=== PATIENT | male | born 1940 | race African-American/Black ===

== ENCOUNTER 2016-11-16 20:04 | Inpatient (IN) ==
[2016-11-16] MEDS ORDERED: SUCCINYLCHOLINE 200 MG/10 ML VIAL IV STA (20:09)
[2016-11-16] MEDS ORDERED: ETOMIDATE 20 MG/10 ML VIAL IV STA (20:09)
[2016-11-16] MEDS ORDERED: PROPOFOL 1,000 MG/100 ML BOTTLE IV ONE (20:12)
[2016-11-16] MEDS ORDERED: hydrALAZINE 20 MG/1 ML VIAL IV STA (20:15)
[2016-11-16] MEDS: PROPOFOL 1,000 MG/100 ML BOTTLE IV SCH (20:17)
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
[2016-11-16] MEDS ORDERED: LEVOFLOXACIN INJ 750 MG in PREMIX 1 EACH IV STA (20:22)
[2016-11-16] MEDS ORDERED: methylPREDNISolone SOD SUC 125 MG/2 ML VIAL IV STA (20:22)
[2016-11-16] MEDS ORDERED: SUCCINYLCHOLINE 200 MG/10 ML VIAL ONE (20:24)
[2016-11-16] MEDS ORDERED: ETOMIDATE 20 MG/10 ML VIAL IV ONE (20:24)
[2016-11-16] MEDS ORDERED: VECURONIUM 10 MG VIAL IV ONE (20:29)
[2016-11-16] MEDS ORDERED: VECURONIUM 10 MG VIAL IV STA (20:32)
[2016-11-16 20:43] LABS: ABG Base Excess -2.9 MMOL/L (-2.5-2.5); ABG HCO3 24.6 MMOL/L (20-26); ABG Oxygen Saturation 96.7 % (95-100); ABG PCO2 54.8 MM HG (35-48); ABG PO2 94.7 MM HG (80-95); ABG TCO2 26.3 MMOL/L (23-27); Allen Test Positive; Pt O2 Delivery Device Ventilator
--- NOTE | 2016-11-16 20:44 | XRay Report ---
Portable chest Date: 11/16/2016 Clinical history: Endotracheal tube placement Comparison: 07/24/2016 Technique: Portable AP supine chest Findings: The heart is minimally enlarged with uncoiling the aorta. Chronic scarring in the lungs with minimal atelectasis. Calcified granulomata/nodes. Degenerative changes are noted with stable mediastinum. Impression: Minimal cardiomegaly. Chronic scarring with evidence of old healed granulomatous disease and minimal atelectasis. Endotracheal tube is in satisfactory position. PROCEDURE INTERPRETED AT [facility] DEPARTMENT OF RADIOLOGY Final Report Signed by: Dr. Kathryn Felton
[2016-11-16 20:51] LABS: Basophils # 0.1 10*3/uL (0.0-0.2); Basophils % 0.6 % (0.0-0.8); Eosinophils # 0.6 10*3/uL (0.0-0.87); Eosinophils % 7.4 % (0.00-10.9); Hematocrit 40.5 VOL% (42.0-52.0); Hemoglobin 13.1 GM/DL (14.0-18.0); Immature Granulocytes % 0.4 %; Immature Granulocytes Absolute 0.03 #; Lymphocytes # 2.6 10*3/uL (1.4-4.0); Lymphocytes % 34.2 % (21.2-54.2); Mean Corpuscular HGB Conc 32.3 GM/DL (32-36); Mean Corpuscular Hemoglobin 28 PG (27-34); Mean Corpuscular Volume 85.8 FL (87-102); Mean Platelet Volume 10.5 FL (9.6-12.0); Monocytes # 1.1 10*3/uL (0.11-0.8); Monocytes % 13.9 % (1.7-12.7); Neutrophils # 3.4 10*3/uL (1.4-7.4); Neutrophils % 43.5 % (38.7-73.9); Platelet Count 291 T/CUMM (130-400); Red Blood Count 4.72 MC/CUMM (3.8-5.5); Red Cell Distribution Width 14.6 % (9.3-17.3); White Blood Count 7.7 T/CUMM (4-12)
[2016-11-16 20:54] LABS: Apearance,Urine CLOUDY (Clear); Bacteria,Urine Many /HPF (Few); Bilirubin,Urine Negative (Negative); Blood, Urine Large mg/dL (Negative); Glucose,Urine (UA) Negative (Negative); Ketones,Urine Negative (Negative); Mucus,Urine Few /LPF (Occasional); Nitrite,Urine Negative (Negative); Protein,Urine 100 MG/DL; RBC,Urine 77 /HPF (0-4); Urine Color Amber (Yellow); Urine Specific Gravity 1.011 (1.001-1.035); Urine Urobilinogen < 2.0 EU/DL (0.2-1.0); WBC,Urine 820 /HPF (0-6)
[2016-11-16] MEDS ORDERED: SODIUM CHLORIDE 0.9% 1,000 ML IV STA ×2 (20:57→21:44)
[2016-11-16 21:02] LABS: Barbiturates Screen,Urine Negative (Negative); Benzodiazepines Screen,Urine Negative (Negative); Cannabinoid Screen,Urine Negative (Negative); Opiate Screen,Urine Negative (Negative); Phencyclidine Screen,Urine Negative (Negative)
[2016-11-16 21:04] LABS: D-Dimer <= 0.5 MG/L FEU; INR 3.4; PT Patient Result 38.4 SECS; Partial Thromboplastin Time 55.6 SECS (0-40)
[2016-11-16 21:05] LABS: Alanine Aminotransferase 23 U/L (16-61); Albumin 3.3 G/DL (3.4-5.0); Alkaline Phosphatase 137 U/L (45-117); Aspartate Amino Transferase 23 U/L (0-37); Bilirubin,Total < 0.39 MG/DL (0.2-1.0); Blood Urea Nitrogen 31 MG/DL (7-18); Calcium 8.7 MG/DL (8.5-10.1); Glucose 150 MG/DL (74-106); Osmolality,Calculated 288.4 MOS/KG (273-304); Potassium 5.8 MMOL/L (3.5-5.1); Sodium 140 MMOL/L (136-145); Total Protein 7.9 G/DL (6.4-8.3); Troponin I Only < 0.015 NG/ML (0.00-0.045)
[2016-11-16] MEDS ORDERED: LEVOFLOXACIN INJ 150 ML IV ONE (21:15)
[2016-11-16] MEDS ORDERED: methylPREDNISolone SOD SUC 125 MG/2 ML VIAL ONE (21:15)
--- NOTE | 2016-11-16 21:22 | XRay Report ---
Portable chest Date: 11/16/2016 Clinical history: Nasogastric tube placement Comparison: 11/16/2016 Technique: Portable AP sitting chest Findings: The heart is minimally enlarged with uncoiling of the aorta. Chronic scarring lungs with minimal atelectasis. Endotracheal tube and nasogastric tube are in satisfactory position. Degenerative changes are noted with stable mediastinum. Impression: Endotracheal tube and nasogastric tube in satisfactory position. Chronic scarring with minimal atelectasis and cardiomegaly. PROCEDURE INTERPRETED AT [facility] DEPARTMENT OF RADIOLOGY Final Report Signed by: Dr. Kathryn Felton
--- NOTE | 2016-11-16 21:26 | CT Report ---
Referring physician: Ilir Boykin Exam: CT brain without contrast Date: 11/16/2016 Comparison: 09/25/2016 Reason: Alteration of consciousness Technique: Axial images of the head were obtained without the use of contrast. Total DLP was 997.90 mGy*cm. Findings: The right lateral ventricle remains larger in size than the left with no midline displacement.. There is no evidence of an acute infarction, recent intracranial hemorrhage or abnormal mass effect. Large right MCA distribution infarction including the right basal ganglia location. Extensive atrophy with associated prominence of the subarachnoid spaces. The osseous structures appear intact. The mastoid air cells are clear. Multiple scalp calcifications are noted. Progressive mucosal thickening/fluid in the visualized paranasal sinuses. Impression: No acute intracranial abnormality is identified. Large right MCA distribution infarction with prominent atrophy and associated chronic subdural hygromas. Progressive sinusitis. The CT exam was performed using one or more of the following dose reduction techniques: Automated exposure control and adjustment of the mA and/or kV according to patient size. PROCEDURE INTERPRETED AT [facility] DEPARTMENT OF RADIOLOGY Final Report Signed by: Dr. Kathryn Felton
[2016-11-16 21:52] LABS: ABG Base Excess -1.2 MMOL/L (-2.5-2.5); ABG HCO3 25.4 MMOL/L (20-26); ABG Oxygen Saturation 93.4 % (95-100); ABG PCO2 51.2 MM HG (35-48); ABG PH 7.314 (7.35-7.45); ABG PO2 69.8 MM HG (80-95); Allen Test Positive; Pt O2 Delivery Device Ventilator
[2016-11-16] MEDS ORDERED: ONDANSETRON 4 MG/2 ML VIAL IV PRN (21:56)
[2016-11-16] MEDS ORDERED: GLUCAGON 1 MG VIAL IM PRN (21:56)
[2016-11-16] MEDS ORDERED: hydrALAZINE 20 MG/1 ML VIAL IV PRN (21:56)
[2016-11-16] MEDS ORDERED: DEXTROSE 50% 25 GM/50 ML VIAL IV PRN (21:56)
[2016-11-16] MEDS ORDERED: ALBUTEROL/IPRATROPIUM 3 ML NEB RESP TX SCH (22:00)
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
[2016-11-16] MEDS: PHENYTOIN 100 MG/2 ML VIAL IV SCH (23:13)
[2016-11-16] MEDS: INSULIN REGULAR 100 UNIT/ML SUBCUT SCH (23:40)
[2016-11-16] MEDS: SODIUM CHLORIDE 0.45% 1,000 ML IV SCH (23:52)
[2016-11-17] MEDS: ALBUTEROL/IPRATROPIUM 3 ML NEB RESP TX SCH ×4 (00:12→19:11)
[2016-11-17 03:25] LABS: ABG Base Excess -2.4 MMOL/L (-2.5-2.5); ABG HCO3 23.9 MMOL/L (20-26); ABG Oxygen Saturation 97.5 % (95-100); ABG PCO2 47.2 MM HG (35-48); ABG PH 7.322 (7.35-7.45); ABG PO2 104.6 MM HG (80-95); ABG TCO2 25.3 MMOL/L (23-27); Allen Test Positive; Pt O2 Delivery Device Ventilator
[2016-11-17] MEDS ORDERED: NOREPINEPHRINE 4 MG/4 ML VIAL IV ONE (04:21)
[2016-11-17 04:23] LABS: Basophils % 0.2 % (0.0-0.8); Eosinophils % 0.2 % (0.00-10.9); Hematocrit 36.9 VOL% (42.0-52.0); Hemoglobin 11.6 GM/DL (14.0-18.0); Immature Granulocytes % 0.4 %; Immature Granulocytes Absolute 0.04 #; Lymphocytes % 9.7 % (21.2-54.2); Mean Corpuscular HGB Conc 31.4 GM/DL (32-36); Mean Corpuscular Hemoglobin 28 PG (27-34); Mean Corpuscular Volume 88.5 FL (87-102); Mean Platelet Volume 10.3 FL (9.6-12.0); Monocytes # 0.2 10*3/uL (0.11-0.8); Monocytes % 1.7 % (1.7-12.7); Neutrophils # 8.8 10*3/uL (1.4-7.4); Neutrophils % 87.8 % (38.7-73.9); Platelet Count 286 T/CUMM (130-400); Red Blood Count 4.17 MC/CUMM (3.8-5.5); Red Cell Distribution Width 14.6 % (9.3-17.3)
[2016-11-17] MEDS ORDERED: NOREPINEPHRINE 8 MG in SODIUM CHLORIDE 0.9% 242 ML IV SCH (04:30)
--- NOTE | 2016-11-17 04:34 | EKG Report ---
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
[2016-11-17 04:43] LABS: INR 3.9
[2016-11-17 04:44] LABS: PT Patient Result 44.8 SECS; Partial Thromboplastin Time 74.2 SECS (0-40)
[2016-11-17 05:00] LABS: Alanine Aminotransferase 20 U/L (16-61); Albumin 2.8 G/DL (3.4-5.0); Alkaline Phosphatase 125 U/L (45-117); Aspartate Amino Transferase 22 U/L (0-37); Blood Urea Nitrogen 31 MG/DL (7-18); Calcium 9.2 MG/DL (8.5-10.1); Glucose 100 MG/DL (74-106); Potassium 5.3 MMOL/L (3.5-5.1); Sodium 143 MMOL/L (136-145)
[2016-11-17] MEDS: PROPOFOL 1,000 MG/100 ML BOTTLE IV SCH ×5 (05:10→21:53)
[2016-11-17] MEDS: INSULIN REGULAR 100 UNIT/ML SUBCUT SCH ×3 (05:43→17:17)
--- NOTE | 2016-11-17 06:56 | XRay Report ---
Exam: XR chest 1V portable Date: 11/17/2016 4:00 AM Indication: Follow-up ventilator Comparison: 11/16/2016 Technical: AP portable Findings: Endotracheal tube is at the level aortic knob and mid clavicle. Nasogastric traverses esophagus into the stomach. External cardiac leads are present. Mild prominence cortex silhouette. Lateral marginal osteophytes of the thoracic spine with ASVD. No obvious pneumothorax or consolidations or significant effusions. Impression: 1. Stable appearance of life-support tubing 2. Cardiomegaly without overt decompensation PROCEDURE INTERPRETED AT [facility] DEPARTMENT OF RADIOLOGY Final Report Signed by: Dr. Koko Bustamante
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
[2016-11-17 08:35] LABS: ABG Base Excess -4.1 MMOL/L (-2.5-2.5); ABG HCO3 21.5 MMOL/L (20-26); ABG Oxygen Saturation 99.5 % (95-100); ABG PH 7.337 (7.35-7.45); ABG PO2 376.9 MM HG (80-95); ABG TCO2 22.7 MMOL/L (23-27)
[2016-11-17] MEDS: SODIUM CHLORIDE 0.45% 1,000 ML IV SCH ×4 (09:10→22:34)
--- NOTE | 2016-11-17 09:33 | Internal Med Progress Note ---
Assessment and Plan (1) Acute respiratory failure Status: Acute Assessment and plan: 75-year-old male admitted to intensive care unit * Acute respiratory failure. He does not have history of any respiratory problems recently. Dr. Solo is following the patient * Change in mental status. He has had history of seizures recently. His medications have been adjusted. Will check his Dilantin level. He might have been post ictal when he went into respiratory distress * Hypertension. Will hold his blood pressure medications. He was on pressors during the night * Diabetes. Will keep him on a sliding scale * Possible sepsis. He has suprapubic catheter. Will consult urology. We will keep him on antibiotic * A. fib. INR is high. Will hold Coumadin * History of CVA with left hemiplegia. Stable * Mild dementia. Patient was recently in [facility] with agitation * No family members present Current Visit: Yes (2) A-fib Status: Acute Current Visit: Yes (3) Altered mental status Status: Acute Current Visit: Yes (4) Coronary artery disease Status: Acute Current Visit: No (5) Diabetes mellitus Status: Acute Current Visit: No (6) Essential hypertension Status: Acute Current Visit: No (7) Major depressive disorder Status: Acute Current Visit: No (8) Obstructive sleep apnea Status: Acute Current Visit: No (9) Recurrent urinary tract infection Status: Acute Current Visit: No (10) Seizure disorder Status: Acute Current Visit: No (11) Status post CVA Status: Acute Current Visit: No Internal Medicine - PN: Subj Interval history: Patient is seen and examined. Events of yesterday noted. He is on ventilator and unable to provide any history. He became unresponsive while he was sitting in his wheelchair at snf. He was found to be in respiratory distress in the emergency room and was intubated Exam (Progress Note) - Constitutional Vitals: Period Temp Pulse Resp BP Sys/Gregorio Pulse Ox Last 24 Hr 96.8 F-98.5 F 65-106 7-34 71-187/44-125 88-100 Exam: Examination: GENERAL: Sedated on ventilator HEENT: PERRLA. EOMI. Mucous membranes are moist. NECK: Neck is supple. No JVD. CVS: Regular rate and rhythm. S1 and S2 are normal. RESPIRATORY: Lungs are clear. No rales or rhonchi. ABDOMEN: Soft and nontender. Bowel sounds are present. No hepatosplenomegaly. Obese. Suprapubic catheter is in place EXT: No edema. Peripheral pulses are present. MEMORIAL COUNSELOR: Patient is sedated on ventilator SKIN: Warm and dry. MSK: No obvious deformity. Results - Labs CBC & BMP: 11/17/16 03:15 11/17/16 03:15
[2016-11-17] MEDS: SKIN HEALING OINT (AQUAPHOR) 50 GM TUBE TOP PRN (10:24)
[2016-11-17] MEDS: PHENYTOIN 100 MG/2 ML VIAL IV SCH ×2 (10:24→21:54)
[2016-11-17] MEDS: HYDROCORTISONE 100 MG VIAL IV SCH ×2 (10:24→18:40)
--- NOTE | 2016-11-17 12:20 | Urology Consultation ---
History of Present Illness - Data of Consult Consult date: 11/17/16 - Consult Narrative History of present illness: Mr. Emily Hess is a 75 year old male Mr. Shore is a 75-year-old black male who is seen in consultation because of a suprapubic catheter. I have seen the patient in the past but it has been several years ago he had a history of urethral stricture and was referred to [facility] for possible surgery. He is in a assisted now and has a suprapubic catheter. The patient is on ventilator and there is no family so I cannot get any history. On physical exam the suprapubic site is well-healed and the catheter this and there looks like it has been in for a long time and does not look like it has been change recent rate recently so I am going recommend that we change the suprapubic catheter. Based on his condition and his past history I doubt I would have any recommendations other than continuing suprapubic catheter at this time. His urine shows hematuria and pyuria which we would expect with a chronic catheterization and he has a slight elevation of his creatinine. CC: Ludwin Tyson MD - Home Medications and Allergies Home Medications: Home Medications Medication Instructions Recorded Confirmed Type Allopurinol 450 mg PO DAILY 08/23/15 11/16/16 History Amlodipine Besylate 10 mg PO DAILY 08/23/15 11/16/16 History Furosemide Tab [Lasix Tab] 60 mg PO DAILY 08/23/15 11/16/16 History Lisinopril [Prinivil] 20 mg PO BID 08/23/15 11/16/16 History Omeprazole 1 tablet PO DAILY 08/23/15 11/16/16 History Sertraline HCl 100 mg PO DAILY 08/23/15 11/16/16 History Insulin Aspart Prot/Asp 70/30 74 unit SUBCUT TIDAC 05/27/16 11/16/16 History [NovoLOG Mix 70/30] HYDROcodone/ACETAMIN 7.5-325 7.5 mg PO Q6HR PRN 05/28/16 11/16/16 History [[place] 7.5-325] Lactulose 30 ml PO BID 05/28/16 11/16/16 History Melatonin/Pyridoxine HCl (B6) 9 mg PO BEDTIME 05/28/16 11/16/16 History [Melatonin 3 mg Tablet] Potassium Chloride [Klor-Con 10] 10 meq PO TID 05/28/16 11/16/16 History Aspirin Chew Tab 81 mg PO DAILY #100 tablet 05/31/16 11/16/16 Rx Atenolol 25 mg PO DAILY 06/08/16 11/16/16 History Phenytoin ER Cap [Dilantin Cap] 200 mg PO BID #120 capsule 06/19/16 11/16/16 Rx Warfarin [Coumadin] 5 mg PO DAILY 07/24/16 11/16/16 History Pregabalin [Lyrica] 150 mg PO BEDTIME #30 capsule 07/27/16 11/16/16 Rx OLANZapine [Olanzapine] 5 mg PO BID 10/21/16 11/16/16 History Polyethylene Glycol Powder 1 packet PO DAILY 10/21/16 11/16/16 History [Miralax] LORazepam INJ [Ativan Inj] 2 mg IM TID PRN 11/16/16 11/16/16 History Allergies/Adverse Reactions: Allergies Allergy/AdvReac Type Severity Reaction Status Date / Time Penicillins Allergy Intermediate ITCHING Verified 11/16/16 20:16 ampicillin Allergy Unknown Unknown/Unable Verified 11/16/16 20:16 to obtain Exam - Constitutional Vitals: Period Temp Pulse Resp BP Sys/Gregorio Pulse Ox Last 24 Hr 96.8 F-98.5 F 65-106 7-34 71-187/41-125 88-100 Results - Labs CBC & BMP: 11/17/16 03:15 11/17/16 03:15
[2016-11-17 14:11] LABS: Apearance,Urine CLOUDY (Clear); Bacteria,Urine Moderate /HPF (Few); Bilirubin,Urine Negative (Negative); Blood, Urine Negative (Negative); Glucose,Urine (UA) Negative (Negative); Ketones,Urine Negative (Negative); Mucus,Urine Occasional /LPF (Occasional); Nitrite,Urine Negative (Negative); Protein,Urine Negative; RBC,Urine 6 /HPF (0-4); Urine Color Yellow (Yellow); Urine Specific Gravity 1.013 (1.001-1.035); Urine Urobilinogen < 2.0 EU/DL (0.2-1.0); WBC,Urine 53 /HPF (0-6)
--- NOTE | 2016-11-17 15:10 | ECHO Report ---
Huang Diaz Exam Date: 11/17/2016 09:43 Referring Physician: Technologist: Reyna Garzon Age: 75 Ht (in): 72 Wt (lb): 223 Gender: M Exam Location: [facility] Echo Indications: acute resp failure, SAIGE, UTI, S/P CVA, lt.hemiplegia, CAD, seizure, altered mental status, SOB, Pt. on vent BP: 71 / 45 HR: 77 Rhythm: Sinus Technical Quality: Technically difficult study IMPRESSIONS Technically difficult study.EF 60 % . Grade I/IV diastolic dysfunction (abnormal relaxation filling pattern), normal to mildly elevated filling pressures. Normal right ventricular size and systolic function. The right atrium is mildly enlarged. The left atrium is mildly enlarged. Mitral valve sclerosis. No mitral valve regurgitation. Aortic valve sclerosis. No aortic valve regurgitation. Moderate tricuspid valve regurgitation. [id number]. Pulmonic valve not well visualized. No pericardial effusion. Normal size aortic root and proximal ascending aorta No LV or LA clot seen.. MEASUREMENTS (Male / Female) Normal Values 2D ECHO LV Diastolic Diameter PLAX 3.2 cm 4.2 - 5.9 / 3.9 - 5.3 cm LV Systolic Diameter PLAX 2.1 cm LV Fractional Shortening PLAX 36.2 % IVS Diastolic Thickness 1.7 cm 0.6 - 1.0 / 0.6 - 0.9 cm LVPW Diastolic Thickness 1.4 cm 0.6 - 1.0 / 0.6 - 0.9 cm RV Internal Dim ED PLAX 2.7 cm Aortic Root Diameter 3.1 cm LA Systolic Diameter LX 3.6 cm 3.0 - 4.0 / 2.7 - 3.8 cm DOPPLER TR Peak Velocity 266.0 cm/s TR Peak Gradient 28.3 mmHg FINDINGS Left Ventricle EF 60 % . Grade I/IV diastolic dysfunction (abnormal relaxation filling pattern), normal to mildly elevated filling pressures. Right Ventricle Normal right ventricular size and systolic function. Right Atrium The right atrium is mildly enlarged. Left Atrium The left atrium is mildly enlarged. Mitral Valve Mitral valve sclerosis. No mitral valve regurgitation. Aortic Valve Aortic valve sclerosis. No aortic valve regurgitation. Tricuspid Valve Morphologically normal tricuspid valve. Moderate tricuspid valve regurgitation. [id number]. Pulmonic Valve Pulmonic valve not well visualized. Pericardium No pericardial effusion. Aorta Normal size aortic root and proximal ascending aorta. Grady Plavac (Electronically Signed) Final Date: 17 November 2016 15:09
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
[2016-11-17] MEDS: LEVOFLOXACIN INJ 750 MG in PREMIX 1 EACH IV SCH (20:38)
[2016-11-18] MEDS: INSULIN REGULAR 100 UNIT/ML SUBCUT SCH ×4 (00:37→18:52)
[2016-11-18] MEDS: ALBUTEROL/IPRATROPIUM 3 ML NEB RESP TX SCH ×4 (01:20→19:16)
[2016-11-18] MEDS: PROPOFOL 1,000 MG/100 ML BOTTLE IV SCH ×4 (02:42→18:26)
[2016-11-18 04:04] LABS: ABG Base Excess -2.3 MMOL/L (-2.5-2.5); ABG HCO3 22.8 MMOL/L (20-26); ABG Oxygen Saturation 98.9 % (95-100); ABG PCO2 40.1 MM HG (35-48); ABG PH 7.372 (7.35-7.45); ABG PO2 156.8 MM HG (80-95); Allen Test Positive; Pt O2 Delivery Device Ventilator
[2016-11-18] MEDS: SODIUM CHLORIDE 0.45% 1,000 ML IV SCH ×5 (04:24→22:00)
[2016-11-18 04:55] LABS: Basophils % 0.1 % (0.0-0.8); Eosinophils % 0.1 % (0.00-10.9); Hematocrit 31.9 VOL% (42.0-52.0); Hemoglobin 10.3 GM/DL (14.0-18.0); Immature Granulocytes % 0.4 %; Immature Granulocytes Absolute 0.04 #; Lymphocytes # 1.8 10*3/uL (1.4-4.0); Lymphocytes % 19.7 % (21.2-54.2); Mean Corpuscular HGB Conc 32.3 GM/DL (32-36); Mean Corpuscular Hemoglobin 28 PG (27-34); Mean Corpuscular Volume 85.5 FL (87-102); Mean Platelet Volume 10.1 FL (9.6-12.0); Monocytes % 10.5 % (1.7-12.7); Neutrophils # 6.4 10*3/uL (1.4-7.4); Neutrophils % 69.2 % (38.7-73.9); Platelet Count 265 T/CUMM (130-400); Red Blood Count 3.73 MC/CUMM (3.8-5.5); Red Cell Distribution Width 14.6 % (9.3-17.3); White Blood Count 9.2 T/CUMM (4-12)
[2016-11-18 05:15] LABS: INR 3.7
[2016-11-18 05:24] LABS: Calcium 8.2 MG/DL (8.5-10.1); Osmolality,Calculated 287.5 MOS/KG (273-304); Potassium 4.5 MMOL/L (3.5-5.1)
--- NOTE | 2016-11-18 06:33 | Pulmonology Progress Note ---
Pulmonary - PN: Subj Interval history: 75-year-old white male who lives in a residential. He was brought in unresponsive. Has urinary tract infection. Previous stroke. Starting to wake up now. He does have a seizure disorder and his Dilantin level was 19. He is on the ventilator and his ABGs are improved. Chest x-ray is clear. Will progress with weaning today. Exam (Progress Note) - Constitutional Vitals: Period Temp Pulse Resp BP Sys/Gregorio Pulse Ox Last 24 Hr 97.5 F-97.9 F 68-95 7-26 79-177/42-89 98-100 Exam: Sedated. Vital signs normal. Pupils react to light. Arcus senilis. Orotracheal tube in place. Neck supple. Chest clear equal breath sounds. Heart normal rate rhythm no murmurs. Abdomen soft no masses. Bowel sounds present. Extremities no clubbing cyanosis trace of edema. Results - Labs CBC & BMP: 11/18/16 04:18 11/18/16 04:18 Lab Results: I have reviewed the past 24 hour labs - Diagnostic Findings Procedure: Chest x-ray: image reviewed by me (Lung bryant clear. ET tube good position.) Assessment and Plan (1) Acute respiratory failure Status: Acute Assessment and plan: We will adjust ventilator settings. Has a mild acidosis. There is no reported underlying chronic lung problems. He has been on the ventilator about 10 years ago however. Respiratory acidosis. 11/18/2016 improved. Will reduce PEEP and change to IMV. Begin weaning trials. Current Visit: Yes (2) Obstructive sleep apnea Status: Acute Assessment and plan: We will keep this in mind when we get to the point of extubation. Will need CPAP at that time and close watch of mental status. Current Visit: No (3) Recurrent urinary tract infection Status: Acute Assessment and plan: Urinalysis certainly consistent with urinary tract infection. May have sepsis due to this. However there is no fever and his white blood count is normal. He does have elevated lactic acid level decreased level of consciousness and hypotension. 11/18/2016 no report yet on urine culture. Continuing empiric antibiotics. Renal function looks good with creatinine 1.2. Current Visit: No (4) Status post CVA Status: Acute Assessment and plan: Previous right middle cerebral artery stroke with dense left hemiplegia. He also has some dementia. Current Visit: No (5) Left hemiplegia Status: Acute Assessment and plan: We will keep in mind when evaluating responsiveness. 11/18/2016 only moving right side when alert. Current Visit: No (6) Coronary artery disease Status: Acute Assessment and plan: Previous coronary stents and coronary bypass surgery. Cardiac enzymes are negative thus far. 11/18/2016 normal LV ejection fraction on echo. Has mild pulmonary hypertension. Current Visit: No (7) Seizure disorder Status: Acute Assessment and plan: Defer to neurology. 11/18/2016 has been seen by neurology. Dilantin level 19. No seizures. Current Visit: No (8) Altered mental status Status: Acute Assessment and plan: Unresponsive but presently is on propofol 11/18/2016 I am told by nurses that patient is responsive when propofol is held. He is currently sedated Current Visit: No
--- NOTE | 2016-11-18 07:34 | XRay Report ---
Exam: XR chest 1V portable Date: 11/18/2016 4:00 AM Indication: Follow-up ventilator respiratory failure Comparison: 11/17/2016 Technical: AP portable Findings: Endotracheal tube at the level aortic knob. Nasogastric traverses esophagus. Mild cardiac enlargement present. External cardiac leads are present. Mediastinum is otherwise intact. Lateral marginal osteophytes thoracic spine. No pneumothorax. Minimal interstitial thickening in the infrahilar regions bilaterally without obvious effusions Impression: 1. Stable appearance of life-support tubing 2. No significant interval changes. PROCEDURE INTERPRETED AT [facility] DEPARTMENT OF RADIOLOGY Final Report Signed by: Dr. Koko Bustamante
--- NOTE | 2016-11-18 07:52 | Urology Progress Note ---
Urology - PN: Subj Interval history: The patient's blood culture is positive. I have not been able to get any further history about why the patient has a suprapubic catheter but he will of course have a chronic urinary tract infection as long as he has this. Going recommend we do a renal ultrasound to evaluate any possible upper tract obstruction Exam - Constitutional Vitals: Period Temp Pulse Resp BP Sys/Gregorio Pulse Ox Last 24 Hr 97.6 F-97.9 F 69-95 12-21 85-177/49-89 98-100 Results - Labs CBC & BMP: 11/18/16 04:18 11/18/16 04:18
[2016-11-18 07:55] LABS: ABG Base Excess -2.3 MMOL/L (-2.5-2.5); ABG HCO3 22.5 MMOL/L (20-26); ABG Oxygen Saturation 99.3 % (95-100); ABG PCO2 39.3 MM HG (35-48); ABG TCO2 20.6 MMOL/L (23-27)
--- NOTE | 2016-11-18 08:23 | Internal Med Progress Note ---
Assessment and Plan (1) Acute respiratory failure Status: Acute Assessment and plan: 75-year-old male admitted to intensive care unit * Acute respiratory failure. He is waking up. Weaning will be started from ventilator * Change in mental status. Dilantin level is okay * Hypertension. Will hold his blood pressure medications. He was on pressors during the night * Diabetes. Will keep him on a sliding scale * Possible sepsis. Blood cultures are positive for gram-positive cocci. Will add vancomycin * A. fib. INR is high. Will hold Coumadin * History of CVA with left hemiplegia. Stable * No family members present Current Visit: Yes (2) A-fib Status: Acute Current Visit: Yes (3) Altered mental status Status: Acute Current Visit: Yes (4) Coronary artery disease Status: Acute Current Visit: No (5) Diabetes mellitus Status: Acute Current Visit: No (6) Essential hypertension Status: Acute Current Visit: No (7) Major depressive disorder Status: Acute Current Visit: No (8) Obstructive sleep apnea Status: Acute Current Visit: No (9) Recurrent urinary tract infection Status: Acute Current Visit: No (10) Seizure disorder Status: Acute Current Visit: No (11) Status post CVA Status: Acute Current Visit: No Internal Medicine - PN: Subj Interval history: Patient is seen and examined. He appears comfortable on the ventilator Exam (Progress Note) - Constitutional Vitals: Period Temp Pulse Resp BP Sys/Gregorio Pulse Ox Last 24 Hr 97.6 F-97.9 F 69-95 12-21 85-177/49-86 98-100 Exam: Examination: GENERAL: Sedated on ventilator HEENT: PERRLA. EOMI. NECK: Neck is supple. No JVD. CVS: Regular rate and rhythm. S1 and S2 are normal. RESPIRATORY: Lungs are clear. No rales or rhonchi. ABDOMEN: Soft and nontender. Obese. Suprapubic catheter is in place EXT: No edema. Peripheral pulses are present. CUFF SLITTER: Patient is sedated on ventilator SKIN: Warm and dry. MSK: No obvious deformity. Results - Labs CBC & BMP: 11/18/16 04:18 11/18/16 04:18
[2016-11-18] MEDS: HYDROCORTISONE 100 MG VIAL IV SCH ×2 (08:27→20:35)
--- NOTE | 2016-11-18 09:22 | Neurology Progress Note ---
Neurology - PN : Subjective Interval history: Patient seems to be doing better. He would wake up when he is off of sedation. Following commands in the right side. He has a spastic left hemiparesis. No seizures reported Exam (Progress Note) - Constitutional Vitals: Period Temp Pulse Resp BP Sys/Gregorio Pulse Ox Last 24 Hr 97.2 F-97.9 F 69-95 12-21 85-177/49-86 98-100 Exam: GENERAL: Patient is in no acute distress. NECK: Neck is supple. There is no JVD. No carotid bruits present. No thyroid masses. CVS: First and second heart sounds are normal. There is no S3 present. Regular rate and rhythm. RESPIRATORY: Lungs are clear to auscultation without any rales or rhonchi. ABDOMEN: Soft and non-tender. Bowel sounds are present. There is no hepatosplenomegaly. EXT: There is no palpable edema. Peripheral pulses are present. Skin: No rashes Central Nervous system: General: on Vent Speech:On vent Comprehension: He is sedated at this time however when diprivan is off he is following commands and moving appropriate Facial expressions: Normal Cranial Nerves: CN1/Olfactory: Normal CN II/ Optic: Normal, Visual Humphrey unreliable CN III, and : MAYA & EOMI CN V: Normal & intact CN VII: face is symmetric CNVIII: Normal CN XI/X/XI/XII: Intact and Normal Motor: Bulk and Tone is normal. Strength cannot be assessed however he has left sided spasticity Sensory: Cannot be assessed Reflexes: 1+ and symmetrical Cerebellar function: Cannot be assessed Toes: Equivocal Gait: Cannot be assessed Results - Labs CBC & BMP: 11/18/16 04:18 11/18/16 04:18 Assessment and Plan (1) History of seizure Status: Acute Assessment and plan: Continue Dilantin for now. No witnessed seizure reported. Current Visit: Yes (2) Altered level of consciousness Status: Acute Assessment and plan: Etiology is not clear. Could very well be due to UTI and urosepsis. No clear evidence of a stroke Continue current supportive management Patient is getting CPAP trials Hopefully will be extubated in next day or 2 Current Visit: No
[2016-11-18] MEDS: VANCOMYCIN INJ 1,000 MG in SODIUM CHLORIDE 0.9% 250 ML IV SCH ×2 (11:09→20:36)
[2016-11-18] MEDS: PHENYTOIN 100 MG/2 ML VIAL IV SCH ×2 (11:09→22:00)
--- NOTE | 2016-11-18 15:09 | Ultrasound Report ---
Exam: US renal Bilateral Date: 11/18/2016 7:52 AM Comparison: 06/10/2016 Indication: Sepsis, evaluate for obstruction Technique:[Multiple transabdominal real-time scans were obtained] of the kidneys. Color-flow scans obtained. Ultrasound images were captured and stored. Findings: Right kidney measures 90 x 52 x 41 mm. Left kidney measures 109 x 47 x 41 mm. 30 x 26 x 26 mm simple appearing cyst in the upper pole right kidney. 18 x 18 x 17 mm simple appearing cyst in the lower pole of the left kidney. No hydronephrosis. Color-flow documented in the kidneys. 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 No hydronephrosis. PROCEDURE INTERPRETED AT [facility] DEPARTMENT OF RADIOLOGY Final Report Signed by: Dr. Kathryn Felton
[2016-11-18] MEDS: LEVOFLOXACIN INJ 750 MG in PREMIX 1 EACH IV SCH (20:36)
[2016-11-19] MEDS: PROPOFOL 1,000 MG/100 ML BOTTLE IV SCH ×2 (00:07→04:19)
[2016-11-19] MEDS: INSULIN REGULAR 100 UNIT/ML SUBCUT SCH ×4 (00:27→18:27)
[2016-11-19] MEDS: ALBUTEROL/IPRATROPIUM 3 ML NEB RESP TX SCH ×4 (01:10→19:25)
[2016-11-19 03:05] LABS: Allen Test Positive; Pt O2 Delivery Device Ventilator
[2016-11-19 03:17] LABS: ABG Base Excess -1.7 MMOL/L (-2.5-2.5); ABG HCO3 23.2 MMOL/L (20-26); ABG PH 7.381 (7.35-7.45); ABG PO2 105.5 MM HG (80-95); ABG TCO2 24.4 MMOL/L (23-27)
[2016-11-19 04:47] LABS: Basophils % 0.4 % (0.0-0.8); Eosinophils % 0.2 % (0.00-10.9); Hematocrit 34.1 VOL% (42.0-52.0); Hemoglobin 10.9 GM/DL (14.0-18.0); Immature Granulocytes % 0.5 %; Immature Granulocytes Absolute 0.04 #; Lymphocytes # 1.7 10*3/uL (1.4-4.0); Lymphocytes % 20.2 % (21.2-54.2); Mean Corpuscular Hemoglobin 28 PG (27-34); Mean Corpuscular Volume 86.1 FL (87-102); Mean Platelet Volume 9.7 FL (9.6-12.0); Monocytes % 11.9 % (1.7-12.7); Neutrophils # 5.5 10*3/uL (1.4-7.4); Neutrophils % 66.8 % (38.7-73.9); Platelet Count 244 T/CUMM (130-400); Red Blood Count 3.96 MC/CUMM (3.8-5.5); Red Cell Distribution Width 14.7 % (9.3-17.3); White Blood Count 8.2 T/CUMM (4-12)
[2016-11-19 05:21] LABS: Calcium 8.4 MG/DL (8.5-10.1); Osmolality,Calculated 290.1 MOS/KG (273-304)
[2016-11-19 05:27] LABS: PT Patient Result 34.5 SECS
--- NOTE | 2016-11-19 06:21 | XRay Report ---
Exam: XR chest 1V portable Date: 11/19/2016 4:00 AM Indication: Follow-up ventilator respiratory failure Comparison: 11/18/2016 Technical: AP portable Findings: Endotracheal tube at the aortic knob. Nasogastric traverses esophagus into the stomach. Mild prominence cortex silhouette. Lateral marginal osteophytes are present. External cardiac leads are present. No pneumothorax. Mediastinum is intact Impression: 1. Stable appearance of life support tubing 2. No consolidating infiltrates or effusions PROCEDURE INTERPRETED AT [facility] DEPARTMENT OF RADIOLOGY Final Report Signed by: Dr. Koko Bustamante
--- NOTE | 2016-11-19 07:47 | Urology Progress Note ---
Urology - PN: Subj Interval history: I was never able to find out why the patient has a suprapubic catheter but considering his history of urethral stricture this is probably going to be a permanent situation. His upper tracts are normal on renal ultrasound. On the recommend that the suprapubic catheter be changed every month and as needed. I will see again if needed Exam - Constitutional Vitals: Period Temp Pulse Resp BP Sys/Gregorio Pulse Ox Last 24 Hr 97.2 F-99.7 F 92-122 12-29 76-209/50-95 10-100 Results - Labs CBC & BMP: 11/19/16 04:24 11/19/16 04:24
[2016-11-19] MEDS ORDERED: LORazepam 2 MG/1 ML VIAL IV PRN (08:18)
--- NOTE | 2016-11-19 08:18 | Internal Med Progress Note ---
Assessment and Plan (1) Acute respiratory failure Status: Acute Assessment and plan: 75-year-old male admitted to intensive care unit * Acute respiratory failure. Patient did well with CPAP trials yesterday * Change in mental status. Dilantin level is okay * Hypertension. His blood pressure is running high. Will start home medications * Diabetes. Will keep him on a sliding scale * Possible sepsis. Blood cultures are positive for gram-positive cocci. Urine culture shows gram-negative rods and yeast. Will add vancomycin. Will consult ID for advice * A. fib. INR is high. Will hold Coumadin * History of CVA with left hemiplegia. Stable * No family members present Current Visit: Yes (2) A-fib Status: Acute Current Visit: Yes (3) Altered mental status Status: Acute Current Visit: Yes (4) Coronary artery disease Status: Acute Current Visit: No (5) Diabetes mellitus Status: Acute Current Visit: No (6) Essential hypertension Status: Acute Current Visit: No (7) Major depressive disorder Status: Acute Current Visit: No (8) Obstructive sleep apnea Status: Acute Current Visit: No (9) Recurrent urinary tract infection Status: Acute Current Visit: No (10) Seizure disorder Status: Acute Current Visit: No (11) Status post CVA Status: Inactive Current Visit: No Internal Medicine - PN: Subj Interval history: Patient is seen and examined. He is comfortable on ventilator. He did well with CPAP trials yesterday. He is moving his right side but not purposefully Exam (Progress Note) - Constitutional Vitals: Period Temp Pulse Resp BP Sys/Gregorio Pulse Ox Last 24 Hr 97.8 F-99.7 F 92-122 12-29 76-209/50-95 10-100 Exam: Examination: GENERAL: Sedated on ventilator HEENT: PERRLA. NECK: Neck is supple. No JVD. CVS: Regular rate and rhythm. S1 and S2 are normal. RESPIRATORY: Lungs are clear. No rales or rhonchi. ABDOMEN: Soft and nontender. Suprapubic catheter is in place EXT: No edema. Peripheral pulses are present. DISPLAY DEPARTMENT MANAGER: Patient is sedated on ventilator SKIN: Warm and dry. MSK: No obvious deformity. Results - Labs CBC & BMP: 11/19/16 04:24 11/19/16 04:24 Lab Results: I have reviewed the past 24 hour labs
[2016-11-19] MEDS ORDERED: FLUCONAZOLE INJ 100 MG in IV BAG 1 EACH IV SCH (09:00)
[2016-11-19] MEDS: HYDROCORTISONE 100 MG VIAL IV SCH ×2 (09:23→19:07)
[2016-11-19] MEDS: VANCOMYCIN INJ 1,000 MG in SODIUM CHLORIDE 0.9% 250 ML IV SCH ×2 (09:23→21:56)
[2016-11-19] MEDS: amLODIPine 10 MG TABLET PO SCH (09:23)
[2016-11-19] MEDS: ATENOLOL 25 MG TABLET PO SCH (09:23)
[2016-11-19] MEDS: SERTRALINE 50 MG TABLET PO SCH (09:24)
--- NOTE | 2016-11-19 09:34 | Pulmonology Progress Note ---
Pulmonary - PN: Subj Interval history: 75-year-old black male who [facility] a [facility]. He was brought in unresponsive. Has urinary tract infection. Previous stroke. Starting to wake up now. He does have a seizure disorder and his Dilantin level was 19. He is on the ventilator and his ABGs are improved. Chest x-ray is clear. Will progress with weaning today. Patient did CPAP fairly well yesterday. This morning he is pretty drowsy. His propofol was turned off over 2 hours ago when he still drowsy. I will discontinue propofol. We will use as needed Ativan if he fights the ventilator at night. The main reason for his being on the ventilator is decreased level of consciousness. We need him to be much more alert in order to safely extubate. His lungs are clear on x-ray. ABGs look good. No reason not to extubate once his mental status improved Exam (Progress Note) - Constitutional Vitals: Period Temp Pulse Resp BP Sys/Gregorio Pulse Ox Last 24 Hr 97.8 F-99.7 F 92-122 11-29 76-209/50-95 10-100 Exam: Off sedation but not responsive. Vital signs normal. Pupils react to light. Arcus senilis. Orotracheal tube in place. Neck supple. Chest clear equal breath sounds. Heart normal rate rhythm no murmurs. Abdomen soft no masses. Bowel sounds present. Extremities no clubbing cyanosis trace of edema. Results - Labs CBC & BMP: 11/19/16 04:24 11/19/16 04:24 Lab Results: I have reviewed the past 24 hour labs - Diagnostic Findings Procedure: Chest x-ray: image reviewed by me (Chest x-ray is clear. ET tube good position) Assessment and Plan (1) Acute respiratory failure Status: Acute Assessment and plan: We will adjust ventilator settings. Has a mild acidosis. There is no reported underlying chronic lung problems. He has been on the ventilator about 10 years ago however. Respiratory acidosis. 11/18/2016 improved. Will reduce PEEP and change to IMV. Begin weaning trials. 11/19/2016 tolerating CPAP. ABGs have looked good. We can extubate when mental status improves where he can defend his airway. Stopping propofol. I think it is hanging around a while on him this morning Current Visit: Yes (2) Obstructive sleep apnea Status: Acute Assessment and plan: We will keep this in mind when we get to the point of extubation. Will need CPAP at that time and close watch of mental status. 11/19/2016 will need CPAP or BiPAP once he is extubated. Especially at bedtime Current Visit: No (3) Recurrent urinary tract infection Status: Acute Assessment and plan: Urinalysis certainly consistent with urinary tract infection. May have sepsis due to this. However there is no fever and his white blood count is normal. He does have elevated lactic acid level decreased level of consciousness and hypotension. 11/18/2016 no report yet on urine culture. Continuing empiric antibiotics. Renal function looks good with creatinine 1.2. 11/19/2016 has greater than 100,000 colonies of gram-negative rods on his urine. He is on empiric antibiotics. Check sensitivity when that is out. I think the urinary tract infection with sepsis is the main cause of his decreased level of consciousness. He has had a previous stroke with left quique-plegia. 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 He also has some dementia. Current Visit: No (5) Left hemiplegia Status: Inactive Assessment and plan: We will keep in mind when evaluating responsiveness. 11/18/2016 only moving right side when alert. Current Visit: No (6) Coronary artery disease Status: Acute Assessment and plan: Previous coronary stents and coronary bypass surgery. Cardiac enzymes are negative thus far. 11/18/2016 normal LV ejection fraction on echo. Has mild pulmonary hypertension. 11/19/2016 no signs of congestive heart failure or angina. Cardiac enzymes are normal Current Visit: No (7) Seizure disorder Status: Acute Assessment and plan: Defer to neurology. 11/18/2016 has been seen by neurology. Dilantin level 19. No seizures. 11/19/2016 he is home seizure medications need to keep the levels in the therapeutic range. Could be sedated by them Current Visit: No (8) Altered mental status Status: Acute Assessment and plan: Unresponsive but presently is on propofol 11/18/2016 I am told by nurses that patient is responsive when propofol is held. He is currently sedated. 11/19/2016 likely due to urinary tract infection with sepsis. Check blood levels of seizure medicines. Current Visit: No
[2016-11-19] MEDS: PHENYTOIN 100 MG/2 ML VIAL IV SCH ×2 (11:16→18:27)
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
[2016-11-19] MEDS: LORazepam 2 MG/1 ML VIAL IV PRN ×2 (12:50→22:35)
--- NOTE | 2016-11-19 13:20 | Physician Query Form ---
CLICK EDIT DOCUMENT TO SELECT QUERY ANSWER --> OK --> SIGN Denise Michael RN Clinical Metal Drawer W) [phone] (f) [phone] [email or web address] PROVIDERS: Make your selection(s) from the choices in EACH section by typing an "x" and enter comments in the comment section. Please use your independent medical judgment in providing your response. This request does not imply that any particular answer is desired or expected. CLINICAL INDICATORS: (Providers should not edit this section) Based on documentation of "UTI" and "the patient has a suprapubic catheter". Based on the above, could you clarify the appropriate diagnosis, if significant , that supports the above abnormalities and additional evaluation, monitoring, and/or treatment rendered: ( X) UTI due to suprapubic catheter ( ) UTI not due to suprapubic catheter ( ) Other, please specify: ( ) Clinically unable to determine COMMENTS: PLEASE ALSO DOCUMENT RESPONSE IN PROGRESS NOTES AND/OR DISCHARGE SUMMARY Use of terms such as suspected, likely, or probable (associated with a specific diagnosis that is being evaluated, monitored, or treated as if it exists) are acceptable and can be restated in the discharge summary if not ruled out. [facility]
--- NOTE | 2016-11-19 13:28 | Physician Query Form ---
CLICK EDIT DOCUMENT TO SELECT QUERY ANSWER --> OK --> SIGN Denise Michael RN Clinical Felt Tipping Machine Tender W) [phone] (f) [phone] [email or web address] PROVIDERS: Make your selection(s) from the choices in EACH section by typing an "x" and enter comments in the comment section. Please use your independent medical judgment in providing your response. This request does not imply that any particular answer is desired or expected. CLINICAL INDICATORS: (Providers should not edit this section) Based on documentation of "sepsis", HR of 100, Resp=34, Lactic acid=2.9. Pt. has altered mental status. Blood pressure- 76/44. Pt. treated with IV Levophed, Vancomycin, and IV fluids of 1/2 Normal Saline. Please clarify which, if any, of the following is the etiology of the above symptoms and treatment rendered: ( ) Sepsis due to a localized infection, please specify infection: ( ) Severe Sepsis (sepsis with acute organ failure) - Please specify type acute organ failure: ( ) Septic Shock (severe sepsis with hypotension) ( ) SIRS of noninfectious origin ( ) Sepsis due to a device, implant or graft, please specify: ( ) Localized infection only, without systemic illness, please specify infection : ( ) Bacteremia (abnormal lab finding only, does not indicate systemic illness) ( ) Other condition, please specify: ( ) Clinically unable to determine Criteria for Sepsis (SIRS due to an infection) should be based on 2 or more of the following being present: Temperature > 101F or < 96.8F WBC > 12,000 or < 4,000, or > 10% bands Tachycardia HR > 90 beats/minute Tachypnea RR > 20 breaths/minute or PaCO2 > 32mmHg Lactate level > 2.0 mmol/L (>4 is equivalent to severe sepsis) Altered Mental Status Mottling of skin or prolonged capillary refill Non-diabetic hyperglycemia (blood sugar >120 mg/dl) Other evidence of acute organ failure associated with sepsis ( severe sepsis) COMMENTS: PLEASE ALSO DOCUMENT RESPONSE IN PROGRESS NOTES AND/OR DISCHARGE SUMMARY Use of terms such as suspected, likely, or probable (associated with a specific diagnosis that is being evaluated, monitored, or treated as if it exists) are acceptable and can be restated in the discharge summary if not ruled out. [facility]D
[2016-11-19] MEDS: SODIUM CHLORIDE 0.45% 1,000 ML IV SCH (18:27)
[2016-11-19] MEDS: PREGABALIN 75 MG CAPSULE PO SCH (21:53)
[2016-11-20] MEDS: INSULIN REGULAR 100 UNIT/ML SUBCUT SCH ×4 (01:18→18:17)
[2016-11-20] MEDS: PHENYTOIN 100 MG/2 ML VIAL IV SCH ×3 (01:21→18:09)
[2016-11-20] MEDS: ALBUTEROL/IPRATROPIUM 3 ML NEB RESP TX SCH ×4 (01:32→19:40)
[2016-11-20 04:51] LABS: ABG Base Excess -2.2 MMOL/L (-2.5-2.5); ABG HCO3 22.6 MMOL/L (20-26); ABG Oxygen Saturation 99.6 % (95-100); ABG PCO2 41.6 MM HG (35-48); ABG PH 7.355 (7.35-7.45); ABG TCO2 21.2 MMOL/L (23-27); Allen Test Positive; Pt O2 Delivery Device Ventilator
[2016-11-20] MEDS: SODIUM CHLORIDE 0.45% 1,000 ML IV SCH ×2 (06:36→15:01)
[2016-11-20] MEDS: HYDROCORTISONE 100 MG VIAL IV SCH ×2 (06:37→19:12)
[2016-11-20 06:58] LABS: Basophils % 0.4 % (0.0-0.8); Eosinophils # 0.2 10*3/uL (0.0-0.87); Eosinophils % 1.8 % (0.00-10.9); Hematocrit 31.8 VOL% (42.0-52.0); Hemoglobin 10.3 GM/DL (14.0-18.0); Immature Granulocytes % 0.3 %; Immature Granulocytes Absolute 0.03 #; Lymphocytes # 2.2 10*3/uL (1.4-4.0); Lymphocytes % 22.6 % (21.2-54.2); Mean Corpuscular HGB Conc 32.4 GM/DL (32-36); Mean Corpuscular Hemoglobin 28 PG (27-34); Mean Corpuscular Volume 85.9 FL (87-102); Mean Platelet Volume 9.6 FL (9.6-12.0); Monocytes % 10.1 % (1.7-12.7); Neutrophils # 6.3 10*3/uL (1.4-7.4); Neutrophils % 64.8 % (38.7-73.9); Platelet Count 224 T/CUMM (130-400); Red Cell Distribution Width 14.6 % (9.3-17.3); White Blood Count 9.7 T/CUMM (4-12)
[2016-11-20 07:07] LABS: INR 2.4
[2016-11-20 07:12] LABS: PT Patient Result 26.8 SECS
[2016-11-20 07:22] LABS: Calcium 8.1 MG/DL (8.5-10.1); Osmolality,Calculated 288.1 MOS/KG (273-304); Potassium 3.8 MMOL/L (3.5-5.1)
[2016-11-20] MEDS ORDERED: MORPHINE 2 MG/1 ML SYRINGE IV PRN (07:48)
[2016-11-20] MEDS ORDERED: methylPREDNISolone SOD SUC 40 MG/1 ML VIAL IV ONE (08:00)
[2016-11-20] MEDS ORDERED: PANTOPRAZOLE 40 MG VIAL IV SCH (09:00)
--- NOTE | 2016-11-20 09:05 | XRay Report ---
History: Respiratory failure on ventilator Date: 11/20/2016 Study: Chest x-ray AP portable Comparison exam: 11/19/2016 The endotracheal and nasogastric tubes remain in stable position. There is stable borderline cardiomegaly. The mediastinal contour is unchanged. The pulmonary vasculature is not engorged. There is no new or worsening infiltrate. There is mild subsegmental atelectasis in the left lung base. There is no increasing pleural effusion. Osseous structures are unchanged. There is mild to moderate thoracic spondylosis. Impression: No gross change from the previous study PROCEDURE INTERPRETED AT [facility] DEPARTMENT OF RADIOLOGY Final Report Signed by: Dr. Calli Waggoner
--- NOTE | 2016-11-20 09:10 | Pulmonology Progress Note ---
Pulmonary - PN: Subj Interval history: This is a 75-year-old male patient whom I am seeing for . This man has a decreased level of consciousness at the long-term and he was intubated. His chest x-ray has been clear and his ABGs have look good thought that he had a urinary tract infection with sepsis. 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 He has some been doing CPAP trials and once he is a little stronger will advance to a T-tube. This man needs some central venous line or PICC. Chest x-ray. Overpenetrated. No masses infiltrates or pulmonary edema Microbiology. Urine is positive for E. coli and a unidentified gram-positive cocci and also positive for yeast. Blood cultures grew Staphylococcus epidermidis which was methicillin-resistant. There were 2 positive blood ABGs. FiO2 40%. PH 7.355, PCO2 41.6, PO2 162 and bicarb 22.6. Lab. White count is down 9700 with 65 segs and 23 lymphs H&H 10.3/31.8. Electrolytes are normal. Creatinine is 0.8 BUN 17 Physical exam. Vital signs. See below Neurologic. He is patient's arousable and can can can cooperate slightly Face. Symmetrical. No swelling of the lips or tongue Neck. Symmetrical no meningismus Chest. Clear Heart. No gallop Abdomen. Nondistended. Only rare bowel sounds were heard. Extremities. Nothing to suggest deep venous thrombophlebitis The remainder the physical exam is negative. Plan. 1. Weaning protocol 2. Physical therapy protocol 3. Hope to go to a T-tube soon. 4. Patient could benefit from a PICC line or central venous line. Exam (Progress Note) - Constitutional Vitals: Period Temp Pulse Resp BP Sys/Gregorio Pulse Ox Last 24 Hr 97.1 F-98.7 F 77-101 8-17 81-170/54-95 96-100 Results - Labs CBC & BMP: 11/20/16 06:47 11/20/16 06:47
[2016-11-20] MEDS: VANCOMYCIN INJ 1,000 MG in SODIUM CHLORIDE 0.9% 250 ML IV SCH ×2 (09:14→21:32)
[2016-11-20] MEDS: SERTRALINE 50 MG TABLET PO SCH (09:17)
--- NOTE | 2016-11-20 16:19 | Internal Med Progress Note ---
Assessment and Plan (1) Altered mental status Status: Acute Current Visit: Yes Qualifiers: Altered mental status type: somnolence Qualified Code(s): R40.0 - Somnolence (2) Gram-positive bacteremia Status: Acute Current Visit: Yes (3) History of seizure Status: Chronic Current Visit: Yes (4) Respiratory arrest Status: Acute Current Visit: Yes (5) UTI (urinary tract infection) Status: Acute Current Visit: Yes (6) Coronary artery disease Status: Chronic Current Visit: No Qualifiers: Coronary Disease-Associated Artery/Lesion type: [place] artery [place] vs. transplanted heart: [place] heart (7) Diabetes mellitus Status: Chronic Current Visit: Yes Qualifiers: Diabetes mellitus type: type 2 Diabetes mellitus complication detail: with chronic kidney disease Diabetes mellitus mcc insulin use: with exterminator termite use Chronic kidney disease stage: stage 3 (moderate) (8) Essential hypertension Status: Chronic Current Visit: Yes (9) Obstructive sleep apnea Status: Chronic Current Visit: Yes Internal Medicine - PN: Subj Interval history: This is a 75 year old male snf patient with history of HTN, SAIGE, seizure disorder, paroxysmal atrial fib, CAD, CABG, DM, dyslipidemia, gout, behavioral issues, stroke patient, who is in ICU on ventilator support for respiratory failure. He is improving and on CPAP trials today. ECHO shows normal LVEF and mild pulmonary hypertension, mild diastolic dysfunction. Exam (Progress Note) - Constitutional Vitals: Period Temp Pulse Resp BP Sys/Gregorio Pulse Ox Last 24 Hr 97.1 F-97.9 F 77-110 8-17 95-173/49-91 100-100 General appearance: no acute distress - Respiratory Respiratory exam: Present: clear to auscultation bilaterally - Cardiovascular Cardiovascular exam: Present: regular rate and rhythm - GI/Abdominal GI/Abdominal exam: Present: normal bowel sounds, soft - Extremities Exam Extremities exam: Present: other (left hand contracture). Absent: edema - Neurological Exam Neurological exam: Present: other (sedated on the vent) - Skin Skin exam: Present: warm, dry Results - Labs CBC & BMP: 11/20/16 06:47 11/20/16 06:47 - EKG EKG shows: sinus rhythm - Diagnostic Findings Procedure: Chest x-ray: report reviewed by me
[2016-11-20] MEDS: ATENOLOL 25 MG TABLET PO SCH (18:08)
[2016-11-20] MEDS: amLODIPine 10 MG TABLET PO SCH (18:08)
[2016-11-20] MEDS: LORazepam 2 MG/1 ML VIAL IV PRN (18:48)
[2016-11-20] MEDS: hydrALAZINE 25 MG TABLET PO SCH (21:30)
[2016-11-20] MEDS: PREGABALIN 75 MG CAPSULE PO SCH (21:31)
[2016-11-21] MEDS: INSULIN REGULAR 100 UNIT/ML SUBCUT SCH ×4 (01:05→18:04)
[2016-11-21] MEDS: ALBUTEROL/IPRATROPIUM 3 ML NEB RESP TX SCH ×4 (01:18→19:30)
[2016-11-21] MEDS: PHENYTOIN 100 MG/2 ML VIAL IV SCH ×3 (02:06→18:39)
[2016-11-21 03:13] LABS: Basophils # 0.1 10*3/uL (0.0-0.2); Basophils % 0.7 % (0.0-0.8); Eosinophils # 0.3 10*3/uL (0.0-0.87); Eosinophils % 3.4 % (0.00-10.9); Hematocrit 33.4 VOL% (42.0-52.0); Hemoglobin 10.5 GM/DL (14.0-18.0); Immature Granulocytes % 0.4 %; Immature Granulocytes Absolute 0.03 #; Lymphocytes # 1.7 10*3/uL (1.4-4.0); Mean Corpuscular HGB Conc 31.4 GM/DL (32-36); Mean Corpuscular Hemoglobin 27 PG (27-34); Mean Corpuscular Volume 85.9 FL (87-102); Mean Platelet Volume 10.1 FL (9.6-12.0); Monocytes # 0.7 10*3/uL (0.11-0.8); Monocytes % 8.5 % (1.7-12.7); Neutrophils # 5.7 10*3/uL (1.4-7.4); Platelet Count 229 T/CUMM (130-400); Red Blood Count 3.89 MC/CUMM (3.8-5.5); Red Cell Distribution Width 14.6 % (9.3-17.3); White Blood Count 8.5 T/CUMM (4-12)
[2016-11-21 03:30] LABS: INR 2.4
[2016-11-21 03:31] LABS: PT Patient Result 26.7 SECS
[2016-11-21 03:40] LABS: Calcium 8.5 MG/DL (8.5-10.1); Magnesium 1.9 MG/DL (1.8-2.4); Osmolality,Calculated 289.1 MOS/KG (273-304); Potassium 4.1 MMOL/L (3.5-5.1)
[2016-11-21 04:20] LABS: ABG Base Excess -1.4 MMOL/L (-2.5-2.5); ABG HCO3 23.3 MMOL/L (20-26); ABG Oxygen Saturation 99.2 % (95-100); ABG PCO2 41.5 MM HG (35-48); ABG PH 7.367 (7.35-7.45); ABG TCO2 21.8 MMOL/L (23-27); Allen Test Positive; Pt O2 Delivery Device Ventilator
[2016-11-21] MEDS: SODIUM CHLORIDE 0.45% 1,000 ML IV SCH ×2 (06:08→11:41)
[2016-11-21] MEDS: HYDROCORTISONE 100 MG VIAL IV SCH ×2 (07:08→18:41)
[2016-11-21] MEDS: VANCOMYCIN INJ 1,000 MG in SODIUM CHLORIDE 0.9% 250 ML IV SCH ×2 (09:23→22:44)
[2016-11-21] MEDS: amLODIPine 10 MG TABLET PO SCH (09:31)
[2016-11-21] MEDS: SERTRALINE 50 MG TABLET PO SCH (09:31)
[2016-11-21] MEDS: hydrALAZINE 25 MG TABLET PO SCH ×3 (09:36→21:41)
--- NOTE | 2016-11-21 09:49 | XRay Report ---
History: Shortness of breath Date: 11/21/2016 Study: Chest x-ray AP portable Comparison exam: 11/20/2016 The supporting tubes are unchanged. The cardiomediastinal silhouette is stable. The pulmonary vasculature is not engorged. The lungs are unchanged. There is some mild subsegmental atelectasis in the left lung base as before. There is no obvious new or worsening infiltrate. Osseous structures are similar. Impression: No gross change from the previous study PROCEDURE INTERPRETED AT [facility] DEPARTMENT OF RADIOLOGY Final Report Signed by: Dr. Calli Waggoner
[2016-11-21] MEDS: ATENOLOL 25 MG TABLET PO SCH (11:43)
--- NOTE | 2016-11-21 12:45 | Pulmonology Progress Note ---
Pulmonary - PN: Subj Interval history: This is a 75-year-old male patient whom I am seeing for . This man has a decreased level of consciousness at the [facility] and he was intubated. His chest x-ray has been clear and his ABGs have look good thought that he had a urinary tract infection with sepsis. 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 He has some been doing CPAP trials and once he is a little stronger will advance to a T-tube. This man needs some central venous line or PICC. Chest x-ray. Overpenetrated. No masses infiltrates or pulmonary edema Microbiology. Urine is positive for E. coli and a unidentified gram-positive cocci and also positive for yeast. Blood cultures grew Staphylococcus epidermidis which was methicillin-resistant. There were 2 positive blood ABGs. FiO2 40%. PH 7.355, PCO2 41.6, PO2 162 and bicarb 22.6. Lab. White count is down 9700 with 65 segs and 23 lymphs H&H 10.3/31.8. Electrolytes are normal. Creatinine is 0.8 BUN 17 11/21/2016. Today's chest x-ray is stable showing no infiltrates no heart failure no mass. Urine is growing E. coli and Enterococcus faecalis. I have reviewed the antibiotics and I have stopped ceftezole lung and started Fortaz 1 g IV piggyback every [address]. Patient is tolerated previous dose of cephalosporins without any problems but we will give a test dose since she has a history of being allergic to penicillin. Patient has been able to do 12 hours on CPAP ABGs on mechanical ventilation FiO2 40% shows a pH 7.37, PCO2 of 41.5, PO2 152 and a bicarb 23.3. Electrolytes are normal. Creatinine is 0.8 with a BUN is 16. CBC is stable. Labs been reviewed. Medicines been reviewed Physical exam. Vital signs. See below Neurologic. He is patient's arousable and can can can cooperate slightly Face. Symmetrical. No swelling of the lips or tongue Neck. Symmetrical no meningismus Chest. Clear Heart. No gallop Abdomen. Nondistended. Only rare bowel sounds were heard. Extremities. Nothing to suggest deep venous thrombophlebitis The remainder the physical exam is negative. Plan. 11/20/2069 1. Weaning protocol 2. Physical therapy protocol 3. Hope to go to a T-tube soon. 4. Patient could benefit from a PICC line or central venous line. 11/21/[address] of Cefzil when based on culture and sensitivities and best JUSTINO. Infectious disease to review. 2. Continue present regimen including weight weaning and physical therapy protocol Exam (Progress Note) - Constitutional Vitals: Period Temp Pulse Resp BP Sys/Gregorio Pulse Ox Last 24 Hr 97.2 F-97.9 F 74-110 9-26 83-173/47-87 97-100 Results - Labs CBC & BMP: 11/21/16 02:43 11/21/16 02:43
--- NOTE | 2016-11-21 12:55 | Internal Med Progress Note ---
Assessment and Plan (1) Altered mental status Status: Acute Current Visit: Yes Qualifiers: Altered mental status type: somnolence Qualified Code(s): R40.0 - Somnolence (2) Gram-positive bacteremia Status: Acute Current Visit: Yes (3) History of seizure Status: Chronic Current Visit: Yes (4) Respiratory arrest Status: Acute Current Visit: Yes (5) UTI (urinary tract infection) Status: Acute Current Visit: Yes (6) Coronary artery disease Status: Chronic Current Visit: No Qualifiers: Coronary Disease-Associated Artery/Lesion type: [place] artery [place] vs. transplanted heart: [place] heart (7) Diabetes mellitus Status: Chronic Current Visit: Yes Qualifiers: Diabetes mellitus type: type 2 Diabetes mellitus complication detail: with chronic kidney disease Diabetes mellitus halfway insulin use: with technician terminal and repeater use Chronic kidney disease stage: stage 3 (moderate) (8) Essential hypertension Status: Chronic Current Visit: Yes (9) Obstructive sleep apnea Status: Chronic Current Visit: Yes Internal Medicine - PN: Subj Interval history: This is a 75 year old male [facility] patient with history of HTN, SAIGE, seizure disorder, paroxysmal atrial fib, CAD, CABG, DM, dyslipidemia, gout, behavioral issues, stroke patient, who is in ICU on ventilator support for respiratory failure. He is improving and on CPAP trials today. ECHO shows normal LVEF and mild pulmonary hypertension, mild diastolic dysfunction. He has done well on CPAP trials today. Exam (Progress Note) - Constitutional Vitals: Period Temp Pulse Resp BP Sys/Gregorio Pulse Ox Last 24 Hr 97.2 F-97.9 F 74-110 9-26 83-173/47-87 97-100 Exam: General appearance: no acute distress - Respiratory Respiratory exam: Present: clear to auscultation bilaterally - Cardiovascular Cardiovascular exam: Present: regular rate and rhythm - GI/Abdominal GI/Abdominal exam: Present: normal bowel sounds, soft - Extremities Exam Extremities exam: Present: other (left hand contracture). Absent: edema - Neurological Exam Neurological exam: Present: other (on CPAP today) - Skin Skin exam: Present: warm, dry Results - Labs CBC & BMP: 11/21/16 02:43 11/21/16 02:43
[2016-11-21] MEDS: SKIN HEALING OINT (AQUAPHOR) 50 GM TUBE TOP PRN (13:24)
[2016-11-21] MEDS: PREGABALIN 75 MG CAPSULE PO SCH (21:40)
[2016-11-22] MEDS: ALBUTEROL/IPRATROPIUM 3 ML NEB RESP TX SCH ×4 (00:08→19:18)
[2016-11-22] MEDS: INSULIN REGULAR 100 UNIT/ML SUBCUT SCH ×4 (00:44→18:10)
[2016-11-22] MEDS: SODIUM CHLORIDE 0.45% 1,000 ML IV SCH ×3 (01:24→18:03)
[2016-11-22] MEDS: PHENYTOIN 100 MG/2 ML VIAL IV SCH ×3 (02:03→18:10)
[2016-11-22] MEDS: hydrALAZINE 20 MG/1 ML VIAL IV PRN ×2 (02:06→19:15)
[2016-11-22] MEDS: LORazepam 2 MG/1 ML VIAL IV PRN (02:34)
[2016-11-22 03:56] LABS: ABG Base Excess 0.7 MMOL/L (-2.5-2.5); ABG Oxygen Saturation 99.1 % (95-100); ABG PCO2 38.9 MM HG (35-48); ABG PH 7.417 (7.35-7.45); ABG TCO2 22.6 MMOL/L (23-27); Allen Test Positive; Pt O2 Delivery Device Ventilator
[2016-11-22 04:42] LABS: Basophils % 0.5 % (0.0-0.8); Eosinophils # 0.4 10*3/uL (0.0-0.87); Eosinophils % 5.2 % (0.00-10.9); Hematocrit 33.9 VOL% (42.0-52.0); Hemoglobin 11.2 GM/DL (14.0-18.0); Immature Granulocytes % 0.3 %; Immature Granulocytes Absolute 0.02 #; Lymphocytes # 1.5 10*3/uL (1.4-4.0); Lymphocytes % 20.3 % (21.2-54.2); Mean Corpuscular Hemoglobin 28 PG (27-34); Mean Corpuscular Volume 84.3 FL (87-102); Mean Platelet Volume 10.6 FL (9.6-12.0); Monocytes # 0.6 10*3/uL (0.11-0.8); Monocytes % 8.1 % (1.7-12.7); Neutrophils % 65.6 % (38.7-73.9); Platelet Count 251 T/CUMM (130-400); Red Blood Count 4.02 MC/CUMM (3.8-5.5); Red Cell Distribution Width 14.3 % (9.3-17.3); White Blood Count 7.5 T/CUMM (4-12)
[2016-11-22 04:51] LABS: INR 1.4
[2016-11-22 05:20] LABS: Calcium 8.1 MG/DL (8.5-10.1); Magnesium 1.9 MG/DL (1.8-2.4); Osmolality,Calculated 287.5 MOS/KG (273-304); Phosphorous 1.8 MG/DL (2.5-4.9); Prealbumin 20.2 MG/DL (20-40)
--- NOTE | 2016-11-22 07:24 | Pulmonology Progress Note ---
Pulmonary - PN: Subj Interval history: 75-year-old black male who lives in a fdc. He was brought in unresponsive. Has urinary tract infection. Previous stroke. Starting to wake up now. He does have a seizure disorder and his Dilantin level was 19. He is on the ventilator and his ABGs are improved. Chest x-ray is clear. Will progress with weaning today. 11/19/2016 patient did CPAP fairly well yesterday. This morning he is pretty drowsy. His propofol was turned off over 2 hours ago when he still drowsy. I will discontinue propofol. We will use as needed Ativan if he fights the ventilator at night. The main reason for his being on the ventilator is decreased level of consciousness. We need him to be much more alert in order to safely extubate. His lungs are clear on x-ray. ABGs look good. No reason not to extubate once his mental status improved. 11/22/2016 patient tolerating prolonged CPAP trials. Chest x-ray clear. ABGs look good. I am told that he is quite awake in the afternoons. He is sleepy in the mornings. I am going to stop his Lyrica. Recheck Dilantin level which was 16 on Tuesday. Will try him on a T-tube today and if he does okay get him extubated. Exam (Progress Note) - Constitutional Vitals: Period Temp Pulse Resp BP Sys/Gregorio Pulse Ox Last 24 Hr 97.4 F-98.4 F 79-111 8-26 103-197/54-92 100-100 Exam: Off sedation but poorly responsive. Vital signs normal. Pupils react to light. Arcus senilis. Orotracheal tube in place. Neck supple. Chest clear equal breath sounds. Heart normal rate rhythm no murmurs. Abdomen soft no masses. Bowel sounds present. Extremities no clubbing cyanosis trace of edema. Has left [id number] from previous stroke. Results - Labs CBC & BMP: 11/22/16 04:34 11/22/16 04:34 Lab Results: I have reviewed the past 24 hour labs - Diagnostic Findings Procedure: Chest x-ray: image reviewed by me (Chest x-ray is clear. ET tube good position.) Assessment and Plan (1) Acute respiratory failure Status: Acute Assessment and plan: We will adjust ventilator settings. Has a mild acidosis. There is no reported underlying chronic lung problems. He has been on the ventilator about 10 years ago however. Respiratory acidosis. 11/18/2016 improved. Will reduce PEEP and change to IMV. Begin weaning trials. 11/19/2016 tolerating CPAP. ABGs have looked good. We can extubate when mental status improves where he can defend his airway. Stopping propofol. I think it is hanging around a while on him this morning 11/22/2016 ABGs look good. Try him on T-tube. If mental status allows will extubate. Current Visit: Yes (2) Obstructive sleep apnea Status: Acute Assessment and plan: We will keep this in mind when we get to the point of extubation. Will need CPAP at that time and close watch of mental status. 11/19/2016 will need CPAP or BiPAP once he is extubated. Especially at bedtime 11/22/2016 will need BiPAP once extubated. Current Visit: No (3) Recurrent urinary tract infection Status: Acute Assessment and plan: Urinalysis certainly consistent with urinary tract infection. May have sepsis due to this. However there is no fever and his white blood count is normal. He does have elevated lactic acid level decreased level of consciousness and hypotension. 11/18/2016 no report yet on urine culture. Continuing empiric antibiotics. Renal function looks good with creatinine 1.2. 11/19/2016 has greater than 100,000 colonies of gram-negative rods on his urine. He is on empiric antibiotics. Check sensitivity when that is out. I think the urinary tract infection with sepsis is the main cause of his decreased level of consciousness. He has had a previous stroke with left quique-plegia. 11/22/2016 patient grew E. coli from urine. Antibiotics changed to Fortaz yesterday. 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 He also has some dementia. 11/22/2016 has left hemiplegia. Current Visit: No (5) Left hemiplegia Status: Inactive Assessment and plan: We will keep in mind when evaluating responsiveness. 11/18/2016 only moving right side when alert. 12/09/2016 again this is due to his previous stroke. Is able to move his right arm and try to pull his tube out when awake Current Visit: No (6) Coronary artery disease Status: Chronic Assessment and plan: Previous coronary stents and coronary bypass surgery. Cardiac enzymes are negative thus far. 11/18/2016 normal LV ejection fraction on echo. Has mild pulmonary hypertension. 11/19/2016 no signs of congestive heart failure or angina. Cardiac enzymes are normal Current Visit: No Qualifiers: Coronary Disease-Associated Artery/Lesion type: [place] artery [place] vs. transplanted heart: [place] heart (7) Seizure disorder Status: Acute Assessment and plan: Defer to neurology. 11/18/2016 has been seen by neurology. Dilantin level 19. No seizures. 11/19/2016 he is home seizure medications need to keep the levels in the therapeutic range. Could be sedated by them 11/22/2016 now on Dilantin 100 mg 3 times a day and his level was 16 day before yesterday. Recheck Dilantin level. Need to keep it covered for seizures but hopefully not drowsy from the Dilantin. Current Visit: No (8) Altered mental status Status: Acute Assessment and plan: Unresponsive but presently is on propofol 11/18/2016 I am told by nurses that patient is responsive when propofol is held. He is currently sedated. 11/19/2016 likely due to urinary tract infection with sepsis. Check blood levels of seizure medicines. 11/22/2016 UTI with sepsis should be controlled at this point. Hopefully he will be alert when no sedation given. He is getting intermittent Ativan. Current Visit: No
[2016-11-22] MEDS: HYDROCORTISONE 100 MG VIAL IV SCH ×2 (07:29→18:30)
--- NOTE | 2016-11-22 07:36 | XRay Report ---
XR chest 1V portable Indication: Shortness of breath Comparison: Chest x-ray 11/21/2016 Technique: Portable AP chest was performed. Findings: Multiple tubes and medical support devices appear stable. Lungs are clear for technique. Heart size is stable. Bones and soft tissues appear stable. Impression: 1. No adverse interval change in the chest. 11/22/2016 7:33 AM PROCEDURE INTERPRETED AT [facility] DEPARTMENT OF RADIOLOGY Final Report Signed by: Dr. Jesse Hawthorne
[2016-11-22 09:02] LABS: ABG Base Excess 0.4 MMOL/L (-2.5-2.5); ABG HCO3 24.8 MMOL/L (20-26); ABG Oxygen Saturation 98.8 % (95-100); ABG PCO2 43.4 MM HG (35-48); ABG PH 7.379 (7.35-7.45); ABG TCO2 23.5 MMOL/L (23-27); Allen Test Positive; Pt O2 Delivery Device Other
[2016-11-22] MEDS: SERTRALINE 50 MG TABLET PO SCH (09:28)
[2016-11-22] MEDS: ATENOLOL 25 MG TABLET PO SCH (09:28)
[2016-11-22] MEDS: amLODIPine 10 MG TABLET PO SCH (09:28)
[2016-11-22] MEDS: VANCOMYCIN INJ 1,000 MG in SODIUM CHLORIDE 0.9% 250 ML IV SCH (09:29)
[2016-11-22] MEDS: hydrALAZINE 25 MG TABLET PO SCH ×3 (09:29→20:20)
--- NOTE | 2016-11-22 10:21 | Infectious Disease Progress ---
Assessment and Plan (1) Gram-positive bacteremia Status: Acute Assessment and plan: MRSE in 2 of 2 sets of blood cultures. There is slight variation in the susceptibility profile of the 2 isolates however I am going to treat as true infection given overall clinical picture - comorbids and presentation. Recommendations: 1. Continue vancomycin; plan is for 2 weeks of therapy from date of negative blood cultures so until December 04 assuming cultures from November 20 remain negative 2. Monitor renal function closely and vancomycin, as well as vancomycin trough levels. Goal vancomycin trough levels 15-20. 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 coli was cultured. Yeast was also cultured last likely colonization especially since he has a suprapubic catheter. Few colonies of Enterococcus faecalis on the second urine culture but again this would be a colonizer and would not need to be treated. Recommendations: I had put patient on cefazolin but somehow is on ceftazidime for unclear reasons. No other organisms isolated apart from the E. coli somewhat but the patient back on cefazolin. Patient has not had an allergic reaction to the cephalosporin. Current Visit: Yes (7) Acute renal insufficiency Status: Acute Assessment and plan: This was present on admission but has now resolved. We will continue to monitor renal function closely and vancomycin. Current Visit: Yes Infectious Disease - PN: Subj Interval history: Patient had a relatively uneventful weekend. He has been doing okay with vent weaning, is on T-tube today with the view to being extubated later today hopefully. No fever at all over the weekend. He tends to be mostly drowsy and does not follow commands. Infectious Disease Exam (PN) - Constitutional Vitals: Temp Pulse Resp BP Pulse Ox 98.3 F 93 H 14 117/55 100 11/22/16 04:00 11/22/16 08:25 11/22/16 08:51 11/22/16 08:25 11/22/16 08:25 General appearance: no acute distress Exam: General appearance: Poorly responsive but comfortable on T-tube - Eye Eye exam: Present: EOMI. no icterus Pupils: Present: MAYA - ENT ENT exam: Drooling a lot - Respiratory Respiratory exam: vesicular BS, no crepitations or wheezes - Cardiovascular Cardiovascular exam: regular rate and rhythm, no murmurs - GI/Abdominal GI/Abdominal exam: normal bowel sounds, soft, non-tender - Extremities Exam Extremities exam: no edema - Skin Skin exam: no rash Results - Labs CBC & BMP: 11/22/16 04:34 11/22/16 04:34 Lab Results: I have reviewed the past 24 hour labs (Repeat blood cultures negative to date, MRSE and initial blood cultures)
[2016-11-22 11:40] LABS: Allen Test Positive
[2016-11-22 11:43] LABS: ABG HCO3 25.3 MMOL/L (20-26); ABG Oxygen Saturation 99.1 % (95-100); ABG PCO2 44.3 MM HG (35-48); ABG PH 7.382 (7.35-7.45); ABG TCO2 23.8 MMOL/L (23-27)
--- NOTE | 2016-11-22 16:30 | Physician Query Form ---
CLICK EDIT DOCUMENT TO SELECT QUERY ANSWER --> OK --> SIGN Denise Michael RN Clinical Hitcher W) [phone] (f) [phone] [email or web address] PROVIDERS: Make your selection(s) from the choices in EACH section by typing an "x" and enter comments in the comment section. Please use your independent medical judgment in providing your response. This request does not imply that any particular answer is desired or expected. CLINICAL INDICATORS: (Providers should not edit this section) Based on documentation of "acute renal insufficiency", creatinine on admission of 1.80 with a GFR of 56 and decreased to 1.00. Pt. treated with IV fluids of 1/ 2 Normal Saline. Clarify which of the following most accurately represents the patient's renal status: ( ) Acute kidney injury (non-traumatic) ( X) Acute renal failure ( ) Acute renal failure with underlying Chronic Kidney Disease (CKD) - please provide stage below ( ) CKD - please provide stage below ( ) Other, please specify: ( ) Clinically unable to determine Chronic Kidney Disease Stages Source: National Kidney Disease Foundation ( ) Stage I (eGFR > or = 90) ( ) Stage II (eGFR 60 - 89) ( ) Stage III (eGFR 30 - 59) ( ) Stage IV (eGFR 15 - 29) ( ) Stage V (eGFR < 15 or dialysis) COMMENTS: PLEASE ALSO DOCUMENT RESPONSE IN PROGRESS NOTES AND/OR DISCHARGE SUMMARY Use of terms such as suspected, likely, or probable (associated with a specific diagnosis that is being evaluated, monitored, or treated as if it exists) are acceptable and can be restated in the discharge summary if not ruled out. MTDD
[2016-11-22] MEDS: OXYMETAZOLINE 0.05% NASAL SPRAY 15 ML BOTTLE BOTH NARES PRN ×2 (16:45→18:13)
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
--- NOTE | 2016-11-22 19:43 | Internal Med Progress Note ---
Assessment and Plan (1) Altered mental status Status: Acute Current Visit: Yes Qualifiers: Altered mental status type: somnolence Qualified Code(s): R40.0 - Somnolence (2) Gram-positive bacteremia Status: Acute Current Visit: Yes (3) History of seizure Status: Chronic Current Visit: Yes (4) Respiratory arrest Status: Acute Current Visit: Yes (5) UTI (urinary tract infection) Status: Acute Current Visit: Yes (6) Coronary artery disease Status: Chronic Current Visit: No Qualifiers: Coronary Disease-Associated Artery/Lesion type: [place] artery [place] vs. 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 Mcdowell, with history of HTN, SAIGE, seizure disorder, paroxysmal atrial fib, CAD, CABG, DM, dyslipidemia, gout, behavioral issues, stroke patient , who is in ICU on ventilator support for respiratory failure. He is improving and on CPAP trials today. ECHO shows normal LVEF and mild pulmonary hypertension, mild diastolic dysfunction. He is a clinic patient of Dr. Tyson and on his service here in hospital. He has done well on CPAP trials. He is now extubated. He has NG tube placement. Along with his stroke and left sided weakness, he also has dementia. He has alternating episodes of somnolence that is not a new finding. Discussed with shelter Nurse. Also , he has history of behavioral disturbances. Exam (Progress Note) - Constitutional Vitals: Period Temp Pulse Resp BP Sys/Gregorio Pulse Ox Last 24 Hr 97.5 F-98.8 F 85-111 8-22 114-193/55-99 98-100 Exam: General appearance: no acute distress - Respiratory Respiratory exam: Present: clear to auscultation bilaterally - Cardiovascular Cardiovascular exam: Present: regular rate and rhythm - GI/Abdominal GI/Abdominal exam: Present: normal bowel sounds, soft - Extremities Exam Extremities exam: Present: other (left hand contracture). Absent: edema - Neurological Exam Neurological exam: Present: still somnolent - Skin Skin exam: Present: warm, dry Results - Labs CBC & BMP: 11/22/16 04:34 11/22/16 04:34
[2016-11-22] MEDS ORDERED: DEXTROSE 50% 25 GM/50 ML VIAL IV PRN (21:20)
[2016-11-22] MEDS ORDERED: GLUCAGON 1 MG VIAL IM PRN (21:20)
--- NOTE | 2016-11-22 21:25 | Event Note ---
Had been notified by Nurse late afternoon that patient pulled out NG tube, and developed nose bleed while a new NG tube was being attempted. Dr. Dixon was consulted to help with nosebleed. The patient spiked blood pressure during the event. He is doing better as of later this evening.
[2016-11-22] MEDS ORDERED: INSULIN GLARGINE 100 UNIT/ML SUBCUT SCH (21:30)
[2016-11-23] MEDS: INSULIN REGULAR 100 UNIT/ML SUBCUT SCH ×5 (00:01→23:30)
[2016-11-23] MEDS: ALBUTEROL/IPRATROPIUM 3 ML NEB RESP TX SCH ×4 (00:26→19:40)
[2016-11-23] MEDS: SODIUM CHLORIDE 0.45% 1,000 ML IV SCH ×3 (02:15→22:50)
[2016-11-23] MEDS: PHENYTOIN 100 MG/2 ML VIAL IV SCH ×3 (02:17→18:15)
[2016-11-23] MEDS: VANCOMYCIN INJ 1,000 MG in SODIUM CHLORIDE 0.9% 250 ML IV SCH ×2 (03:30→20:30)
[2016-11-23 06:44] LABS: Basophils # 0.1 10*3/uL (0.0-0.2); Basophils % 0.7 % (0.0-0.8); Eosinophils # 0.6 10*3/uL (0.0-0.87); Eosinophils % 6.3 % (0.00-10.9); Hematocrit 32.3 VOL% (42.0-52.0); Hemoglobin 10.6 GM/DL (14.0-18.0); Immature Granulocytes % 0.3 %; Immature Granulocytes Absolute 0.03 #; Lymphocytes # 1.7 10*3/uL (1.4-4.0); Lymphocytes % 18.8 % (21.2-54.2); Mean Corpuscular HGB Conc 32.8 GM/DL (32-36); Mean Corpuscular Hemoglobin 28 PG (27-34); Mean Corpuscular Volume 85.2 FL (87-102); Mean Platelet Volume 9.4 FL (9.6-12.0); Monocytes # 0.9 10*3/uL (0.11-0.8); Monocytes % 10.4 % (1.7-12.7); Neutrophils # 5.8 10*3/uL (1.4-7.4); Neutrophils % 63.5 % (38.7-73.9); Platelet Count 223 T/CUMM (130-400); Red Blood Count 3.79 MC/CUMM (3.8-5.5); Red Cell Distribution Width 14.4 % (9.3-17.3); White Blood Count 9.1 T/CUMM (4-12)
[2016-11-23 07:21] LABS: Calcium 8.1 MG/DL (8.5-10.1); Osmolality,Calculated 288.3 MOS/KG (273-304); Potassium 3.9 MMOL/L (3.5-5.1)
--- NOTE | 2016-11-23 07:29 | Pulmonology Progress Note ---
Pulmonary - PN: Subj Interval history: 75-year-old black male who lives in a intermediate. He was brought in unresponsive. Has urinary tract infection. Previous stroke. Starting to wake up now. He does have a seizure disorder and his Dilantin level was 19. He is on the ventilator and his ABGs are improved. Chest x-ray is clear. Will progress with weaning today. 11/19/2016 patient did CPAP fairly well yesterday. This morning he is pretty drowsy. His propofol was turned off over 2 hours ago when he still drowsy. I will discontinue propofol. We will use as needed Ativan if he fights the ventilator at night. The main reason for his being on the ventilator is decreased level of consciousness. We need him to be much more alert in order to safely extubate. His lungs are clear on x-ray. ABGs look good. No reason not to extubate once his mental status improved. 11/22/2016 patient tolerating prolonged CPAP trials. Chest x-ray clear. ABGs look good. I am told that he is quite awake in the afternoons. He is sleepy in the mornings. I am going to stop his Lyrica. Recheck Dilantin level which was 16 on Tuesday. Will try him on a T-tube today and if he does okay get him extubated. 11/23/2016 patient was extubated without difficulty. He is responsive. He is a little sleepy. We used CPAP on him overnight. He had a right nosebleed last night after difficulty getting an NG tube back down. Dr. Dixon has packed his right naris. At present his oxygen saturation is in the mid 90s on room air. Hopefully we can just keep him on room air. If he needs oxygen we can use a nasal cup which should not aggravate his nose. Exam (Progress Note) - Constitutional Vitals: Period Temp Pulse Resp BP Sys/Gregorio Pulse Ox Last 24 Hr 97.5 F-99.2 F 88-108 8-18 114-193/55-99 97-100 General appearance: no severe distress Exam: Patient is sleepy but he is responsive. Now on room air. Vital signs normal. Pupils react to light. Arcus senilis. Neck supple. Chest clear equal breath sounds. Heart normal rate rhythm no murmurs. Abdomen soft no masses. Bowel sounds present. Extremities no clubbing cyanosis trace of edema. Has left quique -para-cysts from previous stroke. Results - Labs CBC & BMP: 11/23/16 06:38 11/23/16 06:38 Lab Results: I have reviewed the past 24 hour labs Assessment and Plan (1) Acute respiratory failure Status: Acute Assessment and plan: We will adjust ventilator settings. Has a mild acidosis. There is no reported underlying chronic lung problems. He has been on the ventilator about 10 years ago however. Respiratory acidosis. 11/18/2016 improved. Will reduce PEEP and change to IMV. Begin weaning trials. 11/19/2016 tolerating CPAP. ABGs have looked good. We can extubate when mental status improves where he can defend his airway. Stopping propofol. I think it is hanging around a while on him this morning 11/22/2016 ABGs look good. Try him on T-tube. If mental status allows will extubate. 11/23/2016 patient over the acute respiratory failure. Had a clear chest x-ray yesterday. Did well with extubation. It appears that he does have obstructive sleep apnea. We will try to keep his O2 sats in the low 90s during the day and use BiPAP at night. Current Visit: Yes (2) Obstructive sleep apnea Status: Acute Assessment and plan: We will keep this in mind when we get to the point of extubation. Will need CPAP at that time and close watch of mental status. 11/19/2016 will need CPAP or BiPAP once he is extubated. Especially at bedtime 11/22/2016 will need BiPAP once extubated. 11/23/2016 using BiPAP overnight Current Visit: No (3) Recurrent urinary tract infection Status: Acute Assessment and plan: Urinalysis certainly consistent with urinary tract infection. May have sepsis due to this. However there is no fever and his white blood count is normal. He does have elevated lactic acid level decreased level of consciousness and hypotension. 11/18/2016 no report yet on urine culture. Continuing empiric antibiotics. Renal function looks good with creatinine 1.2. 11/19/2016 has greater than 100,000 colonies of gram-negative rods on his urine. He is on empiric antibiotics. Check sensitivity when that is out. I think the urinary tract infection with sepsis is the main cause of his decreased level of consciousness. He has had a previous stroke with left quique-plegia. 11/22/2016 patient grew E. coli from urine. Antibiotics changed to [place] yesterday. 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 He also has some dementia. 11/22/2016 has left hemiplegia. 11/23/2016 has left hemiplegia but is responsive and able to say a few words Current Visit: No (5) Left hemiplegia Status: Inactive Assessment and plan: We will keep in mind when evaluating responsiveness. 11/18/2016 only moving right side when alert. 12/09/2016 again this is due to his previous stroke. Is able to move his right arm and try to pull his tube out when awake Current Visit: No (6) Coronary artery disease Status: Chronic Assessment and plan: Previous coronary stents and coronary bypass surgery. Cardiac enzymes are negative thus far. 11/18/2016 normal LV ejection fraction on echo. Has mild pulmonary hypertension. 11/19/2016 no signs of congestive heart failure or angina. Cardiac enzymes are normal 11/23/2016 no chest pain Current Visit: No Qualifiers: Coronary Disease-Associated Artery/Lesion type: [place] artery [place] vs. transplanted heart: [place] heart (7) Seizure disorder Status: Acute Assessment and plan: Defer to neurology. 11/18/2016 has been seen by neurology. Dilantin level 19. No seizures. 11/19/2016 he is home seizure medications need to keep the levels in the therapeutic range. Could be sedated by them 11/22/2016 now on Dilantin 100 mg 3 times a day and his level was 16 day before yesterday. Recheck Dilantin level. Need to keep it covered for seizures but hopefully not drowsy from the Dilantin. 11/23/16 continuing seizure medications. Dilantin level was 14 yesterday this is good Current Visit: No (8) Altered mental status Status: Acute Assessment and plan: Unresponsive but presently is on propofol 11/18/2016 I am told by nurses that patient is responsive when propofol is held. He is currently sedated. 11/19/2016 likely due to urinary tract infection with sepsis. Check blood levels of seizure medicines. 11/22/2016 UTI with sepsis should be controlled at this point. Hopefully he will be alert when no sedation given. He is getting intermittent Ativan. 11/23/2016 he is more alert. Cannot give any sedation. Current Visit: No
[2016-11-23] MEDS: HYDROCORTISONE 100 MG VIAL IV SCH ×2 (08:34→18:38)
[2016-11-23] MEDS: INSULIN GLARGINE 100 UNIT/ML SUBCUT SCH (08:35)
[2016-11-23] MEDS: amLODIPine 10 MG TABLET PO SCH (08:40)
[2016-11-23] MEDS: ATENOLOL 25 MG TABLET PO SCH (08:44)
[2016-11-23] MEDS: SERTRALINE 50 MG TABLET PO SCH (08:47)
--- NOTE | 2016-11-23 10:14 | Internal Med Progress Note ---
Assessment and Plan (1) Acute respiratory failure Status: Acute Assessment and plan: Resolved, patient is extubated on oxygen doing well, on oxygen, pulse ox in 90s, follow childcare provider recommendations. We will continue care in ICU for today, swallow evaluation today, continue IV fluids. 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 Tyson, Patient is seen and examined in the ICU, patient is more awake than yesterday, Follows simple commands, speech is incomprehensible. Patient has pulled out the NG tube yesterday, had an episode of nasal bleed. Presently no NG tube in place, Exam (Progress Note) - Constitutional Vitals: Period Temp Pulse Resp BP Sys/Gregorio Pulse Ox Last 24 Hr 97.5 F-99.2 F 88-106 10-17 114-193/64-99 97-100 Exam: GENERAL APPEARANCE: Awake, follows simple commands when lying in the bed. HEENT: Dried nasal secretions at the external nares. EYES: extraocular movement intact (EOMI), HEART: regular rate and rhythm, no murmurs, rubs, gallops. LUNGS: clear to auscultation bilaterally, . ABDOMEN: soft, nontender, , bowel sounds present. EXTREMITIES: no edema. NEUROLOGIC: speech unclear, Results - Labs CBC & BMP: 11/23/16 06:38 11/23/16 06:38 Lab Results: I have reviewed the past 24 hour labs
[2016-11-24] MEDS: ALBUTEROL/IPRATROPIUM 3 ML NEB RESP TX SCH ×4 (00:48→19:01)
[2016-11-24] MEDS: PHENYTOIN 100 MG/2 ML VIAL IV SCH ×3 (01:25→17:43)
[2016-11-24] MEDS: hydrALAZINE 20 MG/1 ML VIAL IV PRN (01:44)
[2016-11-24] MEDS: INSULIN REGULAR 100 UNIT/ML SUBCUT SCH ×3 (06:33→18:07)
[2016-11-24] MEDS: HYDROCORTISONE 100 MG VIAL IV SCH ×2 (06:35→19:07)
--- NOTE | 2016-11-24 06:52 | Pulmonology Progress Note ---
Pulmonary - PN: Subj Interval history: 75-year-old black male who lives in a shelter. He was brought in unresponsive. Has urinary tract infection. Previous stroke. Starting to wake up now. He does have a seizure disorder and his Dilantin level was 19. He is on the ventilator and his ABGs are improved. Chest x-ray is clear. Will progress with weaning today. 11/19/2016 patient did CPAP fairly well yesterday. This morning he is pretty drowsy. His propofol was turned off over 2 hours ago when he still drowsy. I will discontinue propofol. We will use as needed Ativan if he fights the ventilator at night. The main reason for his being on the ventilator is decreased level of consciousness. We need him to be much more alert in order to safely extubate. His lungs are clear on x-ray. ABGs look good. No reason not to extubate once his mental status improved. 11/22/2016 patient tolerating prolonged CPAP trials. Chest x-ray clear. ABGs look good. I am told that he is quite awake in the afternoons. He is sleepy in the mornings. I am going to stop his Lyrica. Recheck Dilantin level which was 16 on Tuesday. Will try him on a T-tube today and if he does okay get him extubated. 11/23/2016 patient was extubated without difficulty. He is responsive. He is a little sleepy. We used CPAP on him overnight. He had a right nosebleed last night after difficulty getting an NG tube back down. Dr. Dixon has packed his right naris. At present his oxygen saturation is in the mid 90s on room air. Hopefully we can just keep him on room air. If he needs oxygen we can use a nasal cup which should not aggravate his nose. 11/24/2016 patient has done well overnight postextubation. He was on BiPAP for a couple of hours during the night but did not tolerate well. His room air oxygen saturation is now 98-99% so we will leave oxygen off. Will get speech therapy to evaluate swallowing. Patient was on a pured diet prior to coming into the hospital. Exam (Progress Note) - Constitutional Vitals: Period Temp Pulse Resp BP Sys/Gregorio Pulse Ox Last 24 Hr 97.7 F-98.8 F 85-99 10- 122-192/53-97 97-100 Exam: Patient is more alert and he is responsive. Now on room air. Vital signs normal. Pupils react to light. Arcus senilis. Neck supple. Chest clear equal breath sounds. Heart normal rate rhythm no murmurs. Abdomen soft no masses. Bowel sounds present. Extremities no clubbing cyanosis trace of edema. Has left [id number] from previous stroke. Results - Labs CBC & BMP: 11/23/16 06:38 11/23/16 06:38 Lab Results: I have reviewed the past 24 hour labs Assessment and Plan (1) Acute respiratory failure Status: Acute Assessment and plan: We will adjust ventilator settings. Has a mild acidosis. There is no reported underlying chronic lung problems. He has been on the ventilator about 10 years ago however. Respiratory acidosis. 11/18/2016 improved. Will reduce PEEP and change to IMV. Begin weaning trials. 11/19/2016 tolerating CPAP. ABGs have looked good. We can extubate when mental status improves where he can defend his airway. Stopping propofol. I think it is hanging around a while on him this morning 11/22/2016 ABGs look good. Try him on T-tube. If mental status allows will extubate. 11/23/2016 patient over the acute respiratory failure. Had a clear chest x-ray yesterday. Did well with extubation. It appears that he does have obstructive sleep apnea. We will try to keep his O2 sats in the low 90s during the day and use BiPAP at night. 11/24/2016 patient tolerating room air well. O2 sat high 90s. Did not tolerate BiPAP. We will leave that off tonight. Current Visit: Yes (2) Obstructive sleep apnea Status: Acute Assessment and plan: We will keep this in mind when we get to the point of extubation. Will need CPAP at that time and close watch of mental status. 11/19/2016 will need CPAP or BiPAP once he is extubated. Especially at bedtime 11/22/2016 will need BiPAP once extubated. 11/23/2016 using BiPAP overnight 11/24/2016 he did not tolerate the BiPAP very well. Will need sleep evaluation prior to getting out of hospital Current Visit: No (3) Recurrent urinary tract infection Status: Acute Assessment and plan: Urinalysis certainly consistent with urinary tract infection. May have sepsis due to this. However there is no fever and his white blood count is normal. He does have elevated lactic acid level decreased level of consciousness and hypotension. 11/18/2016 no report yet on urine culture. Continuing empiric antibiotics. Renal function looks good with creatinine 1.2. 11/19/2016 has greater than 100,000 colonies of gram-negative rods on his urine. He is on empiric antibiotics. Check sensitivity when that is out. I think the urinary tract infection with sepsis is the main cause of his decreased level of consciousness. He has had a previous stroke with left quique-plegia. 11/22/2016 patient grew E. coli from urine. Antibiotics changed to [place] yesterday. 11/24/2016 UTI with E. coli. Covered with appropriate antibiotics. Likely this was the cause of decreased mental status. 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 He also has some dementia. 11/22/2016 has left hemiplegia. 11/23/2016 has left hemiplegia but is responsive and able to say a few words 11/24/2016 has left hemiplegia. Able to talk but his speech is slow and scanning. Current Visit: No (5) Left hemiplegia Status: Inactive Assessment and plan: We will keep in mind when evaluating responsiveness. 11/18/2016 only moving right side when alert. 11/22/2016 again this is due to his previous stroke. Is able to move his right arm and try to pull his tube out when awake Current Visit: No (6) Coronary artery disease Status: Chronic Assessment and plan: Previous coronary stents and coronary bypass surgery. Cardiac enzymes are negative thus far. 11/18/2016 normal LV ejection fraction on echo. Has mild pulmonary hypertension. 11/19/2016 no signs of congestive heart failure or angina. Cardiac enzymes are normal 11/23/2016 no chest pain Current Visit: No Qualifiers: Coronary Disease-Associated Artery/Lesion type: [place] artery [place] vs. transplanted heart: [place] heart (7) Seizure disorder Status: Acute Assessment and plan: Defer to neurology. 11/18/2016 has been seen by neurology. Dilantin level 19. No seizures. 11/19/2016 he is home seizure medications need to keep the levels in the therapeutic range. Could be sedated by them 11/22/2016 now on Dilantin 100 mg 3 times a day and his level was 16 day before yesterday. Recheck Dilantin level. Need to keep it covered for seizures but hopefully not drowsy from the Dilantin. 11/23/16 continuing seizure medications. Dilantin level was 14 yesterday this is good 11/24/2016 no further seizures. We have Dilantin at a lower dose now. Can change to oral once we get him eating Current Visit: No (8) Altered mental status Status: Acute Assessment and plan: Unresponsive but presently is on propofol 11/18/2016 I am told by nurses that patient is responsive when propofol is held. He is currently sedated. 11/19/2016 likely due to urinary tract infection with sepsis. Check blood levels of seizure medicines. 11/22/2016 UTI with sepsis should be controlled at this point. Hopefully he will be alert when no sedation given. He is getting intermittent Ativan. 11/23/2016 he is more alert. Cannot give any sedation. 11/24/2016 on admission he had a markedly decreased level of consciousness. He is now able to interact and talk a little bit. Not sure how alert he was in his baseline status. Current Visit: No
[2016-11-24] MEDS: INSULIN GLARGINE 100 UNIT/ML SUBCUT SCH (08:33)
[2016-11-24] MEDS: ATENOLOL 25 MG TABLET PO SCH (08:34)
[2016-11-24] MEDS: SERTRALINE 50 MG TABLET PO SCH (08:34)
[2016-11-24] MEDS: amLODIPine 10 MG TABLET PO SCH (08:34)
--- NOTE | 2016-11-24 09:02 | Internal Med Progress Note ---
Assessment and Plan (1) Acute respiratory failure Status: Resolved Assessment and plan: Resolved, patient is extubated on oxygen doing well, on oxygen, pulse ox in 90s, follow wire mill rover recommendations. We will continue care in ICU for today, swallow evaluation today, continue IV fluids. * Altered mental status, mildly improved, * Gram-positive bacteremia, continue antibiotics * History of seizures: Stable, on antiepileptics * Diabetes mellitus, continue meds, sliding scale insulin, Lantus * hypertension: Continue antihypertensives Current Visit: Yes (2) Respiratory arrest Status: Acute Current Visit: Yes (3) UTI (urinary tract infection) Status: Acute Current Visit: Yes (4) Diabetes mellitus Status: Chronic Current Visit: Yes Qualifiers: Diabetes mellitus type: type 2 Diabetes mellitus complication detail: with chronic kidney disease Diabetes mellitus detention insulin use: with roasterman use Chronic kidney disease stage: stage 3 (moderate) (5) Essential hypertension Status: Chronic Current Visit: Yes (6) Obstructive sleep apnea Status: Chronic Current Visit: Yes (7) Altered mental status Status: Acute Current Visit: No Internal Medicine - PN: Subj Interval history: PCP Dr. Tyson, Patient is seen and examined in the ICU, patient is more awake than yesterday, Follows simple commands, speech is incomprehensible. able to swallow clears, as per swallow eval , advised more clears no overnight events reported by the nurse Exam (Progress Note) - Constitutional Vitals: Period Temp Pulse Resp BP Sys/Gregorio Pulse Ox Last 24 Hr 97.8 F-98.8 F 85-102 10-25 122-192/53-97 97-100 Exam: GENERAL APPEARANCE: Awake, follows simple commands when lying in the bed. HEENT: Dried nasal secretions at the external nares. EYES: extraocular movement intact (EOMI), HEART: regular rate and rhythm, no murmurs, rubs, gallops. LUNGS: clear to auscultation bilaterally, . ABDOMEN: soft, nontender, , bowel sounds present. EXTREMITIES: no edema. NEUROLOGIC: speech unclear, Results - Labs CBC & BMP: 11/23/16 06:38 11/23/16 06:38 Lab Results: I have reviewed the past 24 hour labs
--- NOTE | 2016-11-24 10:42 | Infectious Disease Progress ---
Assessment and Plan (1) Gram-positive bacteremia Status: Acute Assessment and plan: JOHN septicemia Recommendations: Continue vancomycin; trough was a bit high yesterday and dose had been decreased. Follow-up repeat trough level tomorrow. Plan is for 2 weeks of therapy from date of negative blood cultures so until December 04 assuming cultures from November 20 remain negative. Current Visit: Yes (2) Acute respiratory failure Status: Acute Current Visit: Yes (3) Altered mental status Status: Acute Current Visit: Yes Qualifiers: Altered mental status type: somnolence Qualified Code(s): R40.0 - Somnolence (4) Diabetes mellitus Status: Chronic Current Visit: Yes Qualifiers: Diabetes mellitus type: type 2 Diabetes mellitus complication detail: with chronic kidney disease Diabetes mellitus usp insulin use: with buttermaker helper use Chronic kidney disease stage: stage 3 (moderate) (5) Essential hypertension Status: Chronic Current Visit: Yes (6) UTI (urinary tract infection) Status: Acute Assessment and plan: Patient has E. coli UTI and has been on cefazolin without any suggestion of allergic reaction. Continue this antibiotic for little longer. Current Visit: Yes (7) Acute renal insufficiency Status: Acute Assessment and plan: Renal function remains normal on vancomycin. Continue to monitor. Current Visit: Yes Infectious Disease - PN: Subj Interval history: The patient remains off the vent and has been comfortable. He tells me he is doing okay today. He has not been febrile. Tolerating antibiotic without nausea vomiting or diarrhea. Infectious Disease Exam (PN) - Constitutional Vitals: Temp Pulse Resp BP Pulse Ox 98.8 F 103 H 16 149/78 100 11/24/16 04:00 11/24/16 07:15 11/24/16 07:15 11/24/16 07:00 11/24/16 07:15 General appearance: no severe distress Exam: General appearance: Alert and comfortable - Eye Eye exam: Present: EOMI. no icterus Pupils: Present: MAYA - ENT ENT exam: No oral exudates - Respiratory Respiratory exam: vesicular BS, no crepitations or wheezes - Cardiovascular Cardiovascular exam: regular rate and rhythm, no murmurs - GI/Abdominal GI/Abdominal exam: normal bowel sounds, soft, non-tender - Extremities Exam Extremities exam: no edema - Skin Skin exam: no rash Results - Labs CBC & BMP: 11/23/16 06:38 11/23/16 06:38 Lab Results: I have reviewed the past 24 hour labs (Repeat blood cultures negative at day 3)
[2016-11-24] MEDS: SODIUM CHLORIDE 0.45% 1,000 ML IV SCH (13:27)
--- NOTE | 2016-11-24 14:06 | Ultrasound Report ---
History: Right arm pain and swelling Date: 11/24/2016 Study: Right upper extremity color-flow venous Doppler study Comparison exam: No previous similar Color Doppler, wave form analysis, and compression analysis of the deep veins of the right upper extremity from the internal jugular and subclavian vein level to the wrist level was performed. There is thrombosis of the cephalic vein throughout its length. The deep veins, however, are patent without deep venous thrombosis. Preliminary verbal report was given to Emma RN at 1:52 PM. Waveform analysis is unremarkable. Ultrasound images were captured and archived Impression: Right cephalic vein thrombosis. The deep veins remain patent without DVT PROCEDURE INTERPRETED AT [facility] DEPARTMENT OF RADIOLOGY Final Report Signed by: Dr. Calli Waggoner
--- NOTE | 2016-11-24 16:13 | Operative Note ---
Date of procedure: 11/24/16 Pre-op diagnosis: No IV access, bacteremia Post-op diagnosis: same Procedure: Procedure performed: Placement of right internal jugular non-tunneled triple lumen catheter Procedure in detail: After informed consent was obtained, the patient was laid supine in the ICU bed and placed in slight Trendelenburg position. The right neck was prepped and draped in usual sterile fashion. Ultrasound brought after a sterile sleeve covering ultrasound the right neck revealed a patent compressible right internal jugular vein. After procedural pause local anesthetic infiltrated in the skin and subcutaneous tissue in the right internal jugular vein was then accessed using an 18-gauge Seldinger needle under ultrasound guidance on the first attempt. There was return of nonpulsatile dark red blood. Guidewire inserted without resistance. Guidewire was seen to be coursing in the visualized portion of the internal jugular vein on ultrasound. Next a small incision was made around the guidewire and the tract was dilated. A large bore triple-lumen catheter was then advanced over the guidewire using Seldinger technique. The guidewire was removed leaving the catheter in place. All ports withdrew and flushed easily and were locked with heparinized saline. The catheter was secured in place with 2-0 silk suture. Sterile dressings applied. Patient tolerated the procedure well. Anesthesia: local Surgeon / Physician: Lyndon Doran Estimated blood loss: other (Less than 10 cc) Specimens: none sent Condition: stable Disposition: PACU Results - Labs CBC & BMP: 11/23/16 06:38 11/23/16 06:38 Discharge Plan - Discharge Medications No Action Allopurinol 450 mg PO DAILY Omeprazole 1 tablet PO DAILY Furosemide Tab [Lasix Tab] 60 mg PO DAILY Sertraline HCl 100 mg PO DAILY Amlodipine Besylate 10 mg PO DAILY Lisinopril [Prinivil] 20 mg PO BID Insulin Aspart Prot/Asp 70/30 [NovoLOG Mix 70/30] 74 unit SUBCUT TIDAC HYDROcodone/ACETAMIN 7.5-325 [[place] 7.5-325] 7.5 mg PO Q6HR PRN PRN Reason: Pain Potassium Chloride [Klor-Con 10] 10 meq PO TID Lactulose 30 ml PO BID Aspirin Chew Tab 81 mg PO DAILY #100 tablet Warfarin [Coumadin] 5 mg PO DAILY Melatonin/Pyridoxine HCl (B6) [Melatonin 3 mg Tablet] 9 mg PO BEDTIME Atenolol 25 mg PO DAILY Phenytoin ER Cap [Dilantin Cap] 200 mg PO BID #120 capsule Pregabalin [Lyrica] 150 mg PO BEDTIME #30 capsule LORazepam INJ [Ativan Inj] 2 mg IM TID PRN PRN Reason: Agitation OLANZapine [Olanzapine] 5 mg PO BID Polyethylene Glycol Powder [Miralax] 1 packet PO DAILY - Follow Up or Referral - Forms/Instructions
--- NOTE | 2016-11-24 16:33 | XRay Report ---
History: Line placement Date: 11/24/2016 Study: Chest x-ray AP portable Comparison exam: November 22, 2016 The endotracheal and nasogastric tubes have been removed. The right IJ multilumen central venous line is well positioned with its tip at the atrial caval junction. There is no pneumothorax. There is mild cardiomegaly. The mediastinal contours are stable. The pulmonary vasculature is not engorged. The lungs and pleural spaces are clear. Osseous structures are unchanged. Impression: No evidence of a pneumothorax following central line placement PROCEDURE INTERPRETED AT [facility] DEPARTMENT OF RADIOLOGY Final Report Signed by: Dr. Calli Waggoner
--- NOTE | 2016-11-24 17:07 | Event Note ---
Got paged by the nurse around 3.00pm today. Pt has been hurting at rt UE, the IV line taken out, noticed swollen warm UE , is a hard stick, US UE ordered showed:Right cephalic vein thrombosis. The deep veins remain patent without DVT, PLAN: Will consult IR and Sx for IV access, start full dose LOVENOX, start coumadin to get targeted INR to 2-3 will get labs now/AM will holdoff transfer to floor today.
[2016-11-24] MEDS: VANCOMYCIN INJ 1,000 MG in SODIUM CHLORIDE 0.9% 250 ML IV SCH (17:43)
[2016-11-24] MEDS: WARFARIN 5 MG TABLET PO SCH (17:43)
[2016-11-24] MEDS: ENOXAPARIN 120 MG/0.8 ML SYRINGE SUBCUT SCH (21:43)
[2016-11-25] MEDS: INSULIN REGULAR 100 UNIT/ML SUBCUT SCH ×4 (00:32→18:35)
[2016-11-25] MEDS: ALBUTEROL/IPRATROPIUM 3 ML NEB RESP TX SCH ×4 (01:35→20:41)
[2016-11-25] MEDS: PHENYTOIN 100 MG/2 ML VIAL IV SCH ×3 (02:28→18:35)
[2016-11-25 04:38] LABS: Basophils # 0.1 10*3/uL (0.0-0.2); Basophils % 0.9 % (0.0-0.8); Eosinophils # 0.4 10*3/uL (0.0-0.87); Eosinophils % 4.5 % (0.00-10.9); Hematocrit 29.8 VOL% (42.0-52.0); Immature Granulocytes % 0.6 %; Immature Granulocytes Absolute 0.06 #; Lymphocytes # 1.7 10*3/uL (1.4-4.0); Mean Corpuscular HGB Conc 33.6 GM/DL (32-36); Mean Corpuscular Hemoglobin 28 PG (27-34); Mean Corpuscular Volume 83.9 FL (87-102); Mean Platelet Volume 10.7 FL (9.6-12.0); Monocytes # 1.1 10*3/uL (0.11-0.8); Monocytes % 11.8 % (1.7-12.7); Neutrophils % 64.2 % (38.7-73.9); Platelet Count 242 T/CUMM (130-400); Red Blood Count 3.55 MC/CUMM (3.8-5.5); Red Cell Distribution Width 14.4 % (9.3-17.3); White Blood Count 9.4 T/CUMM (4-12)
[2016-11-25 04:47] LABS: INR 2.1
[2016-11-25 04:53] LABS: PT Patient Result 23.4 SECS
[2016-11-25 05:07] LABS: Calcium 8.7 MG/DL (8.5-10.1); Potassium 3.5 MMOL/L (3.5-5.1)
[2016-11-25 05:22] LABS: Phosphorous 2.2 MG/DL (2.5-4.9); Prealbumin 18.6 MG/DL (20-40)
[2016-11-25] MEDS: hydrALAZINE 20 MG/1 ML VIAL IV PRN ×2 (05:56→13:31)
--- NOTE | 2016-11-25 06:27 | Pulmonology Progress Note ---
Pulmonary - PN: Subj Interval history: 75-year-old black male who [facility]. He was brought in unresponsive. Has urinary tract infection. Previous stroke. Starting to wake up now. He does have a seizure disorder and his Dilantin level was 19. He is on the ventilator and his ABGs are improved. Chest x-ray is clear. Will progress with weaning today. 11/19/2016 patient did CPAP fairly well yesterday. This morning he is pretty drowsy. His propofol was turned off over 2 hours ago when he still drowsy. I will discontinue propofol. We will use as needed Ativan if he fights the ventilator at night. The main reason for his being on the ventilator is decreased level of consciousness. We need him to be much more alert in order to safely extubate. His lungs are clear on x-ray. ABGs look good. No reason not to extubate once his mental status improved. 11/22/2016 patient tolerating prolonged CPAP trials. Chest x-ray clear. ABGs look good. I am told that he is quite awake in the afternoons. He is sleepy in the mornings. I am going to stop his Lyrica. Recheck Dilantin level which was 16 on Tuesday. Will try him on a T-tube today and if he does okay get him extubated. 11/23/2016 patient was extubated without difficulty. He is responsive. He is a little sleepy. We used CPAP on him overnight. He had a right nosebleed last night after difficulty getting an NG tube back down. Dr. Dixon has packed his right naris. At present his oxygen saturation is in the mid 90s on room air. Hopefully we can just keep him on room air. If he needs oxygen we can use a nasal cup which should not aggravate his nose. 11/24/2016 patient has done well overnight postextubation. He was on BiPAP for a couple of hours during the night but did not tolerate well. His room air oxygen saturation is now 98-99% so we will leave oxygen off. Will get speech therapy to evaluate swallowing. Patient was on a pured diet prior to coming into the hospital. 11/25/2016 patient doing well on room air. Not tolerating BiPAP. We will discontinue that for now. He did take some liquids by mouth yesterday. Apparently has developed right cephalic vein thrombosis. On anticoagulants. Exam (Progress Note) - Constitutional Vitals: Period Temp Pulse Resp BP Sys/Gregorio Pulse Ox Last 24 Hr 97.4 F-99.7 F 93-103 9- 119-188/63-98 95-100 Exam: Patient is more alert and he is responsive. Able to answer questions. Memory appears poor. Now on room air. Vital signs normal. Pupils react to light. Arcus senilis. Neck supple. Chest clear equal breath sounds. Heart normal rate rhythm no murmurs. Abdomen soft no masses. Bowel sounds present. Extremities no clubbing cyanosis trace of edema. Has left hemiparesis from previous stroke. Results - Labs CBC & BMP: 11/25/16 03:10 11/25/16 03:10 Lab Results: I have reviewed the past 24 hour labs Assessment and Plan (1) Acute respiratory failure Status: Resolved Assessment and plan: We will adjust ventilator settings. Has a mild acidosis. There is no reported underlying chronic lung problems. He has been on the ventilator about 10 years ago however. Respiratory acidosis. 11/18/2016 improved. Will reduce PEEP and change to IMV. Begin weaning trials. 11/19/2016 tolerating CPAP. ABGs have looked good. We can extubate when mental status improves where he can defend his airway. Stopping propofol. I think it is hanging around a while on him this morning 11/22/2016 ABGs look good. Try him on T-tube. If mental status allows will extubate. 11/23/2016 patient over the acute respiratory failure. Had a clear chest x-ray yesterday. Did well with extubation. It appears that he does have obstructive sleep apnea. We will try to keep his O2 sats in the low 90s during the day and use BiPAP at night. 11/24/2016 patient tolerating room air well. O2 sat high 90s. Did not tolerate BiPAP. We will leave that off tonight. 11/25/2016 O2 sats in high 90s on room air. Respiratory failure has resolved. Does not tolerate the facemask BiPAP. Did well on room air during the night after it was removed. Will discontinue BiPAP. Main cause of respiratory failure was decreased level of consciousness. This was likely brought on by his urinary tract infection Current Visit: Yes (2) Obstructive sleep apnea Status: Acute Assessment and plan: We will keep this in mind when we get to the point of extubation. Will need CPAP at that time and close watch of mental status. 11/19/2016 will need CPAP or BiPAP once he is extubated. Especially at bedtime 11/22/2016 will need BiPAP once extubated. 11/23/2016 using BiPAP overnight 11/24/2016 he did not tolerate the BiPAP very well. Will need sleep evaluation prior to getting out of hospital 11/25/2016 seems to tolerate sleep without BiPAP. May need sleep lab evaluation in time. Current Visit: No (3) Recurrent urinary tract infection Status: Acute Assessment and plan: Urinalysis certainly consistent with urinary tract infection. May have sepsis due to this. However there is no fever and his white blood count is normal. He does have elevated lactic acid level decreased level of consciousness and hypotension. 11/18/2016 no report yet on urine culture. Continuing empiric antibiotics. Renal function looks good with creatinine 1.2. 11/19/2016 has greater than 100,000 colonies of gram-negative rods on his urine. He is on empiric antibiotics. Check sensitivity when that is out. I think the urinary tract infection with sepsis is the main cause of his decreased level of consciousness. He has had a previous stroke with left quique-plegia. 11/22/2016 patient grew E. coli from urine. Antibiotics changed to Fortaz yesterday. 11/24/2016 UTI with E. coli. Covered with appropriate antibiotics. Likely this was the cause of decreased mental status. 11/25/2016 finish out 7 days of antibiotics. 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 He also has some dementia. 11/22/2016 has left hemiplegia. 11/23/2016 has left hemiplegia but is responsive and able to say a few words 11/24/2016 has left hemiplegia. Able to talk but his speech is slow and scanning. 11/25/2016 speech seems acceptable. Swallowing liquids okay. Progress diet as tolerated. Has a left hemiplegia actually Current Visit: No (5) Left hemiplegia Status: Inactive Assessment and plan: We will keep in mind when evaluating responsiveness. 11/18/2016 only moving right side when alert. 11/22/2016 again this is due to his previous stroke. Is able to move his right arm and try to pull his tube out when awake 11/25/2016 left hemiplegia. Using his right arm and leg appropriately. Current Visit: No (6) Coronary artery disease Status: Chronic Assessment and plan: Previous coronary stents and coronary bypass surgery. Cardiac enzymes are negative thus far. 11/18/2016 normal LV ejection fraction on echo. Has mild pulmonary hypertension. 11/19/2016 no signs of congestive heart failure or angina. Cardiac enzymes are normal 11/23/2016 no chest pain 11/25/2016 no complaints of chest pain. Current Visit: No Qualifiers: Coronary Disease-Associated Artery/Lesion type: [place] artery [place] vs. transplanted heart: [place] heart (7) Seizure disorder Status: Acute Assessment and plan: Defer to neurology. 11/18/2016 has been seen by neurology. Dilantin level 19. No seizures. 11/19/2016 he is home seizure medications need to keep the levels in the therapeutic range. Could be sedated by them 11/22/2016 now on Dilantin 100 mg 3 times a day and his level was 16 day before yesterday. Recheck Dilantin level. Need to keep it covered for seizures but hopefully not drowsy from the Dilantin. 11/23/16 continuing seizure medications. Dilantin level was 14 yesterday this is good 11/24/2016 no further seizures. We have Dilantin at a lower dose now. Can change to oral once we get him eating 11/25/2016 no seizures here. Current Visit: No (8) Altered mental status Status: Acute Assessment and plan: Unresponsive but presently is on propofol 11/18/2016 I am told by nurses that patient is responsive when propofol is held. He is currently sedated. 11/19/2016 likely due to urinary tract infection with sepsis. Check blood levels of seizure medicines. 11/22/2016 UTI with sepsis should be controlled at this point. Hopefully he will be alert when no sedation given. He is getting intermittent Ativan. 11/23/2016 he is more alert. Cannot give any sedation. 11/24/2016 on admission he had a markedly decreased level of consciousness. He is now able to interact and talk a little bit. Not sure how alert he was in his baseline status. 11/25/2016 it appears his mental status is about back to his baseline. Current Visit: No
[2016-11-25] MEDS: INSULIN GLARGINE 100 UNIT/ML SUBCUT SCH (08:23)
[2016-11-25] MEDS: VANCOMYCIN INJ 1,000 MG in SODIUM CHLORIDE 0.9% 250 ML IV SCH (08:24)
[2016-11-25] MEDS: ENOXAPARIN 120 MG/0.8 ML SYRINGE SUBCUT SCH ×2 (08:24→22:20)
--- NOTE | 2016-11-25 09:31 | Internal Med Progress Note ---
Assessment and Plan (1) Acute respiratory failure Status: Resolved Assessment and plan: Resolved, patient is extubated on oxygen doing well, , pulse ox in high 90s, follow spinneret person recommendations. We will continue care in ICU for today, we'll start TPN. It is not a candidate for PEG tube. * Consult case management worker, options of discharge plans in future. * DVT, of upper extremity, INR 2.1 on Coumadin 5 mg by mouth daily ,DC Lovenox today * Altered mental status, somnolent appearance today. * Gram-positive bacteremia, continue antibiotics * History of seizures: Stable, on antiepileptics * Diabetes mellitus, continue meds, sliding scale insulin, Lantus * hypertension: Continue antihypertensives Current Visit: Yes (2) Respiratory arrest Status: Resolved Current Visit: Yes (3) UTI (urinary tract infection) Status: Resolved Current Visit: Yes (4) Diabetes mellitus Status: Chronic Current Visit: Yes Qualifiers: Diabetes mellitus type: type 2 Diabetes mellitus complication detail: with chronic kidney disease Diabetes mellitus prison insulin use: with terminal clerk use Chronic kidney disease stage: stage 3 (moderate) (5) Essential hypertension Status: Chronic Current Visit: Yes (6) Obstructive sleep apnea Status: Chronic Current Visit: Yes (7) Altered mental status Status: Acute Current Visit: No (8) DVT of upper extremity (deep vein thrombosis) Status: Acute Current Visit: Yes Internal Medicine - PN: Subj Interval history: PCP Dr. Tyson, Patient is seen and examined in the ICU, patient is somnolent than yesterday, Unable to swallow clears as per the nurse. Right upper extremity swollen, has DVT of cephalic vein Consultants on case: Pulmonology, infectious disease. Exam (Progress Note) - Constitutional Vitals: Period Temp Pulse Resp BP Sys/Gregorio Pulse Ox Last 24 Hr 97.4 F-98.9 F 93-103 9-29 119-188/63-98 95-100 Exam: GENERAL APPEARANCE: Awake, follows simple commands when lying in the bed. HEENT: Dried nasal secretions at the external nares. EYES: extraocular movement intact (EOMI), HEART: regular rate and rhythm, no murmurs, rubs, gallops. LUNGS: clear to auscultation bilaterally, . ABDOMEN: soft, nontender, , bowel sounds present. EXTREMITIES: Right upper extremity swollen, tender to touch. Radial artery 2+ pulses NEUROLOGIC: Awake but somnolent. Results - Labs CBC & BMP: 11/25/16 03:10 11/25/16 03:10 Lab Results: I have reviewed the past 24 hour labs
[2016-11-25] MEDS: SODIUM CHLORIDE 0.45% 1,000 ML IV SCH (11:23)
[2016-11-25] MEDS ORDERED: POTASSIUM PHOSPHATE 30 MMOL in SODIUM CHLORIDE 0.9% 250 ML IV ONE (11:30)
[2016-11-25] MEDS: amLODIPine 10 MG TABLET PO SCH (13:21)
[2016-11-25] MEDS: ATENOLOL 25 MG TABLET PO SCH (13:21)
[2016-11-25] MEDS: SERTRALINE 50 MG TABLET PO SCH (13:22)
--- NOTE | 2016-11-25 15:19 | Infectious Disease Progress ---
Assessment and Plan (1) Gram-positive bacteremia Status: Acute Assessment and plan: JOHN septicemia Recommendations: Continue vancomycin; trough level better today. Plan is for 2 weeks of therapy from date of negative blood cultures so until December 04. Current Visit: Yes (2) Acute respiratory failure Status: Resolved Current Visit: Yes (3) Altered mental status Status: Acute Current Visit: Yes Qualifiers: Altered mental status type: somnolence Qualified Code(s): R40.0 - Somnolence (4) Diabetes mellitus Status: Chronic Current Visit: Yes Qualifiers: Diabetes mellitus type: type 2 Diabetes mellitus complication detail: with chronic kidney disease Diabetes mellitus intermediate frame tender insulin use: with alf use Chronic kidney disease stage: stage 3 (moderate) (5) Essential hypertension Status: Chronic Current Visit: Yes (6) UTI (urinary tract infection) Status: Acute Assessment and plan: Patient has E. coli UTI and has been on cefazolin without any suggestion of allergic reaction. Continue this antibiotic for a few more days. Current Visit: Yes (7) Acute renal insufficiency Status: Acute Assessment and plan: Renal function remains normal on vancomycin. Continue to monitor. Current Visit: Yes Infectious Disease - PN: Subj Interval history: Delayed entry - patient seen this morning. He was a bit more lethargic than yesterday. No said she could not get him to eat this morning compared to yesterday when he ate well. He has been afebrile. Infectious Disease Exam (PN) - Constitutional Vitals: Temp Pulse Resp BP Pulse Ox 98.9 F 101 H 14 137/68 100 11/25/16 15:00 11/25/16 15:00 11/25/16 15:00 11/25/16 15:00 11/25/16 15:00 General appearance: no severe distress Exam: General appearance: Drowsy but arousable, not as quickly responsive as yesterday - Eye Eye exam: Present: EOMI. no icterus Pupils: Present: MAYA - Respiratory Respiratory exam: vesicular BS, no crepitations or wheezes - Cardiovascular Cardiovascular exam: regular rate and rhythm, no murmurs - GI/Abdominal GI/Abdominal exam: normal bowel sounds, soft, non-tender - Extremities Exam Extremities exam: no edema - Skin Skin exam: no rash Results - Labs CBC & BMP: 11/25/16 03:10 11/25/16 03:10 Lab Results: I have reviewed the past 24 hour labs
[2016-11-25] MEDS ORDERED: DEXTROSE 10% 1,000 ML IV PRN (17:00)
[2016-11-25] MEDS ORDERED: TRACE ELEMENTS (5) 1 ML, MULTIVITAMIN INJ 10 ML, INSULIN REGULAR 10 UNIT in AMINO ACIDS... IV SCH (17:00)
[2016-11-25] MEDS: WARFARIN 5 MG TABLET PO SCH (18:00)
[2016-11-26] MEDS: INSULIN REGULAR 100 UNIT/ML SUBCUT SCH ×3 (00:22→13:58)
[2016-11-26] MEDS: ALBUTEROL/IPRATROPIUM 3 ML NEB RESP TX SCH ×3 (02:45→11:57)
[2016-11-26] MEDS: VANCOMYCIN INJ 1,000 MG in SODIUM CHLORIDE 0.9% 250 ML IV SCH (03:23)
[2016-11-26] MEDS: PHENYTOIN 100 MG/2 ML VIAL IV SCH ×2 (03:23→09:49)
[2016-11-26] MEDS: hydrALAZINE 20 MG/1 ML VIAL IV PRN (05:06)
[2016-11-26 05:23] LABS: Basophils # 0.1 10*3/uL (0.0-0.2); Basophils % 0.8 % (0.0-0.8); Eosinophils # 0.4 10*3/uL (0.0-0.87); Eosinophils % 4.9 % (0.00-10.9); Hematocrit 27.8 VOL% (42.0-52.0); Hemoglobin 9.2 GM/DL (14.0-18.0); Immature Granulocytes % 0.6 %; Immature Granulocytes Absolute 0.05 #; Lymphocytes # 1.3 10*3/uL (1.4-4.0); Lymphocytes % 14.9 % (21.2-54.2); Mean Corpuscular HGB Conc 33.1 GM/DL (32-36); Mean Corpuscular Hemoglobin 28 PG (27-34); Mean Corpuscular Volume 84.5 FL (87-102); Mean Platelet Volume 10.6 FL (9.6-12.0); Monocytes # 1.1 10*3/uL (0.11-0.8); Monocytes % 13.2 % (1.7-12.7); Neutrophils # 5.6 10*3/uL (1.4-7.4); Neutrophils % 65.6 % (38.7-73.9); Platelet Count 239 T/CUMM (130-400); Red Blood Count 3.29 MC/CUMM (3.8-5.5); Red Cell Distribution Width 14.5 % (9.3-17.3); White Blood Count 8.6 T/CUMM (4-12)
[2016-11-26] MEDS: SODIUM CHLORIDE 0.45% 1,000 ML IV SCH (05:30)
[2016-11-26 06:16] LABS: Calcium 7.9 MG/DL (8.5-10.1); Osmolality,Calculated 291.8 MOS/KG (273-304); Potassium 3.6 MMOL/L (3.5-5.1)
[2016-11-26 06:28] LABS: Phosphorous 2.9 MG/DL (2.5-4.9); Prealbumin 15.4 MG/DL (20-40)
--- NOTE | 2016-11-26 07:15 | Pulmonology Progress Note ---
Pulmonary - PN: Subj Interval history: 75-year-old black male who lives in a correction. He was brought in unresponsive. Has urinary tract infection. Previous stroke. Starting to wake up now. He does have a seizure disorder and his Dilantin level was 19. He is on the ventilator and his ABGs are improved. Chest x-ray is clear. Will progress with weaning today. 11/19/2016 patient did CPAP fairly well yesterday. This morning he is pretty drowsy. His propofol was turned off over 2 hours ago when he still drowsy. I will discontinue propofol. We will use as needed Ativan if he fights the ventilator at night. The main reason for his being on the ventilator is decreased level of consciousness. We need him to be much more alert in order to safely extubate. His lungs are clear on x-ray. ABGs look good. No reason not to extubate once his mental status improved. 11/22/2016 patient tolerating prolonged CPAP trials. Chest x-ray clear. ABGs look good. I am told that he is quite awake in the afternoons. He is sleepy in the mornings. I am going to stop his Lyrica. Recheck Dilantin level which was 16 on Tuesday. Will try him on a T-tube today and if he does okay get him extubated. 11/23/2016 patient was extubated without difficulty. He is responsive. He is a little sleepy. We used CPAP on him overnight. He had a right nosebleed last night after difficulty getting an NG tube back down. Dr. Dixon has packed his right naris. At present his oxygen saturation is in the mid 90s on room air. Hopefully we can just keep him on room air. If he needs oxygen we can use a nasal cup which should not aggravate his nose. 11/24/2016 patient has done well overnight postextubation. He was on BiPAP for a couple of hours during the night but did not tolerate well. His room air oxygen saturation is now 98-99% so we will leave oxygen off. Will get speech therapy to evaluate swallowing. Patient was on a pured diet prior to coming into the hospital. 11/25/2016 patient doing well on room air. Not tolerating BiPAP. We will discontinue that for now. He did take some liquids by mouth yesterday. Apparently has developed right cephalic vein thrombosis. On anticoagulants. 11/26/2016 patient's oxygen saturation is 100% on room air and his chest x-ray has been clear. He does not tolerate BiPAP at night. Does have some evidence of sleep apnea on physical exam of sleep. He is not taking much by mouth. Unable to get feeding tube down since she had the nosebleed earlier. Not a candidate for PEG at present apparently. Needs IV antibiotics another week for the staph epi bacteremia. He did have 2 of 2 positive culture so it must be assumed to be accurate. Also had E. coli UTI and is about to finish antibiotics for that. Has had previous stroke and does have dementia. He is able to talk and say a few words slowly. Exam (Progress Note) - Constitutional Vitals: Period Temp Pulse Resp BP Sys/Gregorio Pulse Ox Last 24 Hr 98.2 F-98.9 F 89-126 10-30 97-177/61-109 98-100 Exam: Patient is asleep but arousable. Able to answer questions with few words. Memory appears poor. Now on room air. Vital signs normal. Pupils react to light. Arcus senilis. Neck supple. Chest clear equal breath sounds. Heart normal rate rhythm no murmurs. Abdomen soft no masses. Bowel sounds present. Extremities no clubbing cyanosis trace of edema. Has left hemiparesis from previous stroke. Results - Labs CBC & BMP: 11/26/16 04:00 11/26/16 04:15 Lab Results: I have reviewed the past 24 hour labs Assessment and Plan (1) Acute respiratory failure Status: Resolved Assessment and plan: We will adjust ventilator settings. Has a mild acidosis. There is no reported underlying chronic lung problems. He has been on the ventilator about 10 years ago however. Respiratory acidosis. 11/18/2016 improved. Will reduce PEEP and change to IMV. Begin weaning trials. 11/19/2016 tolerating CPAP. ABGs have looked good. We can extubate when mental status improves where he can defend his airway. Stopping propofol. I think it is hanging around a while on him this morning 11/22/2016 ABGs look good. Try him on T-tube. If mental status allows will extubate. 11/23/2016 patient over the acute respiratory failure. Had a clear chest x-ray yesterday. Did well with extubation. It appears that he does have obstructive sleep apnea. We will try to keep his O2 sats in the low 90s during the day and use BiPAP at night. 11/24/2016 patient tolerating room air well. O2 sat high 90s. Did not tolerate BiPAP. We will leave that off tonight. 11/25/2016 O2 sats in high 90s on room air. Respiratory failure has resolved. Does not tolerate the facemask BiPAP. Did well on room air during the night after it was removed. Will discontinue BiPAP. Main cause of respiratory failure was decreased level of consciousness. This was likely brought on by his urinary tract infection 11/26/2016 oxygen saturation 99-100% on room air. Not in respiratory failure at present. Has a history of sleep apnea and certainly appears to have that a physical exam but is not dropping his saturations much at night. He does not tolerate the CPAP. For now we just leaving it off. He does have some dementia from previous stroke. Current Visit: Yes (2) Obstructive sleep apnea Status: Acute Assessment and plan: We will keep this in mind when we get to the point of extubation. Will need CPAP at that time and close watch of mental status. 11/19/2016 will need CPAP or BiPAP once he is extubated. Especially at bedtime 11/22/2016 will need BiPAP once extubated. 11/23/2016 using BiPAP overnight 11/24/2016 he did not tolerate the BiPAP very well. Will need sleep evaluation prior to getting out of hospital 11/25/2016 seems to tolerate sleep without BiPAP. May need sleep lab evaluation in time. Current Visit: No (3) Recurrent urinary tract infection Status: Acute Assessment and plan: Urinalysis certainly consistent with urinary tract infection. May have sepsis due to this. However there is no fever and his white blood count is normal. He does have elevated lactic acid level decreased level of consciousness and hypotension. 11/18/2016 no report yet on urine culture. Continuing empiric antibiotics. Renal function looks good with creatinine 1.2. 11/19/2016 has greater than 100,000 colonies of gram-negative rods on his urine. He is on empiric antibiotics. Check sensitivity when that is out. I think the urinary tract infection with sepsis is the main cause of his decreased level of consciousness. He has had a previous stroke with left quique-plegia. 11/22/2016 patient grew E. coli from urine. Antibiotics changed to Fortaz yesterday. 11/24/2016 UTI with E. coli. Covered with appropriate antibiotics. Likely this was the cause of decreased mental status. 11/25/2016 finish out 7 days of antibiotics. 11/26/2016 about ready to stop Ancef for the E. coli UTI. This may well have been what caused the acute decrease in his level of consciousness. 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 He also has some dementia. 11/22/2016 has left hemiplegia. 11/23/2016 has left hemiplegia but is responsive and able to say a few words 11/24/2016 has left hemiplegia. Able to talk but his speech is slow and scanning. 11/25/2016 speech seems acceptable. Swallowing liquids okay. Progress diet as tolerated. Has a left hemiplegia actually 11/26/2016 left hemiplegia. Speech is slow but he is able to talk. Taking some liquids by mouth. Will need to be able to advance his diet before we could consider his going to a correction. Current Visit: No (5) Left hemiplegia Status: Inactive Assessment and plan: We will keep in mind when evaluating responsiveness. 11/18/2016 only moving right side when alert. 11/22/2016 again this is due to his previous stroke. Is able to move his right arm and try to pull his tube out when awake 11/25/2016 left hemiplegia. Using his right arm and leg appropriately. Current Visit: No (6) Coronary artery disease Status: Chronic Assessment and plan: Previous coronary stents and coronary bypass surgery. Cardiac enzymes are negative thus far. 11/18/2016 normal LV ejection fraction on echo. Has mild pulmonary hypertension. 11/19/2016 no signs of congestive heart failure or angina. Cardiac enzymes are normal 11/23/2016 no chest pain 11/25/2016 no complaints of chest pain. 11/26/2016 no active angina Current Visit: No Qualifiers: Coronary Disease-Associated Artery/Lesion type: [place] artery [place] vs. transplanted heart: [place] heart (7) Seizure disorder Status: Acute Assessment and plan: Defer to neurology. 11/18/2016 has been seen by neurology. Dilantin level 19. No seizures. 11/19/2016 he is home seizure medications need to keep the levels in the therapeutic range. Could be sedated by them 11/22/2016 now on Dilantin 100 mg 3 times a day and his level was 16 day before yesterday. Recheck Dilantin level. Need to keep it covered for seizures but hopefully not drowsy from the Dilantin. 11/23/16 continuing seizure medications. Dilantin level was 14 yesterday this is good 11/24/2016 no further seizures. We have Dilantin at a lower dose now. Can change to oral once we get him eating 11/25/2016 no seizures here. Current Visit: No (8) Altered mental status Status: Acute Assessment and plan: Unresponsive but presently is on propofol 11/18/2016 I am told by nurses that patient is responsive when propofol is held. He is currently sedated. 11/19/2016 likely due to urinary tract infection with sepsis. Check blood levels of seizure medicines. 11/22/2016 UTI with sepsis should be controlled at this point. Hopefully he will be alert when no sedation given. He is getting intermittent Ativan. 11/23/2016 he is more alert. Cannot give any sedation. 11/24/2016 on admission he had a markedly decreased level of consciousness. He is now able to interact and talk a little bit. Not sure how alert he was in his baseline status. 11/25/2016 it appears his mental status is about back to his baseline. 11/26/16 Mental Status Probably Close to his midline presently Current Visit: No
--- NOTE | 2016-11-26 09:29 | Internal Med Progress Note ---
Assessment and Plan (1) Acute respiratory failure Status: Resolved Assessment and plan: Resolved, patient is extubated on oxygen doing well, , pulse ox in high 90s, follow brand designer recommendations. We will continue care in ICU for today, we'll start TPN. It is not a candidate for PEG tube. * Consult case management worker, options of discharge plans in future. * DVT, of upper extremity, INR 2.1 on Coumadin 5 mg by mouth daily ,DC Lovenox today * Altered mental status, somnolent appearance today. * Gram-positive bacteremia, continue antibiotics * History of seizures: Stable, on antiepileptics * Diabetes mellitus, continue meds, sliding scale insulin, Lantus * hypertension: Continue antihypertensives Current Visit: Yes (2) Respiratory arrest Status: Resolved Current Visit: Yes (3) UTI (urinary tract infection) Status: Resolved Current Visit: Yes (4) Diabetes mellitus Status: Chronic Current Visit: Yes Qualifiers: Diabetes mellitus type: type 2 Diabetes mellitus complication detail: with chronic kidney disease Diabetes mellitus half-way insulin use: with intermediate card tender use Chronic kidney disease stage: stage 3 (moderate) (5) Essential hypertension Status: Chronic Current Visit: Yes (6) Obstructive sleep apnea Status: Chronic Current Visit: Yes (7) Altered mental status Status: Acute Current Visit: No (8) DVT of upper extremity (deep vein thrombosis) Status: Acute Current Visit: Yes Exam (Progress Note) - Constitutional Vitals: Period Temp Pulse Resp BP Sys/Gregorio Pulse Ox Last 24 Hr 98.2 F-100.3 F 89-126 10-30 97-177/61-109 98-100 Results - Labs CBC & BMP: 11/26/16 04:00 11/26/16 04:15
--- NOTE | 2016-11-26 09:30 | Discharge Summary ---
Hospital Course - Hospital Course Hospital Course: pt was brought in ER from [facility] for respiratory distress, Admitted for Acute respiratory failure, in ICU, and had Altered Mental status,Pt with h/o CVA with left hemiplegia,(11/16/2016:CT scan of the brain in ER was performed which revealed no acute finding.) He was intubated, put on the ventilator. PULMONOLOGY was consulted, ID was consulted ,Patient at the time of admission, was hypotensive, was put on pressors and stopped as BP improved. Patient was found to have UTI with suspicion of sepsis, broad spectrum IV ABx started, later found out to be in Gram-positive bacteremia, serial blood Cx were followed ,and the Abx were done as per ID suggestion, He had suprapubic catheter,UROLOGY was consulted. pt was started weaning off the ventilator, on 11/18/16, serial ABGs/chest x ray followed, CPAP and Bipap trials were done during the hospital stay.pt was at room air ultimately ,and saturated well,at the time of discharge, DVT, of upper extremity,on 11/24/16 , anticoagulation started , lovenox full dose , followed by coumadin, pt has history of seizures: Stable, during hospital stay, on dilantin, Neurology was consulted Diabetes mellitus, continued sliding scale insulin, Lantus hypertension: Continued antihypertensives once BP got stable. was put on clears as per swallow evaluation and TPN started too, since pt was somnolent on and off during hospital stay, Pt was continued on cefazolin and Vancomycin ,as per ID,Plan for 2 weeks of therapy from date of negative blood cultures so until December 04. pt was discharged to [facility], Diagnosis - Discharge Diagnosis (1) Acute respiratory failure Status: Resolved (2) Respiratory arrest Status: Resolved (3) UTI (urinary tract infection) Status: Resolved (4) Diabetes mellitus Status: Chronic (5) Essential hypertension Status: Chronic (6) Obstructive sleep apnea Status: Chronic (7) Altered mental status Status: Acute (8) DVT of upper extremity (deep vein thrombosis) Status: Acute (9) Gram-positive bacteremia Status: Resolved Specialty Discharge - Follow Up or Referrals Follow up with: Ry Andrade [facility] [Outside] (is a pt of [facility], accepted at [facility], pt needs to be on IV VANC, ANCEF till DECEMBER 04, on TPN , tolerating clears on and off , cause of altered mental status, has suprapubic catheter in place. Has central line at rt, DVT rt UE on coumadin , ) Discharge Plan - Discharge Data Disposition: Disch/Xfer to [facility] Condition at Discharge: Stable Discharge Diet: other (On TPN, tolerating clears on and off,) Activity: other (Bed bound) - Discharge Medications New amLODIPine [Norvasc] 10 mg PO DAILY tablet ceFAZolin [Ancef] 1,000 mg IV Q12H vial hydrALAZINE INJ [Apresoline Inj] 20 mg IV Q4H PRN vial PRN Reason: Hypertension LORazepam INJ [Ativan Inj] 1 mg IV Q6H PRN vial PRN Reason: Agitation Oxymetazoline 0.05% Nasal Spr [Afrin Nasal Winside] 2 spray BOTH NARES BID PRN bottle PRN Reason: nose bleed traMADol TAB [Ultram] 50 mg PO Q6H PRN tablet PRN Reason: Pain Atenolol [Tenormin] 25 mg PO DAILY tablet ceFAZolin [Ancef] 1,000 mg IV Q12H vial Dextrose 50% [D50] 25 gm IV PRN PRN vial PRN Reason: Hypoglycemia with IV access Glucagon 1 mg IM PRN PRN vial PRN Reason: Hypoglycemia w/o IV access hydrALAZINE TAB [Apresoline Tab] 50 mg PO TID tablet Insulin Glargine [Lantus] 10 unit SUBCUT DAILY unit Insulin Regular [HumuLIN R] See Protocol SUBCUT Q6HR unit Insulin Regular [HumuLIN R] 10 unit IV .Q24H unit Insulin Regular [HumuLIN R] 20 unit IV .[id number] unit Multivitamin Inj 10 ml IV .Q24H vial Multivitamin Inj 10 ml IV .[id number] vial Ondansetron Inj [Zofran Inj] 4 mg IV Q4H PRN vial PRN Reason: Nausea/Vomiting Phenytoin Inj [Dilantin Inj] 100 mg IV Q8H vial Sertraline [Zoloft] 100 mg PO DAILY tablet Skin Healing Oint (Aquaphor) [Aquaphor] 1 applic TOP PRN PRN applic PRN Reason: Dry Skin Vancomycin Inj 1,000 mg IV Q18H vial Warfarin [Coumadin] 5 mg PO DAILY@1800 tablet Discontinued Allopurinol 450 mg PO DAILY Omeprazole 1 tablet PO DAILY Furosemide Tab [Lasix Tab] 60 mg PO DAILY Sertraline HCl 100 mg PO DAILY Amlodipine Besylate 10 mg PO DAILY Lisinopril [Prinivil] 20 mg PO BID Insulin Aspart Prot/Asp 70/30 [NovoLOG Mix 70/30] 74 unit SUBCUT TIDAC HYDROcodone/ACETAMIN 7.5-325 [[place] 7.5-325] 7.5 mg PO Q6HR PRN PRN Reason: Pain Potassium Chloride [Klor-Con 10] 10 meq PO TID Lactulose 30 ml PO BID Aspirin Chew Tab 81 mg PO DAILY #100 tablet Warfarin [Coumadin] 5 mg PO DAILY Melatonin/Pyridoxine HCl (B6) [Melatonin 3 mg Tablet] 9 mg PO BEDTIME Atenolol 25 mg PO DAILY Phenytoin ER Cap [Dilantin Cap] 200 mg PO BID #120 capsule Pregabalin [Lyrica] 150 mg PO BEDTIME #30 capsule LORazepam INJ [Ativan Inj] 2 mg IM TID PRN PRN Reason: Agitation OLANZapine [Olanzapine] 5 mg PO BID Polyethylene Glycol Powder [Miralax] 1 packet PO DAILY - Follow Up or Referral Follow Up: [facility] [Outside] (is a pt of [facility], accepted at [facility], pt needs to be on IV VANC, ANCEF till DECEMBER 04, on TPN , tolerating clears on and off , cause of altered mental status, has suprapubic catheter in place. Has central line at rt, DVT rt UE on coumadin , ) - Forms/Instructions Exam - Constitutional Vitals: Period Temp Pulse Resp BP Sys/Gregorio Pulse Ox Last 24 Hr 98.2 F-100.3 F 89-126 10-30 97-177/61-109 98-100 Exam: GENERAL APPEARANCE: Awake, in acute distress, HEENT: Dried nasal secretions at the external nares. HEART: regular rate and rhythm, no murmurs, rubs, gallops. LUNGS: clear to auscultation bilaterally, . ABDOMEN: soft, nontender, , bowel sounds present. EXTREMITIES: Right upper extremity swollen, tender to touch. Radial artery 2+ pulses NEUROLOGIC: Awake but somnolent. Discharge Results Procedures and tests throughout hospitalization: Pending Orders 11/26/16 09:15 PTINR [Prothrombin Time INR] Routine 11/27/16 04:00 Basic Metabolic Panel IN AM Comp Blood Count Auto Diff IN AM 11/28/16 04:00 Basic Metabolic Panel IN AM Comp Blood Count Auto Diff IN AM 11/29/16 04:00 Magnesium MOTH Phosphorous MOTH Prealbumin Routine Labs on day of discharge: Labs from last 24 hours 11/26/16 11/26/16 11/26/16 06:04 04:15 04:15 WBC RBC Hgb Hct MCV MCH MCHC RDW Plt Count MPV Neut % (Auto) Lymph % (Auto) [place] % (Auto) Eos % (Auto) Baso % (Auto) Neut # (Auto) Lymph # (Auto) [place] # (Auto) Eos # (Auto) Baso # (Auto) Immature Gran % Nucleated RBC % Immature Gran # Nucleated RBCs # Sodium 144 Potassium 3.6 Chloride 109 H Carbon Dioxide 27 Anion Gap 11.6 BUN 12 Creatinine 0.70 GFR Calculation 143 BUN/Creatinine Ratio 17.00 Glucose 212 H POC Glucose 265 H Calculated Osmolality 291.8 Calcium 7.9 L Phosphorus 2.9 Magnesium 2.0 Prealbumin 15.4 L Triglycerides 92 Total Phenytoin 11/26/16 11/26/16 11/25/16 04:00 00:21 17:49 WBC 8.6 RBC 3.29 L Hgb 9.2 L Hct 27.8 L MCV 84.5 L MCH 28 MCHC 33.1 RDW 14.5 Plt Count 239 MPV 10.6 Neut % (Auto) 65.6 Lymph % (Auto) 14.9 L [place] % (Auto) 13.2 H Eos % (Auto) 4.9 Baso % (Auto) 0.8 Neut # (Auto) 5.6 Lymph # (Auto) 1.3 L [place] # (Auto) 1.1 H Eos # (Auto) 0.4 Baso # (Auto) 0.1 Immature Gran % 0.6 Nucleated RBC % 0.0 Immature Gran # 0.05 Nucleated RBCs # 0.00 Sodium Potassium Chloride Carbon Dioxide Anion Gap BUN Creatinine GFR Calculation BUN/Creatinine Ratio Glucose POC Glucose 247 H 170 H Calculated Osmolality Calcium Phosphorus Magnesium Prealbumin Triglycerides Total Phenytoin 11/25/16 11/20/16 11:49 06:47 WBC RBC Hgb Hct MCV MCH MCHC RDW Plt Count MPV Neut % (Auto) Lymph % (Auto) [place] % (Auto) Eos % (Auto) Baso % (Auto) Neut # (Auto) Lymph # (Auto) [place] # (Auto) Eos # (Auto) Baso # (Auto) Immature Gran % Nucleated RBC % Immature Gran # Nucleated RBCs # Sodium Potassium Chloride Carbon Dioxide Anion Gap BUN Creatinine GFR Calculation BUN/Creatinine Ratio Glucose POC Glucose 213 H Calculated Osmolality Calcium Phosphorus Magnesium Prealbumin Triglycerides Total Phenytoin 17.6 DS: Provider Date of admission: 11/16/16 21:51 Primary care physician: . 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 Provider: Jaycob Solo Consult to Specialist Group: Pulmonology When should Consulting Provider be notified: In am Person Notified: left voicemail for kenrick @ clinic Date Notified: 11/17/16 Time Notified: 08:44 Consult Notification Comment: dr solo saw pt earlier on rounds 11/16/16 23:45 Consult to Dietitian [CONS] Routine Reason for Dietitian: Diet Recommendations 11/17/16 09:40 Consult to Physician [CONS] Routine Comment: Seizures causing change in mental status Consulting Provider: Med Gtz 11/17/16 09:41 Consult to Physician [CONS] Routine Comment: Possible urosepsis and suprapubic catheter Consulting Provider: Vadim Jordan Person Notified: homar Date Notified: 11/17/16 Time Notified: 11:12 Consult Notification Comment: ebenezer pt in the past per clinic staff 11/19/16 08:23 Consult to Physician [CONS] Routine Comment: sepsis Consulting Provider: Anca Singh 11/19/16 11:51 Consult to Pharmacy [CONS] Routine Reason for Pharmacy Consult: Dose/Manage Vancomycin 11/19/16 12:00 Consult to Dietitian [CONS] Routine Reason for Dietitian: TF-Initiate/Manage 11/22/16 16:15 Consult to Physician [CONS] Routine Comment: Consulting Provider: Herman Dixon Consult to Specialist Group: ENT Person Notified: Dr. Dixon Date Notified: 11/22/16 Time Notified: 16:50 11/25/16 08:55 Consult to Case Mgmt/Social Srvs [CONS] Routine Reason for Case Mgmt/Social Srvs: Discharge Planning Swingbed/SNF/Senior Living Consult Comment: Can Queen Leandra given IV ABX? Needs through December 04 11/25/16 12:12 Consult to Dietitian [CONS] Routine Reason for Dietitian: TPN/PPN-Initiate/Manage 11/26/16 09:25 Consult to Case Mgmt/Social Srvs [CONS] Routine Reason for Case Mgmt/Social Srvs: LTAC Consult Comment: IV ABX X2 TIL 12/04, TPN Discharging clinician: Remedios Richardson MD
[2016-11-26] MEDS: INSULIN GLARGINE 100 UNIT/ML SUBCUT SCH (09:45)
[2016-11-26] MEDS: amLODIPine 10 MG TABLET PO SCH (09:52)
[2016-11-26] MEDS: SERTRALINE 50 MG TABLET PO SCH (09:53)
[2016-11-26] MEDS: ATENOLOL 25 MG TABLET PO SCH (09:53)
[2016-11-26 09:57] LABS: INR 1.5; PT Patient Result 16.7 SECS
--- NOTE | 2016-11-26 10:36 | Infectious Disease Progress ---
Assessment and Plan (1) Gram-positive bacteremia Status: Acute Assessment and plan: JOHN septicemia Recommendations: Continue vancomycin with monitoring of levels and close monitoring of renal function. Plan is for 2 weeks of therapy from date of negative blood cultures so until December 04. Current Visit: Yes (2) Acute respiratory failure Status: Resolved Current Visit: Yes (3) Altered mental status Status: Acute Current Visit: Yes Qualifiers: Altered mental status type: somnolence Qualified Code(s): R40.0 - Somnolence (4) Diabetes mellitus Status: Chronic Current Visit: Yes Qualifiers: Diabetes mellitus type: type 2 Diabetes mellitus complication detail: with chronic kidney disease Diabetes mellitus skilled nursing insulin use: with mechanical engineering director use Chronic kidney disease stage: stage 3 (moderate) (5) Essential hypertension Status: Chronic Current Visit: Yes (6) UTI (urinary tract infection) Status: Resolved Assessment and plan: Patient has E. coli UTI and has completed 10 days of antibiotic therapy for this therefore I will stop the cefazolin. Current Visit: Yes (7) Acute renal insufficiency Status: Acute Assessment and plan: Renal function remains normal on vancomycin. Continue to monitor. Current Visit: Yes Infectious Disease - PN: Subj Interval history: Patient is doing a little better today, more alert and interactive. Still having difficulty with eating, no fever. Infectious Disease Exam (PN) - Constitutional Vitals: Temp Pulse Resp BP Pulse Ox 100.3 F H 105 H 20 153/74 100 11/26/16 08:00 11/26/16 08:00 11/26/16 08:00 11/26/16 08:00 11/26/16 08:00 General appearance: no severe distress Exam: General appearance: More easily arousable, comfortable - Eye Eye exam: Present: EOMI. no icterus Pupils: Present: MAYA - Respiratory Respiratory exam: vesicular BS, no crepitations or wheezes - Cardiovascular Cardiovascular exam: regular rate and rhythm, no murmurs - GI/Abdominal GI/Abdominal exam: normal bowel sounds, soft, non-tender - Extremities Exam Extremities exam: no edema - Skin Skin exam: no rash Results - Labs CBC & BMP: 11/26/16 04:00 11/26/16 04:15 Lab Results: I have reviewed the past 24 hour labs
[2016-11-26] MEDS ORDERED: WARFARIN 2 MG TABLET PO ONE (11:00)
[2016-11-26] MEDS ORDERED: traMADol 50 MG TABLET PO PRN (11:02)
[2016-11-26] MEDS ORDERED: FAT EMULSION 20% 250 ML IV SCH (14:00)
[2016-11-26 14:05] VITALS: BP 150/75
[2016-11-26] MEDS: ENOXAPARIN 120 MG/0.8 ML SYRINGE SUBCUT SCH (16:46)
[2016-11-26] MEDS ORDERED: TRACE ELEMENTS (5) 1 ML, MULTIVITAMIN INJ 10 ML, INSULIN REGULAR 50 UNIT in AMINO ACIDS... IV SCH (17:00)
[2016-11-26] MEDS ORDERED: TRACE ELEMENTS (5) 1 ML, MULTIVITAMIN INJ 10 ML, INSULIN REGULAR 20 UNIT in AMINO ACIDS... IV SCH (17:00)
== END 2016-11-26 14:30 | DRG 207 ==
LOC: N.ED 20:04 → N.EDINP 21:51 → N.CC 22:37 → N.ICU 11-17 17:49 → N.CC 11-24 14:48
PROVIDERS: ADMIT Internal Medicine; ATTEND Internal Medicine

== ENCOUNTER 2017-10-26 10:26 | Inpatient (IN) ==
[2017-10-26 11:13] LABS: Amorphous Crystals,Urine Occasional /HPF (Few); Apearance,Urine CLOUDY (Clear); Bilirubin,Urine Negative (Negative); Blood, Urine Negative (Negative); Glucose,Urine (UA) Negative (Negative); Ketones,Urine Negative (Negative); Mucus,Urine Occasional /LPF (Occasional); Nitrite,Urine Positive (Negative); Protein,Urine 100 MG/DL; Squamous Epithelial Cell,Urine Occasional /HPF (0-10); Triple Phosphate Crystal,Urine Occasional /HPF (Few); Urine Color Yellow (Yellow); Urine Urobilinogen < 2.0 EU/DL (0.2-1.0); WBC,Urine 6 /HPF (0-6)
[2017-10-26] MEDS ORDERED: NALOXONE 0.4 MG/ML VIAL IV STA (12:02)
[2017-10-26] MEDS ORDERED: NALOXONE 0.4 MG/ML VIAL ONE (12:04)
[2017-10-26 12:12] LABS: Basophils % 0.6 % (0.0-0.8); Eosinophils # 0.5 10*3/uL (0.0-0.87); Eosinophils % 6.6 % (0.00-10.9); Hematocrit 37.1 VOL% (42.0-52.0); Hemoglobin 11.8 GM/DL (14.0-18.0); Immature Granulocytes % 0.4 %; Immature Granulocytes Absolute 0.03 #; Lymphocytes # 1.7 10*3/uL (1.4-4.0); Lymphocytes % 24.2 % (21.2-54.2); Mean Corpuscular HGB Conc 31.8 GM/DL (32-36); Mean Corpuscular Hemoglobin 27 PG (27-34); Mean Corpuscular Volume 83.6 FL (87-102); Mean Platelet Volume 9.4 FL (9.6-12.0); Monocytes # 0.4 10*3/uL (0.11-0.8); Monocytes % 6.3 % (1.7-12.7); Neutrophils # 4.3 10*3/uL (1.4-7.4); Neutrophils % 61.9 % (38.7-73.9); Platelet Count 261 T/CUMM (130-400); Red Blood Count 4.44 MC/CUMM (3.8-5.5); Red Cell Distribution Width 13.6 % (9.3-17.3)
[2017-10-26 12:19] LABS: INR 1.6
[2017-10-26 12:35] LABS: Ammonia 15 UMOL/L (11-32)
[2017-10-26 12:42] LABS: Alanine Aminotransferase 23 U/L (16-61); Albumin 3.1 G/DL (3.4-5.0); Alkaline Phosphatase 103 U/L (45-117); Aspartate Amino Transferase 16 U/L (0-37); Bilirubin,Total < 0.39 MG/DL (0.2-1.0); Blood Urea Nitrogen 17 MG/DL (7-18); Calcium 8.8 MG/DL (8.5-10.1); Glucose 269 MG/DL (74-106); Osmolality,Calculated 287.5 MOS/KG (273-304); Potassium 3.6 MMOL/L (3.5-5.1); Sodium 139 MMOL/L (136-145); Total Protein 8.2 G/DL (6.4-8.3); Troponin I Only < 0.015 NG/ML (0.00-0.045)
[2017-10-26] MEDS ORDERED: ONDANSETRON 4 MG/2 ML VIAL IV PRN (13:34)
[2017-10-26] MEDS ORDERED: LEVOFLOXACIN INJ 500 MG in PREMIX 1 EACH IV STA (13:35)
[2017-10-26] MEDS ORDERED: SODIUM CHLORIDE 0.9% IV STA (14:22)
[2017-10-26] MEDS ORDERED: PHENYTOIN IV STA (14:22)
[2017-10-26] MEDS ORDERED: ALBUTEROL/IPRATROPIUM 3 ML NEB RESP TX PRN (15:22)
[2017-10-26] MEDS ORDERED: LEVOFLOXACIN INJ 500 MG in PREMIX 1 EACH IV SCH (15:30)
[2017-10-26] MEDS ORDERED: cloNIDine 0.2 MG/24 HR PATCH TRANSDERM SCH (15:30)
[2017-10-26] MEDS ORDERED: DEXTROSE 50% 25 GM/50 ML VIAL IV PRN (16:51)
[2017-10-26] MEDS ORDERED: GLUCAGON 1 MG VIAL IM PRN (16:51)
[2017-10-26] MEDS ORDERED: INSULIN REGULAR 100 UNIT/ML SUBCUT SCH (17:00)
[2017-10-26] MEDS: LACTULOSE 20 GM/30 ML UDCUP PEG SCH (17:16)
[2017-10-26] MEDS: WARFARIN 7.5 MG TABLET PEG SCH (18:19)
[2017-10-26] MEDS ORDERED: PHENYTOIN SODIUM PEG SCH (21:00)
[2017-10-26] MEDS: DOCUSATE SODIUM 100 MG/10 ML UDCUP PEG SCH (21:53)
[2017-10-26] MEDS: PHENYTOIN 100 MG/4 ML UDCUP PO SCH (21:55)
[2017-10-26] MEDS: NYSTATIN POWDER 15 GM BOTTLE TOP SCH (21:57)
[2017-10-26] MEDS: INSULIN LISPRO 100 UNIT/ML SUBCUT SCH (21:57)
[2017-10-26] MEDS: INSULIN GLARGINE 100 UNIT/ML SUBCUT SCH (21:58)
[2017-10-27 05:12] LABS: Basophils # 0.1 10*3/uL (0.0-0.2); Basophils % 0.6 % (0.0-0.8); Eosinophils # 0.4 10*3/uL (0.0-0.87); Eosinophils % 5.1 % (0.00-10.9); Hematocrit 33.5 VOL% (42.0-52.0); Hemoglobin 11.2 GM/DL (14.0-18.0); Immature Granulocytes % 0.5 %; Immature Granulocytes Absolute 0.04 #; Lymphocytes # 1.7 10*3/uL (1.4-4.0); Mean Corpuscular HGB Conc 33.4 GM/DL (32-36); Mean Corpuscular Hemoglobin 27 PG (27-34); Mean Corpuscular Volume 80.3 FL (87-102); Mean Platelet Volume 9.7 FL (9.6-12.0); Monocytes # 0.8 10*3/uL (0.11-0.8); Monocytes % 9.6 % (1.7-12.7); Neutrophils % 63.2 % (38.7-73.9); Platelet Count 271 T/CUMM (130-400); Red Blood Count 4.17 MC/CUMM (3.8-5.5); Red Cell Distribution Width 13.6 % (9.3-17.3); White Blood Count 7.9 T/CUMM (4-12)
[2017-10-27 05:24] LABS: INR 2.2; PT Patient Result 22.1 SECS
[2017-10-27 05:45] LABS: Osmolality,Calculated 285.3 MOS/KG (273-304); Potassium 3.5 MMOL/L (3.5-5.1)
[2017-10-27] MEDS: PANTOPRAZOLE 40 MG TABLET PO SCH (06:42)
[2017-10-27] MEDS: INSULIN LISPRO 100 UNIT/ML SUBCUT SCH ×4 (09:07→22:30)
[2017-10-27] MEDS: PHENYTOIN 100 MG/4 ML UDCUP PO SCH ×2 (09:55→22:29)
[2017-10-27] MEDS: LISINOPRIL 20 MG TABLET PEG SCH (09:56)
[2017-10-27] MEDS: SERTRALINE 25 MG TABLET PEG SCH (09:57)
[2017-10-27] MEDS: amLODIPine 10 MG TABLET PEG SCH (09:57)
[2017-10-27] MEDS: hydroCHLOROthiazide 25 MG TABLET PEG SCH (09:57)
[2017-10-27] MEDS: ATENOLOL 25 MG TABLET PEG SCH (09:57)
[2017-10-27] MEDS: SERTRALINE 50 MG TABLET PEG SCH (09:57)
[2017-10-27] MEDS: DOCUSATE SODIUM 100 MG/10 ML UDCUP PEG SCH ×2 (09:58→22:27)
[2017-10-27] MEDS: NYSTATIN POWDER 15 GM BOTTLE TOP SCH ×2 (09:58→22:31)
[2017-10-27] MEDS: LACTULOSE 20 GM/30 ML UDCUP PEG SCH (15:01)
[2017-10-27] MEDS: LEVOFLOXACIN INJ 500 MG in PREMIX 1 EACH IV SCH (16:37)
[2017-10-27] MEDS: WARFARIN 7.5 MG TABLET PEG SCH (17:12)
[2017-10-27] MEDS: INSULIN GLARGINE 100 UNIT/ML SUBCUT SCH (22:30)
[2017-10-28] MEDS: PANTOPRAZOLE 40 MG TABLET PO SCH (05:59)
[2017-10-28] MEDS: INSULIN LISPRO 100 UNIT/ML SUBCUT SCH ×4 (09:40→21:14)
[2017-10-28] MEDS: DOCUSATE SODIUM 100 MG/10 ML UDCUP PEG SCH ×2 (09:41→21:24)
[2017-10-28] MEDS: PHENYTOIN 100 MG/4 ML UDCUP PO SCH ×2 (09:41→21:24)
[2017-10-28] MEDS: SERTRALINE 50 MG TABLET PEG SCH (09:42)
[2017-10-28] MEDS: hydroCHLOROthiazide 25 MG TABLET PEG SCH (09:42)
[2017-10-28] MEDS: LISINOPRIL 20 MG TABLET PEG SCH (09:42)
[2017-10-28] MEDS: ATENOLOL 25 MG TABLET PEG SCH (09:44)
[2017-10-28] MEDS: SERTRALINE 25 MG TABLET PEG SCH (09:44)
[2017-10-28] MEDS: amLODIPine 10 MG TABLET PEG SCH (09:49)
[2017-10-28 10:06] LABS: Basophils % 0.5 % (0.0-0.8); Eosinophils # 0.3 10*3/uL (0.0-0.87); Eosinophils % 4.8 % (0.00-10.9); Hematocrit 31.6 VOL% (42.0-52.0); Hemoglobin 10.5 GM/DL (14.0-18.0); Immature Granulocytes % 0.5 %; Immature Granulocytes Absolute 0.03 #; Mean Corpuscular HGB Conc 33.2 GM/DL (32-36); Mean Corpuscular Hemoglobin 27 PG (27-34); Mean Corpuscular Volume 80.2 FL (87-102); Mean Platelet Volume 9.7 FL (9.6-12.0); Monocytes # 0.6 10*3/uL (0.11-0.8); Monocytes % 9.6 % (1.7-12.7); Neutrophils # 3.6 10*3/uL (1.4-7.4); Neutrophils % 54.6 % (38.7-73.9); Platelet Count 239 T/CUMM (130-400); Red Blood Count 3.94 MC/CUMM (3.8-5.5); Red Cell Distribution Width 13.6 % (9.3-17.3); White Blood Count 6.5 T/CUMM (4-12)
[2017-10-28 10:21] LABS: INR 3.2
[2017-10-28 10:28] LABS: Prealbumin 27.4 MG/DL (20-40)
[2017-10-28 10:29] LABS: PT Patient Result 32.6 SECS
[2017-10-28 10:31] LABS: Calcium 8.7 MG/DL (8.5-10.1); Osmolality,Calculated 286.8 MOS/KG (273-304); Potassium 3.9 MMOL/L (3.5-5.1)
[2017-10-28] MEDS: NYSTATIN POWDER 15 GM BOTTLE TOP SCH ×2 (11:23→21:24)
[2017-10-28] MEDS: LEVOFLOXACIN INJ 500 MG in PREMIX 1 EACH IV SCH (15:38)
[2017-10-28] MEDS: LACTULOSE 20 GM/30 ML UDCUP PEG SCH (17:13)
[2017-10-28] MEDS ORDERED: WARFARIN 7.5 MG TABLET PEG SCH (18:00)
[2017-10-28] MEDS: INSULIN GLARGINE 100 UNIT/ML SUBCUT SCH (21:15)
[2017-10-29] MEDS: PANTOPRAZOLE 40 MG TABLET PO SCH (06:15)
[2017-10-29 06:23] LABS: PT Patient Result 30.2 SECS
[2017-10-29] MEDS ORDERED: SKIN HEALING OINT (AQUAPHOR) 50 GM TUBE TOP PRN (09:40)
[2017-10-29] MEDS: hydroCHLOROthiazide 25 MG TABLET PEG SCH (10:05)
[2017-10-29] MEDS: ATENOLOL 25 MG TABLET PEG SCH (10:05)
[2017-10-29] MEDS: SERTRALINE 25 MG TABLET PEG SCH (10:05)
[2017-10-29] MEDS: DOCUSATE SODIUM 100 MG/10 ML UDCUP PEG SCH ×2 (10:06→21:03)
[2017-10-29] MEDS: INSULIN LISPRO 100 UNIT/ML SUBCUT SCH ×4 (10:06→21:28)
[2017-10-29] MEDS: LISINOPRIL 20 MG TABLET PEG SCH (10:06)
[2017-10-29] MEDS: amLODIPine 10 MG TABLET PEG SCH (10:06)
[2017-10-29] MEDS: PHENYTOIN 100 MG/4 ML UDCUP PO SCH ×2 (10:06→21:03)
[2017-10-29] MEDS: NYSTATIN POWDER 15 GM BOTTLE TOP SCH ×2 (10:33→21:22)
[2017-10-29] MEDS: SERTRALINE 50 MG TABLET PEG SCH (10:33)
[2017-10-29] MEDS: LEVOFLOXACIN INJ 500 MG in PREMIX 1 EACH IV SCH (13:36)
[2017-10-29] MEDS: LACTULOSE 20 GM/30 ML UDCUP PEG SCH (16:24)
[2017-10-29] MEDS: INSULIN GLARGINE 100 UNIT/ML SUBCUT SCH (21:04)
[2017-10-30] MEDS: PANTOPRAZOLE 40 MG TABLET PO SCH (07:10)
[2017-10-30] MEDS: PHENYTOIN 100 MG/4 ML UDCUP PO SCH (09:53)
[2017-10-30] MEDS: hydroCHLOROthiazide 25 MG TABLET PEG SCH (09:53)
[2017-10-30] MEDS: DOCUSATE SODIUM 100 MG/10 ML UDCUP PEG SCH (09:53)
[2017-10-30] MEDS: ATENOLOL 25 MG TABLET PEG SCH (09:53)
[2017-10-30] MEDS: SERTRALINE 50 MG TABLET PEG SCH (09:54)
[2017-10-30] MEDS: amLODIPine 10 MG TABLET PEG SCH (09:54)
[2017-10-30] MEDS: LISINOPRIL 20 MG TABLET PEG SCH (09:54)
[2017-10-30] MEDS: SERTRALINE 25 MG TABLET PEG SCH (09:54)
[2017-10-30] MEDS: INSULIN LISPRO 100 UNIT/ML SUBCUT SCH ×2 (10:03→11:54)
[2017-10-30] MEDS: NYSTATIN POWDER 15 GM BOTTLE TOP SCH (10:03)
[2017-10-30 10:52] LABS: Basophils # 0.1 10*3/uL (0.0-0.2); Basophils % 0.8 % (0.0-0.8); Eosinophils # 0.6 10*3/uL (0.0-0.87); Eosinophils % 7.3 % (0.00-10.9); Hematocrit 32.4 VOL% (42.0-52.0); Hemoglobin 10.8 GM/DL (14.0-18.0); Immature Granulocytes % 0.3 %; Immature Granulocytes Absolute 0.02 #; Lymphocytes # 2.3 10*3/uL (1.4-4.0); Lymphocytes % 30.1 % (21.2-54.2); Mean Corpuscular HGB Conc 33.3 GM/DL (32-36); Mean Corpuscular Hemoglobin 27 PG (27-34); Mean Corpuscular Volume 79.8 FL (87-102); Mean Platelet Volume 9.4 FL (9.6-12.0); Monocytes # 0.7 10*3/uL (0.11-0.8); Monocytes % 8.6 % (1.7-12.7); Neutrophils % 52.9 % (38.7-73.9); Platelet Count 247 T/CUMM (130-400); Red Blood Count 4.06 MC/CUMM (3.8-5.5); Red Cell Distribution Width 13.6 % (9.3-17.3); White Blood Count 7.5 T/CUMM (4-12)
[2017-10-30 11:05] LABS: INR 2.2
[2017-10-30 11:06] LABS: INR 2.2; PT Patient Result 22.7 SECS
[2017-10-30 11:06] LABS: PT Patient Result 22.7 SECS
[2017-10-30 11:24] LABS: Alanine Aminotransferase 25 U/L (16-61); Albumin 2.8 G/DL (3.4-5.0); Alkaline Phosphatase 79 U/L (45-117); Aspartate Amino Transferase 15 U/L (0-37); Bilirubin,Total < 0.39 MG/DL (0.2-1.0); Blood Urea Nitrogen 22 MG/DL (7-18); Calcium 8.8 MG/DL (8.5-10.1); Glucose 193 MG/DL (74-106); Osmolality,Calculated 280.8 MOS/KG (273-304); Potassium 3.5 MMOL/L (3.5-5.1); Sodium 137 MMOL/L (136-145); Total Protein 7.5 G/DL (6.4-8.3)
[2017-10-30] MEDS: LEVOFLOXACIN INJ 500 MG in PREMIX 1 EACH IV SCH (14:31)
[2017-10-30 16:29] VITALS: BP 158/79
[2017-10-30] MEDS: LACTULOSE 20 GM/30 ML UDCUP PEG SCH (16:45)
[2017-10-31] MEDS ORDERED: POTASSIUM CHLORIDE 10 MEQ TABLET PO SCH (09:00)
== END 2017-10-30 16:15 | DRG 690 ==
LOC: EDUNIT# → EDBD → N.ED 10:26 → N.EDINP 10:26 → N.2E 15:39
PROVIDERS: ADMIT Internal Medicine; ATTEND Internal Medicine

== ENCOUNTER 2018-03-02 08:40 | Inpatient (IN) ==
[2018-03-02] MEDS ORDERED: NALOXONE 0.4 MG/ML VIAL ONE (09:01)
[2018-03-02] MEDS ORDERED: NALOXONE 0.4 MG/ML VIAL IV STA (09:03)
[2018-03-02 09:44] LABS: Basophils % 0.2 % (0.0-0.8); Eosinophils % 0.1 % (0.00-10.9); Hematocrit 32.4 VOL% (42.0-52.0); Hemoglobin 10.2 GM/DL (14.0-18.0); Immature Granulocytes % 1.2 %; Immature Granulocytes Absolute 0.23 #; Lymphocytes # 1.3 10*3/uL (1.4-4.0); Lymphocytes % 6.6 % (21.2-54.2); Mean Corpuscular HGB Conc 31.5 GM/DL (32-36); Mean Corpuscular Hemoglobin 27 PG (27-34); Mean Corpuscular Volume 84.6 FL (87-102); Monocytes # 1.9 10*3/uL (0.11-0.8); Monocytes % 9.4 % (1.7-12.7); Neutrophils # 16.3 10*3/uL (1.4-7.4); Neutrophils % 82.5 % (38.7-73.9); Platelet Count 203 T/CUMM (130-400); Red Blood Count 3.83 MC/CUMM (3.8-5.5); Red Cell Distribution Width 13.2 % (9.3-17.3); White Blood Count 19.7 T/CUMM (4-12)
[2018-03-02 09:54] LABS: INR 1.7; PT Patient Result 17.4 SECS
[2018-03-02 10:09] LABS: Alanine Aminotransferase 15 U/L (16-61); Albumin 3.1 G/DL (3.4-5.0); Alkaline Phosphatase 93 U/L (45-117); Aspartate Amino Transferase 14 U/L (0-37); Bilirubin,Total < 0.39 MG/DL (0.2-1.0); Blood Urea Nitrogen 32 MG/DL (7-18); Calcium 8.5 MG/DL (8.5-10.1); Glucose 290 MG/DL (74-106); Osmolality,Calculated 290.8 MOS/KG (273-304); Potassium 4.2 MMOL/L (3.5-5.1); Sodium 137 MMOL/L (136-145); Total Protein 8.1 G/DL (6.4-8.3)
[2018-03-02] MEDS ORDERED: SODIUM CHLORIDE 0.9% 500 ML IV STA (10:15)
[2018-03-02 10:17] LABS: Apearance,Urine Clear (Clear); Bilirubin,Urine 2+ mg/dL (Negative); Blood, Urine Negative (Negative); Glucose,Urine (UA) Negative (Negative); Ketones,Urine Negative (Negative); Nitrite,Urine Negative (Negative); Protein,Urine >500 MG/DL; RBC,Urine 0-5 /HPF (0-4); Urine Color Yellow (Yellow); Urine Urobilinogen 0.2 EU/DL (0.2-1.0)
[2018-03-02 10:18] LABS: Amorphous Crystals,Urine Few /HPF (Few); Bacteria,Urine Few /HPF (Few); Triple Phosphate Crystal,Urine Moderate /HPF (Few)
[2018-03-02] MEDS ORDERED: ONDANSETRON 4 MG/2 ML VIAL IV PRN (11:01)
[2018-03-02] MEDS: SODIUM CHLORIDE 0.9% 1,000 ML IV SCH ×2 (12:30→20:36)
[2018-03-02] MEDS: LEVOFLOXACIN INJ 500 MG in PREMIX 1 EACH IV SCH (15:49)
[2018-03-02] MEDS ORDERED: GLUCAGON 1 MG VIAL IM PRN (16:37)
[2018-03-02] MEDS ORDERED: DEXTROSE 50% 25 GM/50 ML VIAL IV PRN (16:37)
[2018-03-02] MEDS ORDERED: ALBUTEROL/IPRATROPIUM 3 ML NEB RESP TX PRN (16:38)
[2018-03-02] MEDS: PHENYTOIN 100 MG/2 ML VIAL IV SCH (17:14)
[2018-03-02] MEDS: WARFARIN 5 MG TABLET PO SCH (18:19)
[2018-03-02] MEDS: INSULIN REGULAR 100 UNIT/ML SUBCUT SCH (20:33)
[2018-03-02] MEDS: DOCUSATE SODIUM 100 MG CAPSULE PO SCH (20:34)
[2018-03-02] MEDS ORDERED: PHENYTOIN ER 100 MG CAPSULE PO SCH (21:00)
[2018-03-02] MEDS ORDERED: SODIUM CHLORIDE 0.9% 500 ML IV ONE (22:51)
[2018-03-03] MEDS: PHENYTOIN 100 MG/2 ML VIAL IV SCH ×3 (01:56→16:27)
[2018-03-03] MEDS: SODIUM CHLORIDE 0.9% 1,000 ML IV SCH ×3 (04:31→16:59)
[2018-03-03 05:32] LABS: INR 1.6; PT Patient Result 16.6 SECS
[2018-03-03] MEDS ORDERED: SODIUM CHLORIDE 0.9% 500 ML IV ONE (05:33)
[2018-03-03 05:45] LABS: Basophils % 0.2 % (0.0-0.8); Eosinophils # 0.1 10*3/uL (0.0-0.87); Eosinophils % 0.6 % (0.00-10.9); Hematocrit 26.6 VOL% (42.0-52.0); Immature Granulocytes % 0.6 %; Lymphocytes % 12.6 % (21.2-54.2); Mean Corpuscular HGB Conc 31.2 GM/DL (32-36); Mean Corpuscular Hemoglobin 26 PG (27-34); Mean Corpuscular Volume 84.7 FL (87-102); Mean Platelet Volume 10.4 FL (9.6-12.0); Monocytes # 1.3 10*3/uL (0.11-0.8); Monocytes % 8.3 % (1.7-12.7); Neutrophils # 12.1 10*3/uL (1.4-7.4); Neutrophils % 77.7 % (38.7-73.9); Platelet Count 171 T/CUMM (130-400); Red Blood Count 3.14 MC/CUMM (3.8-5.5); Red Cell Distribution Width 13.1 % (9.3-17.3); White Blood Count 15.5 T/CUMM (4-12)
[2018-03-03 05:46] LABS: Hemoglobin 8.3 GM/DL (14.0-18.0)
[2018-03-03 06:09] LABS: Alanine Aminotransferase 13 U/L (16-61); Albumin 2.3 G/DL (3.4-5.0); Alkaline Phosphatase 71 U/L (45-117); Aspartate Amino Transferase 16 U/L (0-37); Bilirubin,Total < 0.39 MG/DL (0.2-1.0); Blood Urea Nitrogen 35 MG/DL (7-18); Calcium 7.6 MG/DL (8.5-10.1); Glucose 182 MG/DL (74-106); Osmolality,Calculated 293.3 MOS/KG (273-304); Potassium 3.9 MMOL/L (3.5-5.1); Sodium 141 MMOL/L (136-145); Total Protein 6.5 G/DL (6.4-8.3)
[2018-03-03] MEDS: INSULIN REGULAR 100 UNIT/ML SUBCUT SCH ×4 (07:30→21:00)
[2018-03-03] MEDS ORDERED: CYANOCOBALAMIN 1000 MCG/1 ML VIAL IM ONE (08:30)
[2018-03-03] MEDS ORDERED: INSULIN GLARGINE 100 UNIT/ML SUBCUT SCH (09:00)
[2018-03-03] MEDS ORDERED: DOCUSATE SODIUM 100 MG CAPSULE PO SCH (09:00)
[2018-03-03] MEDS: DOCUSATE SODIUM 100 MG CAPSULE PO SCH (09:19)
[2018-03-03] MEDS: ENOXAPARIN 40 MG/0.4 ML SYRINGE SUBCUT SCH (09:19)
[2018-03-03] MEDS: SERTRALINE 100 MG TABLET PO SCH (09:20)
[2018-03-03] MEDS: PANTOPRAZOLE 40 MG TABLET PO SCH (09:20)
[2018-03-03 11:08] LABS: Basophils % 0.2 % (0.0-0.8); Eosinophils # 0.1 10*3/uL (0.0-0.87); Eosinophils % 0.6 % (0.00-10.9); Hemoglobin 8.8 GM/DL (14.0-18.0); Immature Granulocytes % 0.6 %; Lymphocytes # 2.1 10*3/uL (1.4-4.0); Lymphocytes % 13.4 % (21.2-54.2); Mean Corpuscular HGB Conc 31.4 GM/DL (32-36); Mean Corpuscular Hemoglobin 27 PG (27-34); Mean Corpuscular Volume 84.3 FL (87-102); Mean Platelet Volume 10.2 FL (9.6-12.0); Monocytes # 1.1 10*3/uL (0.11-0.8); Monocytes % 6.9 % (1.7-12.7); Neutrophils # 12.3 10*3/uL (1.4-7.4); Neutrophils % 78.3 % (38.7-73.9); Red Blood Count 3.32 MC/CUMM (3.8-5.5); White Blood Count 15.7 T/CUMM (4-12)
[2018-03-03 11:09] LABS: Platelet Count 173 T/CUMM (130-400)
[2018-03-03] MEDS: LEVOFLOXACIN INJ 500 MG in PREMIX 1 EACH IV SCH (15:00)
[2018-03-03] MEDS ORDERED: INSULIN GLARGINE 100 UNIT/ML SUBCUT ONE (15:08)
[2018-03-03] MEDS ORDERED: DOCUSATE SODIUM 100 MG CAPSULE PO PRN (15:13)
[2018-03-03] MEDS: ATENOLOL 25 MG TABLET PO SCH (16:26)
[2018-03-03] MEDS: LISINOPRIL 20 MG TABLET PO SCH (16:27)
[2018-03-03] MEDS: WARFARIN 2.5 MG TABLET PO SCH (17:44)
[2018-03-03] MEDS: ACETAMINOPHEN 325 MG TABLET PO PRN (23:18)
[2018-03-04] MEDS: SODIUM CHLORIDE 0.9% 1,000 ML IV SCH ×2 (01:12→15:01)
[2018-03-04] MEDS: PHENYTOIN 100 MG/2 ML VIAL IV SCH ×3 (01:12→18:50)
[2018-03-04 06:42] LABS: INR 3.3
[2018-03-04 06:46] LABS: PT Patient Result 32.9 SECS
[2018-03-04 07:00] LABS: Calcium 8.1 MG/DL (8.5-10.1); Osmolality,Calculated 286.4 MOS/KG (273-304); Potassium 3.7 MMOL/L (3.5-5.1)
[2018-03-04 07:32] LABS: Basophils % 0.3 % (0.0-0.8); Eosinophils # 0.1 10*3/uL (0.0-0.87); Eosinophils % 0.8 % (0.00-10.9); Hematocrit 27.3 VOL% (42.0-52.0); Hemoglobin 8.5 GM/DL (14.0-18.0); Immature Granulocytes % 0.5 %; Immature Granulocytes Absolute 0.06 #; Lymphocytes # 1.6 10*3/uL (1.4-4.0); Lymphocytes % 14.4 % (21.2-54.2); Mean Corpuscular HGB Conc 31.1 GM/DL (32-36); Mean Corpuscular Hemoglobin 26 PG (27-34); Mean Corpuscular Volume 84.5 FL (87-102); Monocytes % 8.7 % (1.7-12.7); Neutrophils # 8.4 10*3/uL (1.4-7.4); Neutrophils % 75.3 % (38.7-73.9); Platelet Count 190 T/CUMM (130-400); Red Blood Count 3.23 MC/CUMM (3.8-5.5); Red Cell Distribution Width 12.9 % (9.3-17.3); White Blood Count 11.1 T/CUMM (4-12)
[2018-03-04] MEDS: SERTRALINE 100 MG TABLET PO SCH (09:00)
[2018-03-04] MEDS: INSULIN REGULAR 100 UNIT/ML SUBCUT SCH ×4 (09:34→22:02)
[2018-03-04] MEDS: INSULIN GLARGINE 100 UNIT/ML SUBCUT SCH (09:34)
[2018-03-04] MEDS: PANTOPRAZOLE 40 MG TABLET PO SCH (09:36)
[2018-03-04] MEDS: ENOXAPARIN 40 MG/0.4 ML SYRINGE SUBCUT SCH (09:36)
[2018-03-04] MEDS: LISINOPRIL 20 MG TABLET PO SCH (09:38)
[2018-03-04] MEDS: ATENOLOL 25 MG TABLET PO SCH (09:38)
[2018-03-04] MEDS: LEVOFLOXACIN INJ 500 MG in PREMIX 1 EACH IV SCH (15:01)
[2018-03-04] MEDS: WARFARIN 5 MG TABLET PO SCH (17:42)
[2018-03-05] MEDS: SODIUM CHLORIDE 0.9% 1,000 ML IV SCH (00:59)
[2018-03-05] MEDS: ACETAMINOPHEN 325 MG TABLET PO PRN (01:10)
[2018-03-05] MEDS: PHENYTOIN ER 100 MG CAPSULE PO SCH ×4 (01:10→21:19)
[2018-03-05 04:11] LABS: Basophils % 0.2 % (0.0-0.8); Eosinophils % 0.3 % (0.00-10.9); Hemoglobin 8.9 GM/DL (14.0-18.0); Immature Granulocytes Absolute 0.12 #; Lymphocytes # 1.3 10*3/uL (1.4-4.0); Lymphocytes % 10.6 % (21.2-54.2); Mean Corpuscular HGB Conc 31.8 GM/DL (32-36); Mean Corpuscular Hemoglobin 26 PG (27-34); Mean Corpuscular Volume 82.4 FL (87-102); Mean Platelet Volume 9.6 FL (9.6-12.0); Monocytes % 8.5 % (1.7-12.7); Neutrophils # 9.4 10*3/uL (1.4-7.4); Neutrophils % 79.4 % (38.7-73.9); Platelet Count 191 T/CUMM (130-400); Red Cell Distribution Width 12.6 % (9.3-17.3); White Blood Count 11.8 T/CUMM (4-12)
[2018-03-05 04:26] LABS: INR 1.7; PT Patient Result 17.8 SECS
[2018-03-05 04:37] LABS: Osmolality,Calculated 284.3 MOS/KG (273-304); Potassium 3.4 MMOL/L (3.5-5.1)
[2018-03-05] MEDS ORDERED: LEVOFLOXACIN 500 MG TABLET PO SCH (09:00)
[2018-03-05] MEDS: LISINOPRIL 20 MG TABLET PO SCH (09:04)
[2018-03-05] MEDS: PANTOPRAZOLE 40 MG TABLET PO SCH (09:04)
[2018-03-05] MEDS: ATENOLOL 25 MG TABLET PO SCH (09:05)
[2018-03-05] MEDS: SERTRALINE 100 MG TABLET PO SCH (09:05)
[2018-03-05] MEDS: ENOXAPARIN 40 MG/0.4 ML SYRINGE SUBCUT SCH (09:06)
[2018-03-05] MEDS: INSULIN REGULAR 100 UNIT/ML SUBCUT SCH ×4 (09:06→21:19)
[2018-03-05] MEDS: INSULIN GLARGINE 100 UNIT/ML SUBCUT SCH (09:06)
[2018-03-05] MEDS ORDERED: ONDANSETRON 4 MG TABLET PO PRN (10:40)
[2018-03-05] MEDS ORDERED: LABETALOL 100 MG TABLET PO ONE (10:45)
[2018-03-05] MEDS ORDERED: ASPIRIN CHEW 81 MG TABLET PO ONE (11:10)
[2018-03-05] MEDS ORDERED: NITROGLYCERIN SL 0.4 MG TABLET SL ONE ×2 (11:11→11:30)
[2018-03-05] MEDS ORDERED: POTASSIUM CHLORIDE 20 MEQ TABLET PO PRN (11:17)
[2018-03-05] MEDS ORDERED: POTASSIUM CHLORIDE 20 MEQ TABLET PO ONE (11:17)
[2018-03-05] MEDS ORDERED: ASPIRIN CHEW 81 MG TABLET PO STA (11:35)
[2018-03-05] MEDS: GENTAMICIN INJ 160 MG in SODIUM CHLORIDE 0.9% 100 ML IV SCH ×2 (13:33→21:24)
[2018-03-05] MEDS: WARFARIN 5 MG TABLET PO SCH (18:30)
[2018-03-06] MEDS: GENTAMICIN INJ 160 MG in SODIUM CHLORIDE 0.9% 100 ML IV SCH ×2 (04:12→13:03)
[2018-03-06 04:21] LABS: Basophils % 0.2 % (0.0-0.8); Eosinophils # 0.1 10*3/uL (0.0-0.87); Eosinophils % 0.4 % (0.00-10.9); Hematocrit 27.3 VOL% (42.0-52.0); Hemoglobin 8.6 GM/DL (14.0-18.0); Immature Granulocytes % 0.4 %; Immature Granulocytes Absolute 0.05 #; Lymphocytes # 1.5 10*3/uL (1.4-4.0); Lymphocytes % 12.2 % (21.2-54.2); Mean Corpuscular HGB Conc 31.5 GM/DL (32-36); Mean Corpuscular Hemoglobin 26 PG (27-34); Mean Corpuscular Volume 82.2 FL (87-102); Mean Platelet Volume 9.6 FL (9.6-12.0); Monocytes # 1.4 10*3/uL (0.11-0.8); Monocytes % 11.2 % (1.7-12.7); Neutrophils # 9.1 10*3/uL (1.4-7.4); Neutrophils % 75.6 % (38.7-73.9); Platelet Count 191 T/CUMM (130-400); Red Blood Count 3.32 MC/CUMM (3.8-5.5); Red Cell Distribution Width 12.5 % (9.3-17.3); White Blood Count 12.1 T/CUMM (4-12)
[2018-03-06 04:26] LABS: INR 1.9; PT Patient Result 19.5 SECS
[2018-03-06 04:37] LABS: Calcium 8.2 MG/DL (8.5-10.1); Osmolality,Calculated 285.4 MOS/KG (273-304); Potassium 4.1 MMOL/L (3.5-5.1)
[2018-03-06] MEDS: ATENOLOL 25 MG TABLET PO SCH (10:29)
[2018-03-06] MEDS: LISINOPRIL 20 MG TABLET PO SCH (10:29)
[2018-03-06] MEDS: INSULIN GLARGINE 100 UNIT/ML SUBCUT SCH (10:29)
[2018-03-06] MEDS: PHENYTOIN ER 100 MG CAPSULE PO SCH ×3 (10:29→20:28)
[2018-03-06] MEDS: PANTOPRAZOLE 40 MG TABLET PO SCH (10:29)
[2018-03-06] MEDS: ENOXAPARIN 40 MG/0.4 ML SYRINGE SUBCUT SCH (10:31)
[2018-03-06] MEDS: SERTRALINE 100 MG TABLET PO SCH (10:31)
[2018-03-06] MEDS: INSULIN REGULAR 100 UNIT/ML SUBCUT SCH ×4 (10:43→21:03)
[2018-03-06] MEDS: WARFARIN 2.5 MG TABLET PO SCH (18:10)
[2018-03-06] MEDS ORDERED: hydrALAZINE 20 MG/1 ML VIAL IV PRN (21:08)
[2018-03-06] MEDS: ACETAMINOPHEN 325 MG TABLET PO PRN (23:21)
[2018-03-07] MEDS: GENTAMICIN INJ 160 MG in SODIUM CHLORIDE 0.9% 100 ML IV SCH (03:48)
[2018-03-07] MEDS: INSULIN REGULAR 100 UNIT/ML SUBCUT SCH ×4 (08:45→21:17)
[2018-03-07] MEDS: INSULIN GLARGINE 100 UNIT/ML SUBCUT SCH (08:46)
[2018-03-07] MEDS: ENOXAPARIN 40 MG/0.4 ML SYRINGE SUBCUT SCH (08:46)
[2018-03-07] MEDS: ATENOLOL 25 MG TABLET PO SCH (08:46)
[2018-03-07] MEDS: LISINOPRIL 10 MG TABLET PO SCH (08:46)
[2018-03-07] MEDS: PHENYTOIN ER 100 MG CAPSULE PO SCH ×3 (08:47→21:15)
[2018-03-07] MEDS: SERTRALINE 100 MG TABLET PO SCH (08:47)
[2018-03-07] MEDS: hydrALAZINE 25 MG TABLET PO SCH ×4 (08:47→21:15)
[2018-03-07] MEDS: PANTOPRAZOLE 40 MG TABLET PO SCH (08:47)
[2018-03-07 10:07] LABS: INR 2.4
[2018-03-07 10:11] LABS: PT Patient Result 24.1 SECS
[2018-03-07 10:14] LABS: Albumin 2.7 G/DL (3.4-5.0); Bilirubin,Total 0.4 MG/DL (0.2-1.0); Calcium 8.5 MG/DL (8.5-10.1); Osmolality,Calculated 279.8 MOS/KG (273-304); Potassium 3.8 MMOL/L (3.5-5.1); Total Protein 7.4 G/DL (6.4-8.3)
[2018-03-07] MEDS: WARFARIN 5 MG TABLET PO SCH (17:25)
[2018-03-07] MEDS: CEFUROXIME 250 MG TABLET PO SCH (21:16)
[2018-03-08 00:20] LABS: Apearance,Urine CLOUDY (Clear); Bacteria,Urine Occasional /HPF (Few); Bilirubin,Urine Negative (Negative); Blood, Urine Small mg/dL (Negative); Glucose,Urine (UA) Negative (Negative); Ketones,Urine Negative (Negative); Mucus,Urine Occasional /LPF (Occasional); Nitrite,Urine Negative (Negative); Protein,Urine 100 MG/DL; RBC,Urine 28 /HPF (0-4); Squamous Epithelial Cell,Urine Occasional /HPF (0-10); Urine Color Yellow (Yellow); Urine Specific Gravity 1.011 (1.001-1.035); Urine Urobilinogen < 2.0 EU/DL (0.2-1.0); WBC,Urine 166 /HPF (0-6)
[2018-03-08] MEDS: GENTAMICIN INJ 160 MG in SODIUM CHLORIDE 0.9% 100 ML IV SCH (04:30)
[2018-03-08 05:48] LABS: INR 2.4
[2018-03-08 05:49] LABS: PT Patient Result 24.2 SECS
[2018-03-08 07:12] LABS: Basophils % 0.3 % (0.0-0.8); Eosinophils # 0.1 10*3/uL (0.0-0.87); Eosinophils % 0.7 % (0.00-10.9); Hematocrit 28.7 VOL% (42.0-52.0); Hemoglobin 9.4 GM/DL (14.0-18.0); Immature Granulocytes % 0.8 %; Immature Granulocytes Absolute 0.08 #; Lymphocytes # 2.1 10*3/uL (1.4-4.0); Lymphocytes % 20.8 % (21.2-54.2); Mean Corpuscular HGB Conc 32.8 GM/DL (32-36); Mean Corpuscular Hemoglobin 27 PG (27-34); Mean Corpuscular Volume 81.5 FL (87-102); Mean Platelet Volume 10.2 FL (9.6-12.0); Monocytes # 1.1 10*3/uL (0.11-0.8); Monocytes % 11.1 % (1.7-12.7); Neutrophils # 6.7 10*3/uL (1.4-7.4); Neutrophils % 66.3 % (38.7-73.9); Platelet Count 273 T/CUMM (130-400); Red Blood Count 3.52 MC/CUMM (3.8-5.5); Red Cell Distribution Width 12.5 % (9.3-17.3); White Blood Count 10.1 T/CUMM (4-12)
[2018-03-08 07:20] LABS: Calcium 8.4 MG/DL (8.5-10.1); Osmolality,Calculated 280.5 MOS/KG (273-304); Potassium 3.5 MMOL/L (3.5-5.1)
[2018-03-08] MEDS: INSULIN REGULAR 100 UNIT/ML SUBCUT SCH ×3 (07:46→17:40)
[2018-03-08] MEDS: PHENYTOIN ER 100 MG CAPSULE PO SCH ×2 (08:19→14:21)
[2018-03-08] MEDS: PANTOPRAZOLE 40 MG TABLET PO SCH (08:19)
[2018-03-08] MEDS: CEFUROXIME 250 MG TABLET PO SCH (08:19)
[2018-03-08] MEDS: LISINOPRIL 10 MG TABLET PO SCH (08:19)
[2018-03-08] MEDS: SERTRALINE 100 MG TABLET PO SCH (08:20)
[2018-03-08] MEDS: hydrALAZINE 25 MG TABLET PO SCH ×3 (08:20→17:40)
[2018-03-08] MEDS: ATENOLOL 25 MG TABLET PO SCH (08:20)
[2018-03-08] MEDS: INSULIN GLARGINE 100 UNIT/ML SUBCUT SCH (08:45)
[2018-03-08] MEDS: ENOXAPARIN 40 MG/0.4 ML SYRINGE SUBCUT SCH (08:45)
[2018-03-08] MEDS ORDERED: FLUCONAZOLE 100 MG TABLET PO SCH (09:00)
[2018-03-08] MEDS ORDERED: cefTRIAXone 2,000 MG in SYRINGE 1 EACH IV SCH (13:00)
[2018-03-08] MEDS ORDERED: LEVOFLOXACIN 750 MG TABLET PO SCH (13:00)
[2018-03-08 15:58] VITALS: BP 160/80
[2018-03-08] MEDS: WARFARIN 2.5 MG TABLET PO SCH (17:40)
== END 2018-03-08 18:46 | DRG 871 ==
LOC: EDUNIT# → EDBD → N.ED 08:40 → N.EDINP 10:58 → N.ICU 11:41 → N.2E 03-03 17:02
PROVIDERS: ADMIT Internal Medicine; ATTEND Internal Medicine

== ENCOUNTER 2018-07-14 17:48 | Inpatient (IN) ==
[2018-07-14] MEDS ORDERED: PANTOPRAZOLE INJ 80 MG in SODIUM CHLORIDE 0.9% 100 ML IV STA (18:28)
[2018-07-14 19:25] LABS: Basophils % 0.5 % (0.0-0.8); Eosinophils # 0.6 10*3/uL (0.0-0.87); Eosinophils % 7.6 % (0.00-10.9); Hematocrit 26.5 VOL% (42.0-52.0); Hemoglobin 8.2 GM/DL (14.0-18.0); Immature Granulocytes % 0.2 %; Immature Granulocytes Absolute 0.02 #; Lymphocytes # 2.4 10*3/uL (1.4-4.0); Lymphocytes % 28.1 % (21.2-54.2); Mean Corpuscular HGB Conc 30.9 GM/DL (32-36); Mean Corpuscular Hemoglobin 25 PG (27-34); Mean Corpuscular Volume 81.8 FL (87-102); Mean Platelet Volume 10.2 FL (9.6-12.0); Monocytes # 0.9 10*3/uL (0.11-0.8); Monocytes % 10.6 % (1.7-12.7); Neutrophils # 4.5 10*3/uL (1.4-7.4); Platelet Count 241 T/CUMM (130-400); Red Blood Count 3.24 MC/CUMM (3.8-5.5); Red Cell Distribution Width 14.8 % (9.3-17.3); White Blood Count 8.4 T/CUMM (4-12)
[2018-07-14 19:41] LABS: Alanine Aminotransferase 13 U/L (16-61); Albumin 2.8 G/DL (3.4-5.0); Alkaline Phosphatase 107 U/L (45-117); Aspartate Amino Transferase 15 U/L (0-37); Bilirubin,Total < 0.39 MG/DL (0.2-1.0); Blood Urea Nitrogen 30 MG/DL (7-18); Glucose 116 MG/DL (74-106); Potassium 4.5 MMOL/L (3.5-5.1); Sodium 136 MMOL/L (136-145); Total Protein 7.5 G/DL (6.4-8.3)
[2018-07-14 19:52] LABS: INR 2.3; Partial Thromboplastin Time 37.7 SECS (0-40)
[2018-07-14 19:53] LABS: PT Patient Result 24.8 SECS
[2018-07-14] MEDS ORDERED: PANTOPRAZOLE 40 MG VIAL IV ONE (20:01)
[2018-07-14] MEDS ORDERED: ACETAMINOPHEN 325 MG TABLET PO PRN (20:16)
[2018-07-14] MEDS ORDERED: ONDANSETRON 4 MG/2 ML VIAL IV PRN (20:16)
[2018-07-14] MEDS: PANTOPRAZOLE INJ 200 MG in SODIUM CHLORIDE 0.9% 250 ML IV SCH ×2 (22:20→23:30)
[2018-07-15 05:55] LABS: Basophils % 0.5 % (0.0-0.8); Eosinophils # 0.6 10*3/uL (0.0-0.87); Eosinophils % 7.3 % (0.00-10.9); Hemoglobin 7.3 GM/DL (14.0-18.0); Immature Granulocytes % 0.1 %; Immature Granulocytes Absolute 0.01 #; Lymphocytes # 2.8 10*3/uL (1.4-4.0); Lymphocytes % 34.5 % (21.2-54.2); Mean Corpuscular HGB Conc 30.4 GM/DL (32-36); Mean Corpuscular Hemoglobin 25 PG (27-34); Mean Corpuscular Volume 82.5 FL (87-102); Mean Platelet Volume 10.5 FL (9.6-12.0); Monocytes # 0.8 10*3/uL (0.11-0.8); Monocytes % 9.7 % (1.7-12.7); Neutrophils # 3.8 10*3/uL (1.4-7.4); Neutrophils % 47.9 % (38.7-73.9); Platelet Count 232 T/CUMM (130-400); Red Blood Count 2.91 MC/CUMM (3.8-5.5); Red Cell Distribution Width 14.6 % (9.3-17.3)
[2018-07-15 06:12] LABS: Albumin 2.6 G/DL (3.4-5.0); Bilirubin,Total 0.4 MG/DL (0.2-1.0); Calcium 7.9 MG/DL (8.5-10.1); Osmolality,Calculated 286.7 MOS/KG (273-304); Potassium 4.5 MMOL/L (3.5-5.1); Total Protein 6.6 G/DL (6.4-8.3)
[2018-07-15] MEDS ORDERED: PANTOPRAZOLE 40 MG VIAL IV SCH (09:00)
[2018-07-15] MEDS ORDERED: SODIUM CHLORIDE 0.9% 1,000 ML IV PRN (09:25)
[2018-07-15] MEDS ORDERED: ACETAMINOPHEN 325 MG TABLET PO PRN (10:25)
[2018-07-15] MEDS ORDERED: PHYTONADIONE INJ 2.5 MG in SODIUM CHLORIDE 0.9% 25 ML IV ONE (11:00)
[2018-07-15 11:01] LABS: Phenytoin (Dilantin) 12.4 UG/ML (10-20)
[2018-07-15] MEDS: INSULIN REGULAR 100 UNIT/ML SUBCUT SCH ×3 (13:03→21:51)
[2018-07-15] MEDS: DIVALPROEX 250 MG TABLET PO SCH ×2 (15:29→20:30)
[2018-07-15] MEDS: PHENYTOIN ER 100 MG CAPSULE PO SCH ×2 (15:29→22:33)
[2018-07-15] MEDS: ALBUTEROL/IPRATROPIUM 3 ML NEB RESP TX SCH (19:50)
[2018-07-15 20:16] LABS: Amorphous Crystals,Urine Occasional /HPF (Few); Apearance,Urine CLOUDY (Clear); Bilirubin,Urine Negative (Negative); Blood, Urine Negative (Negative); Glucose,Urine (UA) Negative (Negative); Ketones,Urine Negative (Negative); Mucus,Urine Occasional /LPF (Occasional); Nitrite,Urine Negative (Negative); Protein,Urine 100 MG/DL; Squamous Epithelial Cell,Urine Occasional /HPF (0-10); Triple Phosphate Crystal,Urine Occasional /HPF (Few); Urine Color Yellow (Yellow); Urine Specific Gravity 1.019 (1.001-1.035); Urine Urobilinogen < 2.0 EU/DL (0.2-1.0); WBC,Urine 1 /HPF (0-6)
[2018-07-15] MEDS: PHENYTOIN 100 MG/4 ML UDCUP PO SCH (20:31)
[2018-07-15] MEDS: CARBOXYMETHYLCELLULOSE 1% OPH SOLN LEFT EYE SCH (20:35)
[2018-07-15] MEDS: tiZANidine 4 MG TABLET PO SCH (20:35)
[2018-07-15] MEDS ORDERED: LACTULOSE 20 GM/30 ML UDCUP PO SCH (21:00)
[2018-07-16] MEDS: PHENYTOIN ER 100 MG CAPSULE PO SCH ×3 (06:20→22:51)
[2018-07-16 07:09] LABS: Basophils # 0.1 10*3/uL (0.0-0.2); Basophils % 0.6 % (0.0-0.8); Eosinophils # 0.6 10*3/uL (0.0-0.87); Eosinophils % 6.7 % (0.00-10.9); Hematocrit 31.4 VOL% (42.0-52.0); Immature Granulocytes % 0.2 %; Immature Granulocytes Absolute 0.02 #; Lymphocytes % 23.4 % (21.2-54.2); Mean Corpuscular HGB Conc 31.5 GM/DL (32-36); Mean Corpuscular Hemoglobin 26 PG (27-34); Mean Corpuscular Volume 83.7 FL (87-102); Monocytes # 0.8 10*3/uL (0.11-0.8); Monocytes % 9.4 % (1.7-12.7); Neutrophils % 59.7 % (38.7-73.9); Platelet Count 222 T/CUMM (130-400); Red Cell Distribution Width 14.4 % (9.3-17.3); White Blood Count 8.4 T/CUMM (4-12)
[2018-07-16 07:11] LABS: Hemoglobin 9.9 GM/DL (14.0-18.0); Red Blood Count 3.75 MC/CUMM (3.8-5.5)
[2018-07-16 07:16] LABS: INR 1.3; PT Patient Result 13.8 SECS
[2018-07-16] MEDS: ALBUTEROL/IPRATROPIUM 3 ML NEB RESP TX SCH ×2 (07:22→19:16)
[2018-07-16 07:30] LABS: Calcium 8.3 MG/DL (8.5-10.1); Ferritin 9.3 ng/ml (26-388); Osmolality,Calculated 287.5 MOS/KG (273-304); Potassium 4.2 MMOL/L (3.5-5.1); Thyroid Stimulating Hormone 8.46 uIU/ml (0.358-3.74)
[2018-07-16] MEDS: INSULIN REGULAR 100 UNIT/ML SUBCUT SCH ×4 (09:51→21:27)
[2018-07-16] MEDS: SERTRALINE 100 MG TABLET PO SCH (09:52)
[2018-07-16] MEDS: FUROSEMIDE 40 MG TABLET PO SCH (09:52)
[2018-07-16] MEDS: ATENOLOL 50 MG TABLET PO SCH (09:52)
[2018-07-16] MEDS: ALLOPURINOL 300 MG TABLET PO SCH (09:52)
[2018-07-16] MEDS: FOLIC ACID 1 MG TABLET PO SCH (09:52)
[2018-07-16] MEDS: POTASSIUM CHLORIDE 10 MEQ TABLET PO SCH (09:53)
[2018-07-16] MEDS: BISACODYL 5 MG TABLET PO SCH ×2 (09:53→16:43)
[2018-07-16] MEDS: amLODIPine 10 MG TABLET PO SCH (09:53)
[2018-07-16] MEDS: PANTOPRAZOLE 40 MG TABLET PO SCH ×2 (09:53→16:43)
[2018-07-16] MEDS: DIVALPROEX 250 MG TABLET PO SCH ×3 (09:53→21:26)
[2018-07-16] MEDS: LISINOPRIL 10 MG TABLET PO SCH (09:55)
[2018-07-16] MEDS: CARBOXYMETHYLCELLULOSE 1% OPH SOLN LEFT EYE SCH ×2 (09:55→21:27)
[2018-07-16] MEDS: tiZANidine 4 MG TABLET PO SCH ×2 (10:01→21:26)
[2018-07-16] MEDS ORDERED: POLYETHYLENE GLYCOL POWDER 255 GM BOTTLE PO ONE (18:00)
[2018-07-16] MEDS: PHENYTOIN 100 MG/4 ML UDCUP PO SCH (21:26)
[2018-07-17] MEDS: BISACODYL 5 MG TABLET PO SCH (01:15)
[2018-07-17] MEDS ORDERED: BISACODYL 5 MG TABLET PO SCH (01:30)
[2018-07-17 05:50] LABS: Basophils % 0.5 % (0.0-0.8); Eosinophils # 0.6 10*3/uL (0.0-0.87); Eosinophils % 7.4 % (0.00-10.9); Hematocrit 31.2 VOL% (42.0-52.0); Hemoglobin 9.8 GM/DL (14.0-18.0); Immature Granulocytes % 0.3 %; Immature Granulocytes Absolute 0.02 #; Lymphocytes % 25.2 % (21.2-54.2); Mean Corpuscular HGB Conc 31.4 GM/DL (32-36); Mean Corpuscular Hemoglobin 26 PG (27-34); Mean Corpuscular Volume 83.2 FL (87-102); Mean Platelet Volume 9.9 FL (9.6-12.0); Monocytes # 0.7 10*3/uL (0.11-0.8); Monocytes % 9.2 % (1.7-12.7); Neutrophils # 4.5 10*3/uL (1.4-7.4); Neutrophils % 57.4 % (38.7-73.9); Platelet Count 226 T/CUMM (130-400); Red Blood Count 3.75 MC/CUMM (3.8-5.5); Red Cell Distribution Width 14.6 % (9.3-17.3); White Blood Count 7.8 T/CUMM (4-12)
[2018-07-17 05:59] LABS: INR 1.1; PT Patient Result 12.3 SECS
[2018-07-17 06:09] LABS: Calcium 8.5 MG/DL (8.5-10.1)
[2018-07-17 06:10] LABS: Osmolality,Calculated 284.5 MOS/KG (273-304)
[2018-07-17 06:21] LABS: Free T4 (Free Thyroxine) 0.83 NG/DL (0.76-1.46); Thyroid Stimulating Hormone 7.7 uIU/ml (0.358-3.74)
[2018-07-17] MEDS: PHENYTOIN ER 100 MG CAPSULE PO SCH ×3 (07:54→21:52)
[2018-07-17] MEDS: ALBUTEROL/IPRATROPIUM 3 ML NEB RESP TX SCH ×2 (08:14→19:40)
[2018-07-17] MEDS ORDERED: LIDOCAINE 2% 5 ML VIAL ONE (09:00)
[2018-07-17] MEDS ORDERED: PROPOFOL 200 MG/20 ML VIAL IV ONE (09:00)
[2018-07-17] MEDS: INSULIN REGULAR 100 UNIT/ML SUBCUT SCH ×3 (11:28→23:40)
[2018-07-17] MEDS: LORATADINE 10 MG TABLET PO SCH (16:29)
[2018-07-17] MEDS: ATENOLOL 50 MG TABLET PO SCH (18:21)
[2018-07-17] MEDS: FUROSEMIDE 40 MG TABLET PO SCH (18:21)
[2018-07-17] MEDS: PANTOPRAZOLE 40 MG TABLET PO SCH ×2 (18:21→18:29)
[2018-07-17] MEDS: SERTRALINE 100 MG TABLET PO SCH (18:21)
[2018-07-17] MEDS: FOLIC ACID 1 MG TABLET PO SCH (18:21)
[2018-07-17] MEDS: POTASSIUM CHLORIDE 10 MEQ TABLET PO SCH (18:21)
[2018-07-17] MEDS: amLODIPine 10 MG TABLET PO SCH (18:21)
[2018-07-17] MEDS: ALLOPURINOL 300 MG TABLET PO SCH (18:21)
[2018-07-17] MEDS: CARBOXYMETHYLCELLULOSE 1% OPH SOLN LEFT EYE SCH ×2 (18:21→21:52)
[2018-07-17] MEDS: LISINOPRIL 10 MG TABLET PO SCH (18:21)
[2018-07-17] MEDS: DIVALPROEX 250 MG TABLET PO SCH ×3 (18:29→21:52)
[2018-07-17] MEDS: tiZANidine 4 MG TABLET PO SCH ×2 (18:31→21:52)
[2018-07-18] MEDS: PHENYTOIN 100 MG/4 ML UDCUP PO SCH ×2 (00:02→21:22)
[2018-07-18 06:05] LABS: Basophils % 0.5 % (0.0-0.8); Eosinophils # 0.6 10*3/uL (0.0-0.87); Eosinophils % 7.5 % (0.00-10.9); Hematocrit 31.4 VOL% (42.0-52.0); Hemoglobin 9.6 GM/DL (14.0-18.0); Immature Granulocytes % 0.2 %; Immature Granulocytes Absolute 0.02 #; Lymphocytes # 1.6 10*3/uL (1.4-4.0); Lymphocytes % 19.2 % (21.2-54.2); Mean Corpuscular HGB Conc 30.6 GM/DL (32-36); Mean Corpuscular Hemoglobin 26 PG (27-34); Mean Corpuscular Volume 83.7 FL (87-102); Mean Platelet Volume 10.5 FL (9.6-12.0); Monocytes % 11.7 % (1.7-12.7); Neutrophils % 60.9 % (38.7-73.9); Platelet Count 233 T/CUMM (130-400); Red Blood Count 3.75 MC/CUMM (3.8-5.5); Red Cell Distribution Width 14.6 % (9.3-17.3); White Blood Count 8.1 T/CUMM (4-12)
[2018-07-18 06:19] LABS: INR 1.2; PT Patient Result 12.6 SECS
[2018-07-18 06:29] LABS: Calcium 8.4 MG/DL (8.5-10.1); Osmolality,Calculated 289.5 MOS/KG (273-304); Potassium 3.9 MMOL/L (3.5-5.1)
[2018-07-18] MEDS: PHENYTOIN ER 100 MG CAPSULE PO SCH ×2 (07:33→14:41)
[2018-07-18] MEDS: ALBUTEROL/IPRATROPIUM 3 ML NEB RESP TX SCH ×2 (08:10→19:10)
[2018-07-18] MEDS: SERTRALINE 100 MG TABLET PO SCH (08:58)
[2018-07-18] MEDS: INSULIN REGULAR 100 UNIT/ML SUBCUT SCH ×4 (08:58→23:43)
[2018-07-18] MEDS: LORATADINE 10 MG TABLET PO SCH (08:59)
[2018-07-18] MEDS: CEFUROXIME 500 MG TABLET PO SCH ×2 (08:59→21:23)
[2018-07-18] MEDS: DIVALPROEX 250 MG TABLET PO SCH ×3 (08:59→21:23)
[2018-07-18] MEDS: LISINOPRIL 10 MG TABLET PO SCH (08:59)
[2018-07-18] MEDS: FOLIC ACID 1 MG TABLET PO SCH (09:00)
[2018-07-18] MEDS: ATENOLOL 50 MG TABLET PO SCH (09:00)
[2018-07-18] MEDS ORDERED: cloNIDine 0.1 MG/24 HR PATCH TRANSDERM SCH (09:00)
[2018-07-18] MEDS: amLODIPine 10 MG TABLET PO SCH (09:00)
[2018-07-18] MEDS: ALLOPURINOL 300 MG TABLET PO SCH (09:00)
[2018-07-18] MEDS: tiZANidine 4 MG TABLET PO SCH ×2 (09:00→21:23)
[2018-07-18] MEDS: PANTOPRAZOLE 40 MG TABLET PO SCH ×2 (09:00→17:47)
[2018-07-18] MEDS: FUROSEMIDE 40 MG TABLET PO SCH (09:00)
[2018-07-18] MEDS: POTASSIUM CHLORIDE 10 MEQ TABLET PO SCH (09:00)
[2018-07-18] MEDS: CARBOXYMETHYLCELLULOSE 1% OPH SOLN LEFT EYE SCH ×2 (09:07→21:24)
[2018-07-19] MEDS: PHENYTOIN ER 100 MG CAPSULE PO SCH ×3 (01:34→14:59)
[2018-07-19 06:43] LABS: Basophils % 0.5 % (0.0-0.8); Eosinophils # 0.7 10*3/uL (0.0-0.87); Eosinophils % 8.7 % (0.00-10.9); Hematocrit 30.3 VOL% (42.0-52.0); Hemoglobin 9.4 GM/DL (14.0-18.0); Immature Granulocytes % 0.4 %; Immature Granulocytes Absolute 0.03 #; Lymphocytes # 2.7 10*3/uL (1.4-4.0); Lymphocytes % 34.9 % (21.2-54.2); Mean Corpuscular Hemoglobin 26 PG (27-34); Mean Corpuscular Volume 83.7 FL (87-102); Mean Platelet Volume 10.2 FL (9.6-12.0); Monocytes % 13.2 % (1.7-12.7); Neutrophils # 3.3 10*3/uL (1.4-7.4); Neutrophils % 42.3 % (38.7-73.9); Platelet Count 230 T/CUMM (130-400); Red Blood Count 3.62 MC/CUMM (3.8-5.5); Red Cell Distribution Width 14.9 % (9.3-17.3); White Blood Count 7.8 T/CUMM (4-12)
[2018-07-19 06:47] LABS: INR 1.1
[2018-07-19 07:03] LABS: Calcium 8.3 MG/DL (8.5-10.1); Osmolality,Calculated 282.4 MOS/KG (273-304)
[2018-07-19] MEDS: ALBUTEROL/IPRATROPIUM 3 ML NEB RESP TX SCH ×2 (07:27→18:48)
[2018-07-19] MEDS ORDERED: LIDOCAINE 2% 5 ML VIAL ONE (09:00)
[2018-07-19] MEDS ORDERED: PROPOFOL 200 MG/20 ML VIAL IV ONE (09:00)
[2018-07-19] MEDS: LORATADINE 10 MG TABLET PO SCH (14:58)
[2018-07-19] MEDS: DIVALPROEX 250 MG TABLET PO SCH ×3 (14:58→21:51)
[2018-07-19] MEDS: FOLIC ACID 1 MG TABLET PO SCH (14:58)
[2018-07-19] MEDS: SERTRALINE 100 MG TABLET PO SCH (14:59)
[2018-07-19] MEDS: POTASSIUM CHLORIDE 10 MEQ TABLET PO SCH (14:59)
[2018-07-19] MEDS: FUROSEMIDE 40 MG TABLET PO SCH (14:59)
[2018-07-19] MEDS: ALLOPURINOL 300 MG TABLET PO SCH (14:59)
[2018-07-19] MEDS: CEFUROXIME 500 MG TABLET PO SCH ×2 (14:59→21:51)
[2018-07-19] MEDS: PANTOPRAZOLE 40 MG TABLET PO SCH ×2 (14:59→16:45)
[2018-07-19] MEDS: tiZANidine 4 MG TABLET PO SCH (15:00)
[2018-07-19] MEDS: CARBOXYMETHYLCELLULOSE 1% OPH SOLN LEFT EYE SCH ×2 (15:01→21:55)
[2018-07-19] MEDS: INSULIN REGULAR 100 UNIT/ML SUBCUT SCH ×2 (16:43→16:44)
[2018-07-19] MEDS: LISINOPRIL 10 MG TABLET PO SCH (16:44)
[2018-07-19] MEDS: ATENOLOL 50 MG TABLET PO SCH (16:44)
[2018-07-19] MEDS: amLODIPine 10 MG TABLET PO SCH (16:44)
[2018-07-19] MEDS: SODIUM CHLORIDE 0.9% 1,000 ML IV SCH (17:00)
[2018-07-19] MEDS: PHENYTOIN 100 MG/4 ML UDCUP PO SCH (21:51)
[2018-07-20] MEDS: INSULIN REGULAR 100 UNIT/ML SUBCUT SCH ×5 (00:14→20:32)
[2018-07-20] MEDS: PHENYTOIN ER 100 MG CAPSULE PO SCH ×5 (00:31→22:32)
[2018-07-20] MEDS: tiZANidine 4 MG TABLET PO SCH ×3 (00:31→20:30)
[2018-07-20] MEDS: SODIUM CHLORIDE 0.9% 1,000 ML IV SCH ×2 (02:55)
[2018-07-20 06:35] LABS: Basophils % 0.6 % (0.0-0.8); Eosinophils # 0.5 10*3/uL (0.0-0.87); Eosinophils % 7.2 % (0.00-10.9); Hematocrit 28.5 VOL% (42.0-52.0); Hemoglobin 8.8 GM/DL (14.0-18.0); Immature Granulocytes % 0.1 %; Immature Granulocytes Absolute 0.01 #; Lymphocytes # 2.2 10*3/uL (1.4-4.0); Lymphocytes % 30.2 % (21.2-54.2); Mean Corpuscular HGB Conc 30.9 GM/DL (32-36); Mean Corpuscular Hemoglobin 26 PG (27-34); Mean Corpuscular Volume 84.3 FL (87-102); Mean Platelet Volume 10.1 FL (9.6-12.0); Monocytes # 0.7 10*3/uL (0.11-0.8); Neutrophils # 3.8 10*3/uL (1.4-7.4); Neutrophils % 51.9 % (38.7-73.9); Platelet Count 226 T/CUMM (130-400); Red Blood Count 3.38 MC/CUMM (3.8-5.5); Red Cell Distribution Width 14.8 % (9.3-17.3); White Blood Count 7.2 T/CUMM (4-12)
[2018-07-20 06:39] LABS: PT Patient Result 11.2 SECS
[2018-07-20 06:58] LABS: Calcium 7.9 MG/DL (8.5-10.1); Osmolality,Calculated 292.3 MOS/KG (273-304); Potassium 4.1 MMOL/L (3.5-5.1)
[2018-07-20] MEDS: ALBUTEROL/IPRATROPIUM 3 ML NEB RESP TX SCH ×2 (07:54→20:41)
[2018-07-20] MEDS: PANTOPRAZOLE 40 MG TABLET PO SCH ×2 (08:57→17:07)
[2018-07-20] MEDS: LISINOPRIL 10 MG TABLET PO SCH (08:57)
[2018-07-20] MEDS: amLODIPine 10 MG TABLET PO SCH (08:57)
[2018-07-20] MEDS: CEFUROXIME 500 MG TABLET PO SCH ×2 (08:57→20:30)
[2018-07-20] MEDS: ATENOLOL 50 MG TABLET PO SCH (08:57)
[2018-07-20] MEDS: FLUCONAZOLE 100 MG TABLET PO SCH (08:57)
[2018-07-20] MEDS: FUROSEMIDE 40 MG TABLET PO SCH (08:57)
[2018-07-20] MEDS: DIVALPROEX 250 MG TABLET PO SCH ×3 (08:57→20:30)
[2018-07-20] MEDS: LORATADINE 10 MG TABLET PO SCH (08:57)
[2018-07-20] MEDS: ALLOPURINOL 300 MG TABLET PO SCH (08:57)
[2018-07-20] MEDS: FOLIC ACID 1 MG TABLET PO SCH (08:57)
[2018-07-20] MEDS: POTASSIUM CHLORIDE 10 MEQ TABLET PO SCH (08:57)
[2018-07-20] MEDS: SERTRALINE 100 MG TABLET PO SCH (08:58)
[2018-07-20] MEDS: FERROUS SULFATE 325 MG TABLET PO SCH ×2 (08:58→20:30)
[2018-07-20] MEDS: CARBOXYMETHYLCELLULOSE 1% OPH SOLN LEFT EYE SCH ×2 (08:59→20:31)
[2018-07-20] MEDS: PHENYTOIN 100 MG/4 ML UDCUP PO SCH (20:31)
[2018-07-21] MEDS: SODIUM CHLORIDE 0.9% 1,000 ML IV SCH (00:07)
[2018-07-21] MEDS: PHENYTOIN ER 100 MG CAPSULE PO SCH (05:58)
[2018-07-21 07:50] VITALS: BP 148/69
[2018-07-21] MEDS: ALBUTEROL/IPRATROPIUM 3 ML NEB RESP TX SCH (08:37)
[2018-07-21] MEDS: LORATADINE 10 MG TABLET PO SCH (08:42)
[2018-07-21] MEDS: LISINOPRIL 10 MG TABLET PO SCH (08:42)
[2018-07-21] MEDS: FOLIC ACID 1 MG TABLET PO SCH (08:43)
[2018-07-21] MEDS: CEFUROXIME 500 MG TABLET PO SCH (08:43)
[2018-07-21] MEDS: ATENOLOL 50 MG TABLET PO SCH (08:43)
[2018-07-21] MEDS: PANTOPRAZOLE 40 MG TABLET PO SCH (08:43)
[2018-07-21] MEDS: DIVALPROEX 250 MG TABLET PO SCH (08:43)
[2018-07-21] MEDS: FERROUS SULFATE 325 MG TABLET PO SCH (08:43)
[2018-07-21] MEDS: tiZANidine 4 MG TABLET PO SCH (08:43)
[2018-07-21] MEDS: FLUCONAZOLE 100 MG TABLET PO SCH (08:43)
[2018-07-21] MEDS: ALLOPURINOL 300 MG TABLET PO SCH (08:43)
[2018-07-21] MEDS: SERTRALINE 100 MG TABLET PO SCH (08:44)
[2018-07-21] MEDS: POTASSIUM CHLORIDE 10 MEQ TABLET PO SCH (08:44)
[2018-07-21] MEDS: INSULIN REGULAR 100 UNIT/ML SUBCUT SCH ×2 (08:44→11:59)
[2018-07-21] MEDS: FUROSEMIDE 40 MG TABLET PO SCH (08:44)
[2018-07-21] MEDS: amLODIPine 10 MG TABLET PO SCH (08:44)
[2018-07-21] MEDS: CARBOXYMETHYLCELLULOSE 1% OPH SOLN LEFT EYE SCH (08:46)
== END 2018-07-21 11:59 | DRG 378 ==
LOC: EDUNIT# → EDBD → N.ED 17:48 → N.EDINP 20:13 → N.5E 23:05
PROVIDERS: ADMIT Internal Medicine; ATTEND Internal Medicine

== ENCOUNTER 2018-09-19 17:26 | Inpatient (IN) ==
[2018-09-19] MEDS ORDERED: SODIUM CHLORIDE 0.9% 1,000 ML IV STA (17:48)
[2018-09-19 18:41] LABS: Basophils % 0.2 % (0.0-0.8); Hematocrit 31.6 VOL% (42.0-52.0); Hemoglobin 9.9 GM/DL (14.0-18.0); Immature Granulocytes % 1.6 %; Immature Granulocytes Absolute 0.31 #; Lymphocytes # 1.5 10*3/uL (1.4-4.0); Lymphocytes % 7.5 % (21.2-54.2); Mean Corpuscular HGB Conc 31.3 GM/DL (32-36); Mean Corpuscular Volume 87.1 FL (87-102); Mean Platelet Volume 10.3 FL (9.6-12.0); Monocytes % 9.1 % (1.7-12.7); Neutrophils % 81.6 % (38.7-73.9); Platelet Count 216 T/CUMM (130-400); Red Blood Count 3.63 MC/CUMM (3.8-5.5); Red Cell Distribution Width 15.9 % (9.3-17.3); White Blood Count 19.6 T/CUMM (4-12)
[2018-09-19 18:55] LABS: INR 1.1; PT Patient Result 11.4 SECS; Partial Thromboplastin Time 31.7 SECS (0-40)
[2018-09-19 19:08] LABS: Albumin 2.7 G/DL (3.4-5.0); Bilirubin,Total 0.4 MG/DL (0.2-1.0); Calcium 8.3 MG/DL (8.5-10.1); Osmolality,Calculated 292.5 MOS/KG (273-304); Total Protein 7.4 G/DL (6.4-8.3)
[2018-09-19 19:12] LABS: Troponin I 21.9 NG/ML (0.00-0.045)
[2018-09-19] MEDS ORDERED: ASPIRIN 325 MG TABLET PO STA (19:27)
[2018-09-19] MEDS ORDERED: ENOXAPARIN 120 MG/0.8 ML SYRINGE SUBCUT STA (19:27)
[2018-09-19 19:34] LABS: Apearance,Urine CLOUDY (Clear); Bacteria,Urine Many /HPF (Few); Bilirubin,Urine Negative (Negative); Blood, Urine Moderate mg/dL (Negative); Glucose,Urine (UA) Negative (Negative); Hyaline Casts,Urine 10 /LPF (0-3); Ketones,Urine Negative (Negative); Nitrite,Urine Negative (Negative); Protein,Urine Negative; RBC,Urine 42 /HPF (0-4); Squamous Epithelial Cell,Urine Occasional /HPF (0-10); Urine Color Red (Yellow); Urine Specific Gravity 1.006 (1.001-1.035); Urine Urobilinogen < 2.0 EU/DL (0.2-1.0); WBC,Urine 260 /HPF (0-6)
[2018-09-19] MEDS ORDERED: LEVOFLOXACIN INJ 750 MG in PREMIX 1 EACH IV STA (19:39)
[2018-09-19] MEDS ORDERED: ONDANSETRON 4 MG/2 ML VIAL IV PRN (20:01)
[2018-09-19] MEDS ORDERED: GLUCAGON 1 MG VIAL IM PRN (20:01)
[2018-09-19] MEDS ORDERED: ACETAMINOPHEN 500 MG TABLET PO PRN (20:01)
[2018-09-19] MEDS ORDERED: DEXTROSE 50% 25 GM/50 ML SYRINGE IV PRN (20:01)
[2018-09-20] MEDS: INSULIN REGULAR 100 UNIT/ML SUBCUT SCH ×5 (01:05→22:35)
[2018-09-20] MEDS: PHENYTOIN ER 100 MG CAPSULE PO SCH ×3 (01:10→15:43)
[2018-09-20] MEDS: tiZANidine 4 MG TABLET PO SCH ×3 (01:10→21:29)
[2018-09-20] MEDS: DIVALPROEX 250 MG TABLET PO SCH ×4 (01:10→21:30)
[2018-09-20] MEDS: SODIUM CHLORIDE 0.9% 1,000 ML IV SCH ×4 (01:10→22:58)
[2018-09-20] MEDS: ALBUTEROL/IPRATROPIUM 3 ML NEB RESP TX SCH ×4 (01:50→20:23)
[2018-09-20 05:45] LABS: CKMB % 1.3 %; Calcium 7.9 MG/DL (8.5-10.1); Osmolality,Calculated 293.2 MOS/KG (273-304)
[2018-09-20 05:50] LABS: Troponin I 17.7 NG/ML (0.00-0.045)
[2018-09-20] MEDS ORDERED: MAGNESIUM SULF RIDER 2 GM in PREMIX 1 EACH IV PRN (07:38)
[2018-09-20] MEDS ORDERED: POTASSIUM CHLORIDE RIDER 10 MEQ in PREMIX 1 EACH IV PRN (07:38)
[2018-09-20] MEDS ORDERED: HEPARIN/NACL 0.9% 2 UNITS/ML 1,000 ML IV ONE (07:41)
[2018-09-20] MEDS ORDERED: LIDOCAINE 1% 20 ML VIAL ONE ×2 (07:41→09:08)
[2018-09-20] MEDS ORDERED: TIROFIBAN 5,000 MCG/100 ML PREMIX IV ONE (07:55)
[2018-09-20] MEDS ORDERED: BIVALIRUDIN 250 MG VIAL IV ONE (07:57)
[2018-09-20] MEDS: TIROFIBAN 5,000 MCG/100 ML PREMIX IV SCH (08:01)
[2018-09-20] MEDS ORDERED: PHENYLEPH/MINERAL OIL/PETROLAT 57 GM TUBE TOP PRN (08:56)
[2018-09-20] MEDS ORDERED: INSULIN GLARGINE 100 UNIT/ML SUBCUT SCH (09:00)
[2018-09-20] MEDS ORDERED: ENOXAPARIN 120 MG/0.8 ML SYRINGE SUBCUT SCH (09:00)
[2018-09-20] MEDS ORDERED: ASPIRIN 325 MG TABLET PO SCH (09:00)
[2018-09-20] MEDS ORDERED: ZALEPLON 5 MG CAPSULE PO PRN (09:56)
[2018-09-20 11:38] LABS: Basophils % 0.2 % (0.0-0.8); Hematocrit 26.9 VOL% (42.0-52.0); Hemoglobin 8.3 GM/DL (14.0-18.0); Immature Granulocytes % 1.7 %; Immature Granulocytes Absolute 0.32 #; Lymphocytes # 1.4 10*3/uL (1.4-4.0); Lymphocytes % 7.5 % (21.2-54.2); Mean Corpuscular HGB Conc 30.9 GM/DL (32-36); Mean Corpuscular Volume 89.1 FL (87-102); Mean Platelet Volume 11.2 FL (9.6-12.0); Monocytes % 8.8 % (1.7-12.7); Neutrophils % 81.8 % (38.7-73.9); Platelet Count 206 T/CUMM (130-400); Red Blood Count 3.02 MC/CUMM (3.8-5.5); Red Cell Distribution Width 16.2 % (9.3-17.3); White Blood Count 19.1 T/CUMM (4-12)
[2018-09-20] MEDS ORDERED: TICAGRELOR 90 MG TABLET PO ONE (11:53)
[2018-09-20 12:15] LABS: CKMB % 1.4 %
[2018-09-20 12:20] LABS: Troponin I 28.3 NG/ML (0.00-0.045)
[2018-09-20] MEDS: SERTRALINE 50 MG TABLET PO SCH (13:20)
[2018-09-20] MEDS: FOLIC ACID 1 MG TABLET PO SCH (13:21)
[2018-09-20] MEDS: DONEPEZIL 10 MG TABLET PO SCH (13:21)
[2018-09-20] MEDS: PANTOPRAZOLE 40 MG TABLET PO SCH (13:21)
[2018-09-20] MEDS: FERROUS SULFATE 325 MG TABLET PO SCH ×2 (13:21→21:29)
[2018-09-20] MEDS: INSULIN LISPRO 100 UNIT/ML SUBCUT SCH ×5 (13:39→22:07)
[2018-09-20] MEDS ORDERED: SODIUM CHLORIDE 0.9% 250 ML IV ONE (15:41)
[2018-09-20 15:52] LABS: Hematocrit 21.2 VOL% (42.0-52.0); Hemoglobin 6.5 GM/DL (14.0-18.0)
[2018-09-20] MEDS ORDERED: PHENYTOIN 100 MG/2 ML VIAL IV ONE (16:04)
[2018-09-20] MEDS ORDERED: SODIUM CHLORIDE 0.9% 1,000 ML IV PRN ×2 (16:08→16:09)
[2018-09-20 16:14] LABS: ABG HCO3 11.5 MMOL/L (20-26); ABG Oxygen Saturation 99.1 % (95-100); ABG PCO2 23.7 MM HG (35-48); ABG PH 7.218 (7.35-7.45); ABG TCO2 9.1 MMOL/L (23-27)
[2018-09-20] MEDS ORDERED: LORazepam 2 MG/1 ML VIAL ONE ×2 (16:19→19:19)
[2018-09-20] MEDS ORDERED: MIDAZOLAM 2 MG/2 ML VIAL ONE (17:23)
[2018-09-20] MEDS ORDERED: MIDAZOLAM 2 MG/2 ML VIAL IV ONE (17:24)
[2018-09-20] MEDS ORDERED: MIDAZOLAM 10 MG/2 ML VIAL ONE (17:24)
[2018-09-20] MEDS ORDERED: PROPOFOL 1,000 MG/100 ML BOTTLE IV ONE (17:37)
[2018-09-20 18:33] LABS: CKMB % 1.4 %
[2018-09-20 18:39] LABS: Troponin I 28.2 NG/ML (0.00-0.045)
[2018-09-20] MEDS ORDERED: LORazepam 2 MG/1 ML VIAL IV ONE (19:17)
[2018-09-20 20:40] LABS: ABG Base Excess -13.8 MMOL/L (-2.5-2.5); ABG HCO3 13.8 MMOL/L (20-26); ABG Oxygen Saturation 99.9 % (95-100); ABG PCO2 23.9 MM HG (35-48); ABG PH 7.292 (7.35-7.45); ABG TCO2 10.6 MMOL/L (23-27); Allen Test Positive; Pt O2 Delivery Device Ventilator
[2018-09-20] MEDS: PHENYLEPHRINE DRIP 40 MG/250 ML PREMIX IV PRN (20:47)
[2018-09-20] MEDS ORDERED: INSULIN DETEMIR 100 UNIT/ML SUBCUT SCH (21:00)
[2018-09-20] MEDS: MEMANTINE 10 MG TABLET PO SCH (21:29)
[2018-09-20] MEDS: QUEtiapine 25 MG TABLET PO SCH (21:29)
[2018-09-20] MEDS: ROSUVASTATIN 20 MG TABLET PO SCH (21:29)
[2018-09-20] MEDS: TICAGRELOR 90 MG TABLET PO SCH (21:30)
[2018-09-20] MEDS: PHENYTOIN 100 MG/4 ML UDCUP PO SCH (21:41)
[2018-09-20 22:00] LABS: Hemoglobin 11.4 GM/DL (14.0-18.0)
[2018-09-21] MEDS: ALBUTEROL/IPRATROPIUM 3 ML NEB RESP TX SCH ×4 (00:26→18:54)
[2018-09-21] MEDS: INSULIN LISPRO 100 UNIT/ML SUBCUT SCH ×12 (00:36→19:08)
[2018-09-21 03:37] LABS: Basophils % 0.1 % (0.0-0.8); Hematocrit 30.1 VOL% (42.0-52.0); Hemoglobin 9.6 GM/DL (14.0-18.0); Immature Granulocytes % 1.3 %; Immature Granulocytes Absolute 0.26 #; Lymphocytes # 1.4 10*3/uL (1.4-4.0); Lymphocytes % 6.6 % (21.2-54.2); Mean Corpuscular HGB Conc 31.9 GM/DL (32-36); Mean Corpuscular Volume 87.5 FL (87-102); Mean Platelet Volume 11.8 FL (9.6-12.0); Monocytes % 6.6 % (1.7-12.7); NRBC # 0.03 10*3/uL; Neutrophils % 85.4 % (38.7-73.9); Platelet Count 215 T/CUMM (130-400); Red Blood Count 3.44 MC/CUMM (3.8-5.5); Red Cell Distribution Width 15.4 % (9.3-17.3); White Blood Count 20.6 T/CUMM (4-12)
[2018-09-21 03:42] LABS: Albumin 2.1 G/DL (3.4-5.0); Bilirubin,Direct 0.2 MG/DL (0.0-0.20); Bilirubin,Indirect 0.2 MG/DL (0.0-1.0); Bilirubin,Total 0.4 MG/DL (0.2-1.0); CKMB % 1.5 %; Total Protein 6.4 G/DL (6.4-8.3)
[2018-09-21 03:45] LABS: Troponin I 26.7 NG/ML (0.00-0.045)
[2018-09-21] MEDS: TIROFIBAN 5,000 MCG/100 ML PREMIX IV SCH (03:51)
[2018-09-21 03:56] LABS: Band Neutrophils 3 % (0-10); Lymphocytes 6 % (20-55); Segmented Neutrophils 87 % (50-85); Total Cells Counted 100
[2018-09-21 03:58] LABS: Calcium 7.3 MG/DL (8.5-10.1)
[2018-09-21 04:00] LABS: Anisocytosis 1+; Platelet Estimate Adequate
[2018-09-21 04:42] LABS: ABG Base Excess -11.2 MMOL/L (-2.5-2.5); ABG HCO3 15.6 MMOL/L (20-26); ABG Oxygen Saturation 99.9 % (95-100); ABG PCO2 29.5 MM HG (35-48); ABG PH 7.294 (7.35-7.45); ABG TCO2 13.2 MMOL/L (23-27); Allen Test Positive; Pt O2 Delivery Device Ventilator
[2018-09-21] MEDS: PROPOFOL 1,000 MG/100 ML BOTTLE IV SCH ×3 (06:19→23:47)
[2018-09-21] MEDS: FOLIC ACID 1 MG TABLET PO SCH (09:39)
[2018-09-21] MEDS: SERTRALINE 50 MG TABLET PO SCH (09:39)
[2018-09-21] MEDS: PHENYTOIN 100 MG/4 ML UDCUP PO SCH ×3 (09:39→21:47)
[2018-09-21] MEDS: ASPIRIN EC 81 MG TABLET PO SCH (09:39)
[2018-09-21] MEDS: PANTOPRAZOLE 40 MG TABLET PO SCH (09:40)
[2018-09-21] MEDS: DIVALPROEX 250 MG TABLET PO SCH ×3 (09:40→21:41)
[2018-09-21] MEDS: tiZANidine 4 MG TABLET PO SCH ×2 (09:40→21:40)
[2018-09-21] MEDS: TICAGRELOR 90 MG TABLET PO SCH ×2 (09:40→21:41)
[2018-09-21] MEDS: FERROUS SULFATE 325 MG TABLET PO SCH ×2 (09:40→21:40)
[2018-09-21] MEDS: DONEPEZIL 10 MG TABLET PO SCH (09:40)
[2018-09-21 10:41] LABS: Hematocrit 29.4 VOL% (42.0-52.0); Hemoglobin 9.1 GM/DL (14.0-18.0)
[2018-09-21] MEDS: PHENYLEPHRINE DRIP 40 MG/250 ML PREMIX IV PRN ×2 (12:28→22:05)
[2018-09-21] MEDS: SODIUM BICARB INJ 50 MEQ in SODIUM CHLORIDE 0.45% 1,000 ML IV SCH (14:51)
[2018-09-21] MEDS: SODIUM CHLORIDE 0.9% 1,000 ML IV SCH (15:21)
[2018-09-21 18:51] LABS: Hematocrit 26.1 VOL% (42.0-52.0); Hemoglobin 8.4 GM/DL (14.0-18.0)
[2018-09-21] MEDS ORDERED: LORazepam 2 MG/1 ML VIAL IV ONE (20:45)
[2018-09-21] MEDS ORDERED: LORazepam 2 MG/1 ML VIAL ONE (20:48)
[2018-09-21] MEDS ORDERED: LORazepam 2 MG/1 ML VIAL IV PRN (20:52)
[2018-09-21] MEDS: ROSUVASTATIN 20 MG TABLET PO SCH (21:41)
[2018-09-21] MEDS: MEMANTINE 10 MG TABLET PO SCH (21:41)
[2018-09-21] MEDS: QUEtiapine 25 MG TABLET PO SCH (21:47)
[2018-09-21] MEDS: LEVOFLOXACIN INJ 750 MG in PREMIX 1 EACH IV SCH (21:53)
[2018-09-22] MEDS: INSULIN LISPRO 100 UNIT/ML SUBCUT SCH ×4 (00:04→18:48)
[2018-09-22] MEDS: SODIUM BICARB INJ 50 MEQ in SODIUM CHLORIDE 0.45% 1,000 ML IV SCH ×2 (01:05→09:08)
[2018-09-22] MEDS: PHENYLEPHRINE DRIP 40 MG/250 ML PREMIX IV PRN ×3 (01:57→09:39)
[2018-09-22] MEDS: ALBUTEROL/IPRATROPIUM 3 ML NEB RESP TX SCH ×4 (02:19→19:00)
[2018-09-22] MEDS: PHENYTOIN 100 MG/4 ML UDCUP PO SCH ×4 (04:31→20:52)
[2018-09-22] MEDS ORDERED: SODIUM CHLORIDE 0.9% 1,000 ML IV PRN (04:37)
[2018-09-22] MEDS ORDERED: NOREPINEPHRINE 4 MG/4 ML VIAL IV ONE ×2 (05:10→05:16)
[2018-09-22] MEDS ORDERED: EPINEPHrine 1 MG/10 ML SYRINGE IV ONE (05:13)
[2018-09-22] MEDS: NOREPINEPHRINE 8 MG in SODIUM CHLORIDE 0.9% 242 ML IV PRN ×3 (05:16→12:27)
[2018-09-22] MEDS ORDERED: SODIUM BICARBONATE 50 MEQ/50 ML SYRINGE IV ONE (05:17)
[2018-09-22] MEDS ORDERED: DOPamine 800 MG/250 ML PREMIX IV ONE (05:19)
[2018-09-22] MEDS: DOPamine 800 MG/250 ML PREMIX IV PRN ×6 (05:19→21:07)
[2018-09-22 05:20] LABS: Basophils % 0.2 % (0.0-0.8); Hemoglobin 8.9 GM/DL (14.0-18.0); Immature Granulocytes % 2.4 %; Immature Granulocytes Absolute 0.49 #; Lymphocytes # 2.7 10*3/uL (1.4-4.0); Lymphocytes % 13.6 % (21.2-54.2); Mean Corpuscular HGB Conc 29.7 GM/DL (32-36); Mean Corpuscular Volume 95.5 FL (87-102); Mean Platelet Volume 11.5 FL (9.6-12.0); Monocytes % 4.6 % (1.7-12.7); NRBC # 0.21 10*3/uL; Neutrophils % 79.2 % (38.7-73.9); Platelet Count 270 T/CUMM (130-400); Red Blood Count 3.14 MC/CUMM (3.8-5.5); Red Cell Distribution Width 16.7 % (9.3-17.3); White Blood Count 20.1 T/CUMM (4-12)
[2018-09-22 05:22] LABS: Hematocrit 29.8 VOL% (42.0-52.0); Hemoglobin 8.9 GM/DL (14.0-18.0)
[2018-09-22 05:37] LABS: Allen Test Positive; Pt O2 Delivery Device Ventilator
[2018-09-22 05:38] LABS: ABG Base Excess -27.6 MMOL/L (-2.5-2.5); ABG HCO3 5.5 MMOL/L (20-26); ABG Oxygen Saturation 97.4 % (95-100); ABG PCO2 28.8 MM HG (35-48); ABG TCO2 5.2 MMOL/L (23-27)
[2018-09-22 05:40] LABS: ABG PH 6.842 (7.35-7.45)
[2018-09-22 05:54] LABS: Bilirubin,Direct 0.22 MG/DL (0.0-0.20); Bilirubin,Indirect 0.3 MG/DL (0.0-1.0); Bilirubin,Total 0.5 MG/DL (0.2-1.0); Total Protein 5.6 G/DL (6.4-8.3)
[2018-09-22 05:55] LABS: Albumin 1.9 G/DL (3.4-5.0); Bilirubin,Total 0.6 MG/DL (0.2-1.0); Osmolality,Calculated 294.1 MOS/KG (273-304); Total Protein 6.3 G/DL (6.4-8.3)
[2018-09-22 05:59] LABS: CKMB % 1.3 %
[2018-09-22 06:01] LABS: Troponin I 28.3 NG/ML (0.00-0.045)
[2018-09-22] MEDS ORDERED: SODIUM BICARBONATE 50 MEQ/50 ML VIAL IV ONE ×2 (06:05→06:19)
[2018-09-22 06:07] LABS: Prealbumin 8.2 MG/DL (20-40)
[2018-09-22] MEDS ORDERED: SODIUM POLYSTYRENE SULFATE 15 GM/60 ML BOTTLE PO ONE (06:07)
[2018-09-22 06:19] LABS: Hypochromasia 1+; Lymphocytes 13 % (20-55); Metamyelocytes 1 %; Microcytosis 1+; Platelet Estimate Normal; Segmented Neutrophils 84 % (50-85); Total Cells Counted 100
[2018-09-22 06:20] LABS: Calcium 7.6 MG/DL (8.5-10.1); Polychromasia Few
[2018-09-22] MEDS ORDERED: INSULIN REGULAR 100 UNIT/ML IV ONE (06:20)
[2018-09-22] MEDS ORDERED: DEXTROSE 50% 25 GM/50 ML SYRINGE IV ONE (06:20)
[2018-09-22] MEDS ORDERED: ENOXAPARIN 100 MG/ML SYRINGE SUBCUT ONE (06:20)
[2018-09-22 07:33] LABS: Pt O2 Delivery Device Ventilator
[2018-09-22 07:34] LABS: ABG Base Excess -24.1 MMOL/L (-2.5-2.5); ABG HCO3 5.2 MMOL/L (20-26); ABG Oxygen Saturation 99.1 % (95-100); ABG PO2 283.4 MM HG (80-95); ABG TCO2 5.8 MMOL/L (23-27)
[2018-09-22 07:35] LABS: ABG PH 7.022 (7.35-7.45)
[2018-09-22 07:36] LABS: ABG PCO2 20.4 MM HG (35-48)
[2018-09-22 08:11] LABS: Apearance,Urine CLOUDY (Clear); Bacteria,Urine Moderate /HPF (Few); Bilirubin,Urine Negative (Negative); Blood, Urine Moderate mg/dL (Negative); Glucose,Urine (UA) Negative (Negative); Ketones,Urine Negative (Negative); Mucus,Urine Few /LPF (Occasional); Nitrite,Urine Negative (Negative); Protein,Urine 100 MG/DL; RBC,Urine 22 /HPF (0-4); Urine Color Amber (Yellow); Urine Specific Gravity 1.038 (1.001-1.035); WBC,Urine 9 /HPF (0-6)
[2018-09-22] MEDS: CLINDAMYCIN INJ 600 MG in PREMIX 1 EACH IV SCH ×3 (09:08→18:48)
[2018-09-22] MEDS: PANTOPRAZOLE 40 MG VIAL IV SCH (10:05)
[2018-09-22] MEDS: VALPROIC ACID 250 MG/5 ML UDCUP PO SCH ×3 (10:06→20:51)
[2018-09-22] MEDS: FOLIC ACID 1 MG TABLET PO SCH (10:06)
[2018-09-22] MEDS: DONEPEZIL 10 MG TABLET PO SCH (10:06)
[2018-09-22] MEDS: FERROUS SULFATE 325 MG TABLET PO SCH ×2 (10:06→20:51)
[2018-09-22] MEDS: ASPIRIN CHEW 81 MG TABLET PO SCH (10:07)
[2018-09-22] MEDS: TICAGRELOR 90 MG TABLET PO SCH ×2 (10:07→20:52)
[2018-09-22] MEDS: tiZANidine 4 MG TABLET PO SCH ×2 (10:07→20:51)
[2018-09-22] MEDS: SERTRALINE 50 MG TABLET PO SCH (10:07)
[2018-09-22] MEDS: DIVALPROEX 250 MG TABLET PO SCH (10:09)
[2018-09-22] MEDS: PANTOPRAZOLE 40 MG TABLET PO SCH (10:09)
[2018-09-22] MEDS: ASPIRIN EC 81 MG TABLET PO SCH (10:09)
[2018-09-22] MEDS: PROPOFOL 1,000 MG/100 ML BOTTLE IV SCH ×2 (10:40→21:08)
[2018-09-22] MEDS: PHENYLEPHRINE INJ 160 MG in SODIUM CHLORIDE 0.9% 234 ML IV PRN ×2 (12:24→19:58)
[2018-09-22] MEDS: SODIUM BICARB INJ 150 MEQ in DEXTROSE 5% 850 ML IV SCH ×2 (13:26→20:52)
[2018-09-22 18:34] LABS: Hematocrit 35.7 VOL% (42.0-52.0)
[2018-09-22 18:40] LABS: Hemoglobin 11.4 GM/DL (14.0-18.0)
[2018-09-22 19:01] VITALS: BP 122/70
[2018-09-22] MEDS: QUEtiapine 25 MG TABLET PO SCH (20:51)
[2018-09-22] MEDS: ROSUVASTATIN 20 MG TABLET PO SCH (20:51)
[2018-09-22] MEDS: MEMANTINE 10 MG TABLET PO SCH (20:53)
[2018-09-22] MEDS: NOREPINEPHRINE 16 MG in SODIUM CHLORIDE 0.9% 234 ML IV PRN (22:44)
[2018-09-23] MEDS: INSULIN LISPRO 100 UNIT/ML SUBCUT SCH ×11 (00:12→22:41)
[2018-09-23] MEDS: ALBUTEROL/IPRATROPIUM 3 ML NEB RESP TX SCH ×4 (00:32→18:40)
[2018-09-23] MEDS: DOPamine 800 MG/250 ML PREMIX IV PRN ×4 (01:17→22:30)
[2018-09-23] MEDS: CLINDAMYCIN INJ 600 MG in PREMIX 1 EACH IV SCH ×5 (02:26→18:24)
[2018-09-23 02:44] LABS: Basophils % 0.2 % (0.0-0.8); Hematocrit 34.5 VOL% (42.0-52.0); Hemoglobin 11.1 GM/DL (14.0-18.0); Immature Granulocytes % 2.2 %; Immature Granulocytes Absolute 0.27 #; Lymphocytes # 0.8 10*3/uL (1.4-4.0); Lymphocytes % 6.2 % (21.2-54.2); Mean Corpuscular HGB Conc 32.2 GM/DL (32-36); Mean Corpuscular Volume 85.2 FL (87-102); Mean Platelet Volume 11.2 FL (9.6-12.0); Monocytes % 3.7 % (1.7-12.7); NRBC # 0.03 10*3/uL; Neutrophils % 87.7 % (38.7-73.9); Platelet Count 179 T/CUMM (130-400); Red Blood Count 4.05 MC/CUMM (3.8-5.5); Red Cell Distribution Width 17.2 % (9.3-17.3); White Blood Count 12.5 T/CUMM (4-12)
[2018-09-23 03:30] LABS: Allen Test Positive; Pt O2 Delivery Device Ventilator
[2018-09-23 03:31] LABS: ABG Base Excess -11.6 MMOL/L (-2.5-2.5); ABG HCO3 14.1 MMOL/L (20-26); ABG Oxygen Saturation 97.8 % (95-100); ABG PCO2 31.3 MM HG (35-48); ABG PO2 120.3 MM HG (80-95)
[2018-09-23 03:42] LABS: Albumin 1.7 G/DL (3.4-5.0); Bilirubin,Total 0.8 MG/DL (0.2-1.0); Calcium 6.3 MG/DL (8.5-10.1); Osmolality,Calculated 315.2 MOS/KG (273-304); Total Protein 5.4 G/DL (6.4-8.3)
[2018-09-23] MEDS: PHENYTOIN 100 MG/4 ML UDCUP PO SCH ×4 (03:45→20:52)
[2018-09-23] MEDS: SODIUM BICARB INJ 150 MEQ in DEXTROSE 5% 850 ML IV SCH ×2 (03:58→13:27)
[2018-09-23 04:11] LABS: Band Neutrophils 11 % (0-10); Eosinophils 1 % (0-10); Lymphocytes 8 % (20-55); Metamyelocytes 4 %; Segmented Neutrophils 73 % (50-85); Total Cells Counted 100
[2018-09-23 04:13] LABS: Burr Cells 2+; Platelet Estimate Normal
[2018-09-23 04:15] LABS: Polychromasia 1+
[2018-09-23 05:09] LABS: Albumin 1.6 G/DL (3.4-5.0); Bilirubin,Direct 0.43 MG/DL (0.0-0.20); Bilirubin,Indirect 0.5 MG/DL (0.0-1.0); Bilirubin,Total 0.9 MG/DL (0.2-1.0); Total Protein 4.8 G/DL (6.4-8.3)
[2018-09-23] MEDS: SODIUM BICARB INJ 100 MEQ in SODIUM CHLORIDE 0.45% 1,000 ML IV SCH ×3 (05:21→20:39)
[2018-09-23] MEDS: PHENYLEPHRINE INJ 160 MG in SODIUM CHLORIDE 0.9% 234 ML IV PRN ×2 (05:47→17:15)
[2018-09-23] MEDS: PANTOPRAZOLE 40 MG VIAL IV SCH (09:13)
[2018-09-23] MEDS: ASPIRIN CHEW 81 MG TABLET PO SCH (09:15)
[2018-09-23] MEDS: DONEPEZIL 10 MG TABLET PO SCH (09:15)
[2018-09-23] MEDS: VALPROIC ACID 250 MG/5 ML UDCUP PO SCH ×3 (09:15→20:52)
[2018-09-23] MEDS: FOLIC ACID 1 MG TABLET PO SCH (09:15)
[2018-09-23] MEDS: TICAGRELOR 90 MG TABLET PO SCH ×2 (09:15→20:54)
[2018-09-23] MEDS: SERTRALINE 50 MG TABLET PO SCH (09:15)
[2018-09-23] MEDS: tiZANidine 4 MG TABLET PO SCH ×2 (09:15→20:54)
[2018-09-23] MEDS: FERROUS SULFATE 325 MG TABLET PO SCH ×2 (09:15→20:53)
[2018-09-23 10:25] LABS: Hemoglobin 10.8 GM/DL (14.0-18.0)
[2018-09-23] MEDS: INSULIN GLARGINE 100 UNIT/ML SUBCUT SCH ×2 (10:56→20:56)
[2018-09-23] MEDS: PROPOFOL 1,000 MG/100 ML BOTTLE IV SCH ×2 (15:58→19:49)
[2018-09-23] MEDS ORDERED: SUCCINYLCHOLINE 200 MG/10 ML VIAL ONE (16:19)
[2018-09-23] MEDS: MEMANTINE 10 MG TABLET PO SCH (20:29)
[2018-09-23 20:38] LABS: Hematocrit 33.3 VOL% (42.0-52.0); Hemoglobin 10.9 GM/DL (14.0-18.0)
[2018-09-23] MEDS: QUEtiapine 25 MG TABLET PO SCH (20:54)
[2018-09-23] MEDS: LEVOFLOXACIN INJ 750 MG in PREMIX 1 EACH IV SCH (20:55)
[2018-09-24] MEDS: INSULIN LISPRO 100 UNIT/ML SUBCUT SCH (00:32)
[2018-09-24] MEDS: CLINDAMYCIN INJ 600 MG in PREMIX 1 EACH IV SCH ×2 (00:32→10:37)
[2018-09-24] MEDS: ALBUTEROL/IPRATROPIUM 3 ML NEB RESP TX SCH ×2 (01:07→08:10)
[2018-09-24] MEDS: PHENYLEPHRINE INJ 160 MG in SODIUM CHLORIDE 0.9% 234 ML IV PRN (01:33)
[2018-09-24] MEDS: NOREPINEPHRINE 16 MG in SODIUM CHLORIDE 0.9% 234 ML IV PRN (01:57)
[2018-09-24 02:41] LABS: ABG Oxygen Saturation 94.5 % (95-100); ABG PCO2 27.8 MM HG (35-48); ABG PH 7.291 (7.35-7.45); ABG PO2 83.1 MM HG (80-95); ABG TCO2 12.2 MMOL/L (23-27); Allen Test Positive; Pt O2 Delivery Device Ventilator
[2018-09-24] MEDS: DOPamine 800 MG/250 ML PREMIX IV PRN (02:55)
[2018-09-24] MEDS: PHENYTOIN 100 MG/4 ML UDCUP PO SCH ×2 (03:40→10:38)
[2018-09-24 05:20] LABS: Basophils # 0.1 10*3/uL (0.0-0.2); Basophils % 0.8 % (0.0-0.8); Eosinophils % 0.1 % (0.00-10.9); Hematocrit 32.1 VOL% (42.0-52.0); Hemoglobin 10.8 GM/DL (14.0-18.0); Immature Granulocytes % 1.1 %; Immature Granulocytes Absolute 0.16 #; Lymphocytes # 0.8 10*3/uL (1.4-4.0); Lymphocytes % 5.4 % (21.2-54.2); Mean Corpuscular HGB Conc 33.6 GM/DL (32-36); Mean Corpuscular Volume 81.9 FL (87-102); Mean Platelet Volume 10.8 FL (9.6-12.0); Monocytes % 3.5 % (1.7-12.7); NRBC # 0.21 10*3/uL; Neutrophils % 89.1 % (38.7-73.9); Platelet Count 130 T/CUMM (130-400); Red Blood Count 3.92 MC/CUMM (3.8-5.5); Red Cell Distribution Width 17.3 % (9.3-17.3); White Blood Count 14.5 T/CUMM (4-12)
[2018-09-24 05:44] LABS: Band Neutrophils 16 % (0-10); Burr Cells Slight; Hypochromasia 1+; Lymphocytes 5 % (20-55); Myelocytes 2 %; Nucleated Red Blood Cells 3 (0-5); Ovalocytes Slight; Platelet Estimate Adequate; Segmented Neutrophils 73 % (50-85); Total Cells Counted 100
[2018-09-24 05:45] LABS: Microcytosis Slight
[2018-09-24] MEDS ORDERED: INSULIN LISPRO 100 UNIT/ML SUBCUT SCH (06:00)
[2018-09-24 06:04] LABS: Albumin 1.5 G/DL (3.4-5.0); Osmolality,Calculated 294.1 MOS/KG (273-304); Total Protein 4.9 G/DL (6.4-8.3)
[2018-09-24] MEDS ORDERED: VECURONIUM 10 MG VIAL IV ONE (06:21)
[2018-09-24 06:32] LABS: Calcium 5.8 MG/DL (8.5-10.1)
[2018-09-24] MEDS: ASPIRIN CHEW 81 MG TABLET PO SCH (10:37)
[2018-09-24] MEDS: VALPROIC ACID 250 MG/5 ML UDCUP PO SCH (10:38)
[2018-09-24] MEDS: DONEPEZIL 10 MG TABLET PO SCH (10:38)
[2018-09-24] MEDS: TICAGRELOR 90 MG TABLET PO SCH (10:38)
[2018-09-24] MEDS: FERROUS SULFATE 325 MG TABLET PO SCH (10:39)
[2018-09-24] MEDS: INSULIN GLARGINE 100 UNIT/ML SUBCUT SCH (10:39)
[2018-09-24] MEDS: FOLIC ACID 1 MG TABLET PO SCH (10:39)
[2018-09-24] MEDS: SERTRALINE 50 MG TABLET PO SCH (10:39)
[2018-09-24] MEDS: tiZANidine 4 MG TABLET PO SCH (10:39)
[2018-09-24] MEDS: PANTOPRAZOLE 40 MG VIAL IV SCH (10:39)
== END 2018-09-24 07:57 | disposition expired | DRG 246 ==
LOC: EDUNIT# → EDBD → N.ED 17:26 → N.EDINP 19:59 → N.TELEN 23:11 → N.CC 09-20 12:05
PROVIDERS: ADMIT Internal Medicine; ATTEND Internal Medicine
PROC: CLCCHCL (ICD-10-PCS; 2018-09-20 08:15)